=== PATIENT | male | born 1965 | race Caucasian/White ===

== ENCOUNTER 2016-03-04 19:24 | Emergency (ER) | payer OTHER, MEDICARE ==
[~2016-03-04] VITALS: Ht 177.8 cm; Wt 143.8 kg
[~2016-03-04 19:24] MED LIST: ABILIFY2 MG PO; KLOR-CON M1010 ME1 PO; LASIX20 M1 PO; NEURONTIN300 M1 PO; PRAVASTATIN SOD10 M2 PO; SEROQUEL XR400 M1 PO
--- NOTE | 2016-03-04 19:53 | ED DYSPNEA/ASTHMA COMPLAINT ---
History of Present Illness General Chief Complaint: Dyspnea (COPD, CHF, Other) Stated Complaint: DIFF BREATHING PER PT, O2 97% AT TWIST TESTER Source: patient Exam Limitations: no limitations Vital Signs & Intake/Output Vital Signs & Intake/Output Vital Signs Date Time Temp Pulse Resp B/P Pulse O2 O2 Flow FiO2 Ox Delivery Rate 03/049 98.2 99 20 128/61 96 Room Air 03/043 97.3 103 24 172/72 96 Room Air 03/049 95 Room Air 03/04 1938 98.9 112 22 136/90 96 Room Air ED Intake and Output 03/05 0000 03/04 1200 Intake Total Output Total 500 Balance -500 Output, Urine 500 Patient 317 lb Weight Allergies Coded Allergies: Iodinated Contrast Media - Oral and (IODINATED CONTRAST MEDIA - IV DYE) ( ANAPHYLAXIS 03/04/16) Reconcile Medications Albuterol Sulfate (Ventolin Hfa) 90 MCG HFA.AER.AD 2 PUF INH Q4H PRN COPD ( Reported) Albuterol Sulfate (Ventolin Hfa) 90 MCG HFA.AER.AD 2 PUF INH Q4-6 PRN PRN ASTHMA/COPD INCLUDE WITH SPACER Aripiprazole (Abilify) 15 MG TABLET 1 TAB PO DAILY MENTAL HEALTH (Reported) Benzonatate (Tessalon Perle) 100 MG CAPSULE 1-2 CAP PO TID PRN COUGH Clonazepam 0.5 MG TABLET 1 TAB PO 4 TIMES/DAY PRN ANXIETY (Reported) Furosemide (Lasix) 20 MG TABLET 20 MG PO D HEART (Reported) Furosemide 20 MG TABLET 1 TAB PO DAILY DIURETIC (Reported) Gabapentin (Neurontin) 300 MG CAPSULE 300 MG PO TID MENTAL HEALTH (Reported) Gabapentin 300 MG CAPSULE 1 CAP PO 4 TIMES/DAY MENTAL HEALTH (Reported) Levofloxacin (Levaquin) 500 MG TABLET 1 TAB PO DAILY BRONCHITIS Lisinopril 20 MG TABLET 1 TAB PO DAILY BP (Reported) Potassium Chloride (Klor-Con M10) 10 MEQ TAB.ER.PRT 20 MEQ PO BID HEART ( Reported) Potassium Chloride 20 MEQ TABLET.ER 1 TAB PO BID SUPPLEMENT (Reported) Pravastatin Sodium 40 MG TABLET 1 TAB PO QPM CHOLESTEROL (Reported) Prednisone 50 MG TABLET 1 TAB PO DAILY BRONCHITIS, COPD Quetiapine Fumarate (Seroquel XR) 300 MG TAB.ER.24H 1 TAB PO QHS MENTAL HEALTH (Reported) Quetiapine Fumarate (Seroquel) 50 MG TABLET 1 TAB PO BID PRN AGITATION ( Reported) Tamsulosin HCl 0.4 MG CAP.ER.24H 1 CAP PO DAILY URINARY (Reported) Triage Note: PT TO ED FOR NON-PRODUCTIVE COUGH AND URINARY RETENTION FOR 1 DAY, REPORTS SINCE LAST MONDAY HE HAS HAD A COLD AND IT HAS JUST BECOME PROGRESSIVELY WORSE. DENIES FEVER, NVD. Triage Nurses Notes Reviewed? yes Onset: Gradual Duration: week(s):, getting worse Timing: recent history Severity: moderate Activities at Onset: none Prior Episodes/Possible Cause: occasional episodes Modifying Factors: Improves With: rest. Associated Symptoms: cough, wheezing HPI: 50 yo gentleman, h/o 1/2 ppd smoker, h/o copd, presents with 11 days of cough productive of increased phlegm, wheezing, shortness of breath. He also notes that he is having urinary retention. "I haven't been able to pee since this evening." He is otherwise well. Past History Travel History Traveled to [place] past 21 day No Medical History Any Pertinent Medical History? see below for history Neurological: NONE EENT: NONE Cardiovascular: hypertension, hyperlipidemia Respiratory: NONE Gastrointestinal: NONE Hepatic: NONE Musculoskeletal: NONE Psychiatric: bipolar disease Endocrine: NONE Surgical History Surgical History: non-contributory Psychosocial History Who do you live with Family What is your primary language Samoan Tobacco Use: Current Daily Use Daily Tobacco Use Amount/Type: => 5 Cigarettes daily ETOH Use: denies use Illicit Drug Use: denies illicit drug use Family History Hx Contributory? No Review of Systems Review of Systems Constitutional: Reports: no symptoms. EENTM: Reports: no symptoms. Respiratory: Reports: no symptoms. Cardiovascular: Reports: no symptoms. GI: Reports: no symptoms. Genitourinary: Reports: no symptoms. Musculoskeletal: Reports: no symptoms. Skin: Reports: no symptoms. Neurological/Psychological: Reports: no symptoms. Hematologic/Endocrine: Reports: no symptoms. Immunologic/Allergic: Reports: no symptoms. All Other Systems: Reviewed and Negative Physical Exam Physical Exam General Appearance: well developed/nourished, mild distress Head: atraumatic, normal appearance Eyes: Bilateral: normal appearance, PERRL, EOMI. Ears, Nose, Throat: normal pharynx, normal ENT inspection, hearing grossly normal Neck: normal inspection, supple, full range of motion Respiratory: normal breath sounds, rhonchi, wheezing Cardiovascular: regular rate/rhythm Gastrointestinal: normal bowel sounds, soft, non-tender Extremities: normal inspection, normal capillary refill, normal range of motion, no edema Neurologic/Psych: no motor/sensory deficits, awake, alert, oriented x 3 Skin: intact, normal color, warm/dry Core Measures ACS in differential dx? No Severe Sepsis Present: No Septic Shock Present: No Progress Differential Diagnosis: asthma, bronchitis, CHF, COPD, musculoskeletal pain Plan of Care: Orders Procedure Date/time Status Yadav, Insertion/Removal/Asses 03/04 1952 Active CULTURE,URINE 03/04 1952 Active URINALYSIS 03/04 1952 Complete TROPONIN LEVEL 03/04 1939 Complete COMPREHENSIVE METABOLIC PANEL 03/04 1939 Complete CBC WITHOUT DIFFERENTIAL 03/04 1939 Complete EKG 03/04 1939 Active Laboratory Tests 03/04/162115: Urinalysis LIGHT H, Urine Color YEL, Urine Clarity CLEAR, Urine pH 7.0, Ur Specific [place] 1.020, Urine Protein NEG, Urine Ketones NEG, Urine Nitrite NEG, Urine Bilirubin NEG, Urine Urobilinogen 0.2, Ur Leukocyte Esterase NEG, Ur Microscopic SEDIMENT EXAMINED, Urine RBC 1-3, Ur Epithelial Cells RARE, Urine Hemoglobin TRACE-INTACT H, Urine Glucose NEG 03/04/16 2014: Anion Gap 12, Estimated GFR > 60, BUN/Creatinine Ratio 20.0, Glucose 148 H, Calcium 9.5, Total Bilirubin 0.4, AST 22, ALT 28, Alkaline Phosphatase 78, Troponin I < 0.01, Total Protein 7.1, Albumin 3.9, Globulin 3.2, Albumin/ Globulin Ratio 1.2, CBC w Diff NO MAN DIFF REQ, RBC 5.03, MCV 90.8, MCH 30.7, RDW 13.8, MPV 8.4, Gran % 50.2, Lymphocytes % 38.6, Monocytes % 7.3, Eosinophils % 3.1, Basophils % 0.8, Absolute Granulocytes 6.2, Absolute Lymphocytes 4.7 H, Absolute Monocytes 0.9 H, Absolute Eosinophils 0.4, Absolute Basophils 0.1, PUBS MCHC 33.8 Microbiology 03/04 2115 URINE ROUT: Urine Culture - RECD Diagnostic Imaging: Viewed by Me: Radiology Read. Discussed w/RAD: Radiology Read. CXR Impression: no acute abnormality, no infiltrates, normal size heart, normal mediastinum Initial ED EKG: normal axis, normal intervals, normal p-waves, normal QRS complex, normal sinus rhythm Comments: PATIENT: MATT HALE PRESENT AGE: 50 PATIENT ACCOUNT NO: [id number] : 66 LOCATION: [facility] ORDERING PHYSICIAN: RADHA JO DO SERVICE DATE: 03/04/16 EXAM TYPE: RAD - XRY-CHEST XRAY, PA AND LATERAL EXAMINATION: XR CHEST CLINICAL INFORMATION: Cough. COMPARISON: None. TECHNIQUE: PA and lateral views of the chest were obtained. FINDINGS: No significant abnormality is noted involving the heart, lungs, mediastinum, bony thorax, or soft tissues. IMPRESSION: Unremarkable examination. DICTATED BY: DAVID FRANCISCO MD DATE/TIME DICTATED:03/04/162125 CAREER DEVELOPMENT CONSULTANT:DOMINIC DATE/TIME TRANSCRIBED:03/04/162125 CONFIDENTIAL, DO NOT COPY WITHOUT APPROPRIATE AUTHORIZATION. <Electronically signed in Other Vendor System> SIGNED BY: DAVID FRANCISCO MD 03/04/162129 Departure Departure Disposition: HOME OR SELF CARE Condition: Stable Clinical Impression Primary Impression: COPD exacerbation Secondary Impressions: Urinary retention Referrals: UNKNOWN Departure Forms: Customer Survey General Discharge Information Prescriptions: Current Visit Scripts Levofloxacin (Levaquin) 1 TAB PO DAILY #10 TAB Prednisone 1 TAB PO DAILY #4 TAB Albuterol Sulfate (Ventolin Hfa) 2 PUF INH Q4-6 PRN PRN ASTHMA/COPD #1 INHAL Ref 3 INCLUDE WITH SPACER Benzonatate (Tessalon Perle) 1-2 CAP PO TID PRN COUGH #30 CAP Comments pt is feeling well after supportive measures... Yadav placed and drained 1000cc 's. He would like to go home. Rx for steroids and abx called in. Pt will follow up with pmd and with urology. Close follow up encouraged. Critical Care Note Critical Care Note Critical Care Time: non-applicable
[2016-03-04] MEDS ORDERED: ABILIFY15 M1 PO (20:02)
[2016-03-04] MEDS ORDERED: PRAVASTATIN SOD40 M2 PO (20:03)
[2016-03-04] MEDS ORDERED: SEROQUEL XR300 M1 PO (20:03)
[2016-03-04] MEDS ORDERED: SEROQUEL50 M1 PO (20:03)
[2016-03-04] MEDS ORDERED: LISINOPRIL20 M1 PO (20:04)
[2016-03-04] MEDS ORDERED: FUROSEMIDE20 M1 PO (20:04)
[2016-03-04] MEDS ORDERED: TAMSULOSIN HCL0.4 M1 PO (20:04)
[2016-03-04] MEDS ORDERED: CLONAZEPAM0.5 M2 PO (20:05)
[2016-03-04] MEDS ORDERED: GABAPENTIN300 M2 PO (20:05)
[2016-03-04] MEDS ORDERED: POTASSIUM CHLO20 ME4 PO (20:06)
[2016-03-04] MEDS ORDERED: VENTOLIN HFA18 GM INH ×2 (20:06→22:25)
[2016-03-04 20:22] LABS: ABSOLUTE BASOPHIL COUNT 0.1 /CUMM (0.0-0.2); ABSOLUTE EOSINOPHIL COUNT 0.4 /CUMM (0.0-0.7); ABSOLUTE GRANULOCYTE CT 6.2 /CUMM (1.4-6.5); ABSOLUTE LYMPH COUNT 4.7 /CUMM (1.2-3.4); ABSOLUTE MONOCYTE COUNT 0.9 /CUMM (0.10-0.60); BASOPHIL % 0.8 % (0.0-2.0); EOSINOPHIL % 3.1 % (0-5); GRANULOCYTE % 50.2 % (42.2-75.2); HEMATOCRIT 45.7 % (42-52); MEAN CORPUSCULAR HGB 30.7 PG (27.0-31.0); MEAN CORPUSCULAR HGB CONC 33.8 G/DL (33.0-37.0); MEAN CORPUSCULAR VOLUME 90.8 FL (80.0-94.0); MEAN PLATELET VOLUME 8.4 FL (7.4-10.4); PLATELET COUNT 214 /CUMM (130-400); RBC DISTRIBUTION WIDTH 13.8 % (11.5-14.5); RED BLOOD CELL CT 5.03 /CUMM (4.70-6.10); WHITE BLOOD CELL COUNT 12.3 /CUMM (4.8-10.8)
--- NOTE | 2016-03-04 21:30 | RADIOLOGY REPORT ---
EXAMINATION: XR CHEST CLINICAL INFORMATION: Cough. COMPARISON: None. TECHNIQUE: PA and lateral views of the chest were obtained. FINDINGS: No significant abnormality is noted involving the heart, lungs, mediastinum, bony thorax, or soft tissues. IMPRESSION: Unremarkable examination.
[2016-03-04] MEDS ORDERED: TESSALON PERLE100 M1 PO (22:25)
[2016-03-04] MEDS ORDERED: PREDNISONE50 M1 PO (22:25)
[2016-03-04] MEDS ORDERED: LEVAQUIN500 M1 PO (22:25)
[2016-03-04 22:59] VITALS: BP 128/61
[2016-03-05] MEDS ORDERED: MEDROL4 M2 PO (23:54)
[2016-03-05] MEDS ORDERED: AMOX-CLAV 875-1 EACH PO (23:54)
[2016-03-05] MEDS ORDERED: TESSALON PERLE100 M1 PO (23:55)
== END 2016-03-04 23:00 ==
LOC: ERH 19:24
PROVIDERS: Emergency Medicine
DX: J44.1 Chronic obstructive pulmonary disease with (acute) exacerbation (principal); R33.9 Retention of urine, unspecified
CPT/HCPCS: 1263; 81001; 87086; 93005; 93010; 96374; J2930; J3490

== ENCOUNTER 2016-03-05 12:38 | Inpatient (IN) | payer OTHER, MEDICARE ==
[~2016-03-05] VITALS: Ht 177.8 cm; Wt 141.5 kg
[~2016-03-05 12:38] MED LIST changes: +ABILIFY15 M1 PO; +CLONAZEPAM0.5 M2 PO; +FUROSEMIDE20 M1 PO; +GABAPENTIN300 M2 PO; +LEVAQUIN500 M1 PO; +LISINOPRIL20 M1 PO; +POTASSIUM CHLO20 ME4 PO; +PRAVASTATIN SOD40 M2 PO; +PREDNISONE50 M1 PO; +SEROQUEL XR300 M1 PO; +SEROQUEL50 M1 PO; +TAMSULOSIN HCL0.4 M1 PO; +TESSALON PERLE100 M1 PO; +VENTOLIN HFA18 GM INH
--- NOTE | 2016-03-05 12:44 | NUR ---
PT BIBA FROM HOME C/O SOB AND LOW URINARY OUTPUT SINCE YESTERDAY. PT WAS SEEN HERE YESTERDAY AND HAD A LIM PLACED FOR SAME. PT STATES ONLY 135 CC OUTPUT SINCE LAST NIGHT. PT STATES CHEST TIGHTNESS AND STATES "I FEEL LIKE IM SLOWLY DROWNING"
--- NOTE | 2016-03-05 12:46 | NUR ---
PER EMS, LOW O2 SATS AT HOME. STATES 90% WHILE ON 2LNC
--- NOTE | 2016-03-05 12:56 | ED DYSPNEA/ASTHMA COMPLAINT ---
History of Present Illness General Chief Complaint: General Adult Stated Complaint: BIBA SOB; URINARY RETENTION Source: patient, old records Exam Limitations: no limitations Vital Signs & Intake/Output Vital Signs & Intake/Output Vital Signs Date Time Temp Pulse Resp B/P Pulse O2 O2 Flow FiO2 Ox Delivery Rate 03/05 1611 97.5 104 20 162/91 96 Nasal 2.0L Cannula 03/05 1310 98 Nasal 2.0L Cannula 03/05 1250 97 Nasal 2.5L Cannula 03/05 1243 98.9 126 24 135/81 97 Nasal 2.5L Cannula Allergies Coded Allergies: Iodinated Contrast Media - Oral and (IODINATED CONTRAST MEDIA - IV DYE) ( ANAPHYLAXIS 03/04/16) Reconcile Medications Albuterol Sulfate (Ventolin Hfa) 90 MCG HFA.AER.AD 2 PUF INH Q4H PRN COPD ( Reported) Albuterol Sulfate (Ventolin Hfa) 90 MCG HFA.AER.AD 2 PUF INH Q4-6 PRN PRN ASTHMA/COPD INCLUDE WITH SPACER Aripiprazole (Abilify) 15 MG TABLET 1 TAB PO DAILY MENTAL HEALTH (Reported) Benzonatate (Tessalon Perle) 100 MG CAPSULE 1-2 CAP PO TID PRN COUGH Clonazepam 0.5 MG TABLET 1 TAB PO 4 TIMES/DAY PRN ANXIETY (Reported) Furosemide 20 MG TABLET 1 TAB PO DAILY DIURETIC (Reported) Gabapentin 300 MG CAPSULE 1 CAP PO 4 TIMES/DAY MENTAL HEALTH (Reported) Levofloxacin (Levaquin) 500 MG TABLET 1 TAB PO DAILY BRONCHITIS Lisinopril 20 MG TABLET 1 TAB PO DAILY BP (Reported) Potassium Chloride 20 MEQ TABLET.ER 1 TAB PO BID SUPPLEMENT (Reported) Pravastatin Sodium 40 MG TABLET 1 TAB PO QPM CHOLESTEROL (Reported) Prednisone 50 MG TABLET 1 TAB PO DAILY BRONCHITIS, COPD Quetiapine Fumarate (Seroquel XR) 300 MG TAB.ER.24H 1 TAB PO QHS MENTAL HEALTH (Reported) Quetiapine Fumarate (Seroquel) 50 MG TABLET 1 TAB PO BID PRN AGITATION ( Reported) Tamsulosin HCl 0.4 MG CAP.ER.24H 1 CAP PO DAILY URINARY (Reported) Triage Note: PT BIBA FROM HOME C/O SOB AND LOW URINARY OUTPUT SINCE YESTERDAY. PT WAS SEEN HERE YESTERDAY AND HAD A LIM PLACED FOR SAME. PT STATES ONLY 135 CC OUTPUT SINCE LAST NIGHT. PT STATES CHEST TIGHTNESS AND STATES "I FEEL LIKE IM SLOWLY DROWNING" Triage Nurses Notes Reviewed? yes Onset: Abrupt Duration: day(s): (2) Timing: recent history Severity: severe Activities at Onset: none Modifying Factors: Worsens With: movement. Associated Symptoms: cough, decreased urinary output HPI: This is a 50 year old male with history of COPD who presents to the ER with worseing shortness of breath, cough and tightness. He was here yesterday and prescribed steroids antibiotics, albuterol and tessalon pearles. He reports that he has been feeling worse. He states he is short of breath with any exertion. He is trying to cough but has a lot of pain in his chest when he coughs. No fever or chills. Denies any sick contacts. He also reports that the Lim catheter was placed yesterday is not draining properly. Lim was placed secondary to urinary retention. Past History Travel History Traveled to [place] past 21 day No Medical History Any Pertinent Medical History? see below for history Neurological: NONE EENT: NONE Cardiovascular: hypertension, hyperlipidemia Respiratory: COPD Gastrointestinal: NONE Hepatic: NONE Musculoskeletal: NONE Psychiatric: bipolar disease Endocrine: diabetes Surgical History Surgical History: non-contributory (HERNIA REPAIR), appendectomy Psychosocial History Who do you live with Family What is your primary language Sami Tobacco Use: Current Daily Use Daily Tobacco Use Amount/Type: => 5 Cigarettes daily ETOH Use: denies use Illicit Drug Use: denies illicit drug use Family History Hx Contributory? No Review of Systems Review of Systems Constitutional: Reports: malaise, weakness. Denies: chills, fever. Respiratory: Reports: cough, short of breath. Denies: sputum production. Cardiovascular: Reports: chest pain. Denies: palpitations, peripheral edema, syncope. GI: Denies: abdominal pain, nausea, vomiting. Genitourinary: Reports: see HPI (Lim NOT DRAINING). Hematologic/Endocrine: Denies: bruising, bleeding, polyuria, polydipsia. Physical Exam Physical Exam General Appearance: well developed/nourished, alert, awake, anxious, moderate distress, obese Head: atraumatic, normal appearance Eyes: Bilateral: normal appearance, PERRL, EOMI. Ears, Nose, Throat: normal pharynx, normal ENT inspection, hearing grossly normal Neck: normal inspection, supple, full range of motion Respiratory: accessory muscle use, wheezing, respiratory distress Cardiovascular: tachycardia Peripheral Pulses: 2+ radial (R), 2+ radial (L) Gastrointestinal: soft, non-tender, OBESE Extremities: normal inspection, normal capillary refill, normal range of motion, no edema Neurologic/Psych: no motor/sensory deficits, awake, alert, oriented x 3, ANXIOUS Skin: intact, normal color, warm/dry Core Measures ACS in differential dx? No Severe Sepsis Present: No Septic Shock Present: No Progress Differential Diagnosis: asthma, COPD, pulmonary embolism, pneumonia, pneumothorax Plan of Care: Orders Procedure Date/time Status Heart Healthy Diet 03/06 B Active Admit to inpatient 03/05 1602 Active Vital Signs 03/05 1602 Active Code Status 03/05 1602 Active Add-on Test (ER Only) 03/05 1517 Active RAPID VIRAL INFLUENZA A 03/05 1355 Complete URINALYSIS 03/05 1354 Active TROPONIN LEVEL 03/05 1334 Complete COMPREHENSIVE METABOLIC PANEL 03/05 1334 Complete THYROID STIMULATING HORMONE 03/05 1300 Complete PARTIAL THROMBOPLASTIN TIME 03/05 1300 Complete PROTHROMBIN TIME 03/05 1300 Complete FREE T4 03/05 1300 Complete D-DIMER 03/05 1300 Complete RT ED ORDERS 03/05 1258 Active CBC WITHOUT DIFFERENTIAL 03/05 1258 Complete EKG 03/05 1246 Active Current Medications Sig/Emely Start time Last Medication Dose Stop Time Status Admin Albuterol Sulfate 3 ML ONCE ONE 03/05 1630 UNVr (Proventil) 03/05 1631 Ipratropium [place] 2.5 ML ONCE ONE 03/05 1630 UNVr (Atrovent) 03/05 1631 Laboratory Tests 03/05/16 1334: Anion Gap 17 H, Estimated GFR > 60, BUN/Creatinine Ratio 23.3, Glucose 269 H, Calcium 9.8, Total Bilirubin 0.4, AST 16 L, ALT 25, Alkaline Phosphatase 88, Troponin I < 0.01, Total Protein 7.1, Albumin 4.0, Globulin 3.1, Albumin/ Globulin Ratio 1.3, TSH 0.105 L, Free T4 0.85, PT 11.1, INR 1.06, APTT 29, D- Dimer < 200, CBC w Diff MAN DIFF ORDERED, RBC 5.04, MCV 91.2, MCH 30.6, RDW 14.1 , MPV 8.6, Gran % 79.5 H, Lymphocytes % 13.1 L, Monocytes % 7.0, Eosinophils % 0.1, Basophils % 0.3, Absolute Granulocytes 14.5 H, Absolute Lymphocytes 2.4, Absolute Monocytes 1.3 H, Absolute Eosinophils 0, Absolute Basophils 0.1, Platelet Estimate ADEQUATE, Normocytic RBCs VERIFIED, Normochromic RBCs VERIFIED , PUBS MCHC 33.6 03/05/16 1258: Troponin I Cancelled EKG, phototypesetting equipment monitor. IV steroids, Atrovent nebulizer. Chest x-ray just done yesterday read as normal. And denies any improvement after IV steroids and Atrovent. IV Toradol given for pain control. D-dimer is negative. Patient ambulated and became increasingly short of breath although oxygen saturation maintained at 96%. His heart rate went up to 114 and states that he feels worse. IV azithromycin, repeat DuoNeb ordered. Discussed with hospitalist for admission. (HERACLIO MARCUS,CLYDE) Initial ED EKG: SINUS TACHYCARDIA Departure Departure Time of Disposition: 1603 Disposition: STILL A PATIENT Condition: Stable Clinical Impression Primary Impression: COPD exacerbation Secondary Impressions: Urinary retention Referrals: PATIENT HAS NO PRIMARY CARE DR Departure Forms: Customer Survey General Discharge Information Admission Note Spoke With: LENNY MARCUS,KOKO Documentation of Exam: Documentation of any treatments & extenuating circumstances including Concerns Regarding Discharge (functional status, medication knowledge or non-compliance, living conditions, etc.) that warrant an admission rather than observation: [trc /nebs, iv sterids, iv abx, smoke cessation counselling, consider pulmonary consult, urology consult for any lim issues] Critical Care Note Critical Care Note Critical Care Time: non-applicable
--- NOTE | 2016-03-05 13:11 | NUR ---
IV ESTABLISHED. NORMAL SALINE INFUSING. SOLUMEDROL ADMINISTERED. NEB TX IN PROGRESS.
--- NOTE | 2016-03-05 13:37 | NUR ---
BLOOD DRAWN AND SENT TO LAB. LAV,SST,2 BLUE
[2016-03-05 13:46] LABS: ABSOLUTE BASOPHIL COUNT 0.1 /CUMM (0.0-0.2); ABSOLUTE EOSINOPHIL COUNT 0 /CUMM (0.0-0.7); ABSOLUTE GRANULOCYTE CT 14.5 /CUMM (1.4-6.5); ABSOLUTE LYMPH COUNT 2.4 /CUMM (1.2-3.4); ABSOLUTE MONOCYTE COUNT 1.3 /CUMM (0.10-0.60); BASOPHIL % 0.3 % (0.0-2.0); EOSINOPHIL % 0.1 % (0-5); HEMATOCRIT 45.9 % (42-52); MEAN CORPUSCULAR HGB 30.6 PG (27.0-31.0); MEAN CORPUSCULAR HGB CONC 33.6 G/DL (33.0-37.0); MEAN CORPUSCULAR VOLUME 91.2 FL (80.0-94.0); MEAN PLATELET VOLUME 8.6 FL (7.4-10.4); PLATELET COUNT 228 /CUMM (130-400); RBC DISTRIBUTION WIDTH 14.1 % (11.5-14.5); RED BLOOD CELL CT 5.04 /CUMM (4.70-6.10); WHITE BLOOD CELL COUNT 18.2 /CUMM (4.8-10.8)
[2016-03-05 13:51] LABS: GRANULOCYTE % 79.5 % (42.2-75.2)
[2016-03-05 14:10] LABS: PT 11.1 SEC (9.4-12.5); PTT 29 SEC (25-37)
--- NOTE | 2016-03-05 15:58 | NUR ---
PT REQUESTING PAIN MEDICINE "EVERY MUSCLE IN MY BODY ACHES AND WHEN I SNEEZE IT HURTS AND I CAN'T YAWN AND I REALLY WANT YAWN"
--- NOTE | 2016-03-05 16:45 | Admission Certification ---
Admission Certification Certification Statement - As attending physician, I certify that at the time of - admission, based on clinical presentation, severity of - symptoms, need for further diagnostic testing and - therapeutic interventions, and risk of adverse outcomes - without in-hospital treatment, in my clinical assessment, - this patient requires an acute hospital stay for a minimum - of two nights or longer. I have also considered psychsocial - factors such as support system, advanced age, financial - issues, cognitive issues, and failed out-patient treatments, - past re-admission history, safety of patient, and lack of - compliance as applicable. Specific rationale supporting this admission is: COPD exacerbation
--- NOTE | 2016-03-05 16:49 | PN- Att Addend ---
Attending Addendum Attending Brief Note Patient seen and examined in the emergency room. Plan of care discussed with the medical team and the patient. Available lab work and radiology test reports were reviewed. Patient was seen in the emergency room yesterday for difficulty breathing. He was given a prescription prednisone which she did not fill due to lack of money. He returns today with the difficulty breathing. His visibility. He also reports a chest tightness with the difficulty breathing. He also reports increased coughing without any sputum production. Denies any recent fever or chills. He does report URI type symptoms. Patient has never been admitted to this hospital before. Please see resident note for past medical history social history allergy medication and family history. Vital Signs Date Time Temp Pulse Resp B/P Pulse O2 O2 Flow FiO2 Ox Delivery Rate 03/05 1611 97.5 104 20 162/91 96 Nasal 2.0L Cannula 03/05 1310 98 Nasal 2.0L Cannula 03/05 1250 97 Nasal 2.5L Cannula 03/05 1243 98.9 126 24 135/81 97 Nasal 2.5L Cannula Intake & Output 03/05 1600 03/05 0800 03/05 0000 Intake Total 0 Output Total Balance 0 Intake, Oral 0 Patient 312 lb Weight Exam: General: Patient is a obese male who is awake alert oriented with mild respiratory distress. He appears anxious CVS: S1 plus S2 without any murmur or gallops Chest: Few scattered crepitation without any wheeze. There is no respiratory distress. Abdomen: Soft nontender, bowel sound present, no guarding or rebound OCCUPATIONAL THERAPY DIRECTOR: Awake alert oriented without any focal neuro deficit and follows command appropriately Extremities: Bilateral 2+ leg edema; no clubbing or cyanosis noted Laboratory Tests 03/05 03/05 1334 1258 Chemistry Sodium (137 - 145 mmol/L) 138 Potassium (3.5 - 5.1 mmol/L) 4.4 Chloride (98 - 107 mmol/L) 102 Carbon Dioxide (22 - 30 mmol/L) 20 L Anion Gap (5 - 16) 17 H BUN (9 - 20 mg/dL) 21 H Creatinine (0.7 - 1.2 mg/dL) 0.9 Estimated GFR (>60 ml/min) > 60 BUN/Creatinine Ratio (7 - 25 %) 23.3 Glucose (65 - 99 mg/dL) 269 H Calcium (8.4 - 10.2 mg/dL) 9.8 Total Bilirubin (0.2 - 1.3 mg/dL) 0.4 AST (17 - 59 U/L) 16 L ALT (21 - 72 U/L) 25 Alkaline Phosphatase (< 127 U/L) 88 Troponin I (<0.11 ng/ml) < 0.01 Cancelled Total Protein (6.3 - 8.2 g/dL) 7.1 Albumin (3.5 - 5.0 g/dL) 4.0 Globulin (1.9 - 4.2 gm/dL) 3.1 Albumin/Globulin Ratio (1.1 - 2.2 %) 1.3 TSH (0.270 - 4.200 uIU/mL) 0.105 L Free T4 (0.64 - 1.79 ng/dL) 0.85 Coagulation PT (9.4 - 12.5 SEC) 11.1 INR (0.90 - 1.17) 1.06 APTT (25 - 37 SEC) 29 D-Dimer (70 - 232 ng/ml) < 200 Hematology CBC w Diff MAN DIFF ORDERED WBC (4.8 - 10.8 /CUMM) 18.2 H RBC (4.70 - 6.10 /CUMM) 5.04 Hgb (14.0 - 18.0 G/DL) 15.4 Hct (42 - 52 %) 45.9 MCV (80.0 - 94.0 FL) 91.2 MCH (27.0 - 31.0 PG) 30.6 RDW (11.5 - 14.5 %) 14.1 Plt Count (130 - 400 /CUMM) 228 MPV (7.4 - 10.4 FL) 8.6 Gran % (42.2 - 75.2 %) 79.5 H Lymphocytes % (20.5 - 51.1 %) 13.1 L Monocytes % (1.7 - 9.3 %) 7.0 Eosinophils % (0 - 5 %) 0.1 Basophils % (0.0 - 2.0 %) 0.3 Absolute Granulocytes (1.4 - 6.5 /CUMM) 14.5 H Absolute Lymphocytes (1.2 - 3.4 /CUMM) 2.4 Absolute Monocytes (0.10 - 0.60 /CUMM) 1.3 H Absolute Eosinophils (0.0 - 0.7 /CUMM) 0 Absolute Basophils (0.0 - 0.2 /CUMM) 0.1 Platelet Estimate (ADEQUATE) ADEQUATE Normocytic RBCs VERIFIED Normochromic RBCs VERIFIED PUBS MCHC (33.0 - 37.0 G/DL) 33.6 Chest x-ray done yesterday was unremarkable. Assessment and problem list * Shortness of breath likely COPD exacerbation * Hyperglycemia and diabetes * Elevated WBC count likely due to recent steroid use * Obesity * Anxiety Plan * Start Solu-Medrol 40 mg IV every 8 * Start oral Augmentin 875 mg by mouth twice a day. Note that his home medication list Levaquin which can be held at this point * Continue Abilify and Seroquel * Continue Lasix and lisinopril * Keep Yadav in for output monitoring * Check a BNP * Start insulin sliding scale
--- NOTE | 2016-03-05 18:26 | History & Physical ---
General Information and HPI MD Statement: I have seen and personally examined MATT HALE and documented this H&P. The patient is a 50 year old M who presented with a patient stated chief complaint of [cough, shortness of breath]. Source of Information: patient, family, old records Exam Limitations: no limitations History of Present Illness: 50-year-old male with past medical history of COPD, hypertension, current smoker , hyperlipidemia, bipolar disorder presents to the ED with complaints of worsening shortness of breath and cough and tightness for the last 4 days. Patient reports all his symptoms started with sore throat, cough, with productive phlegm and sputum, greenish in color. He also reports chest pain due to consistent coughing for all the studies. Denies fever, chills, sick contacts. He is up-to-date with his influenza and pneumonia shots. History of intubation in the past. Denies syncope, palpitations, nausea, vomiting, abdominal pain. He was seen on 03/04/2016 for similar symptoms and urinary retention. Yadav was placed which drained about 1000 mL. Allergies/Medications Allergies: Coded Allergies: Iodinated Contrast Media - Oral and (IODINATED CONTRAST MEDIA - IV DYE) ( ANAPHYLAXIS 03/04/16) Home Med list Albuterol Sulfate (Ventolin Hfa) 90 MCG HFA.AER.AD 2 PUF INH Q4H PRN COPD ( Reported) Albuterol Sulfate (Ventolin Hfa) 90 MCG HFA.AER.AD 2 PUF INH Q4-6 PRN PRN ASTHMA/COPD INCLUDE WITH SPACER Amoxicillin/Clavulanate Potass (Amox-Clav 875-125 MG Tablet) 875 MG-125 MG TABLET 875 MG PO Q12 cough Aripiprazole (Abilify) 15 MG TABLET 1 TAB PO DAILY MENTAL HEALTH (Reported) Benzonatate (Tessalon Perle) 100 MG CAPSULE 1 CAP PO TID cough Clonazepam 0.5 MG TABLET 1 TAB PO 4 TIMES/DAY PRN ANXIETY (Reported) Furosemide 20 MG TABLET 1 TAB PO DAILY DIURETIC (Reported) Gabapentin 300 MG CAPSULE 1 CAP PO 4 TIMES/DAY MENTAL HEALTH (Reported) Lisinopril 20 MG TABLET 1 TAB PO DAILY BP (Reported) Methylprednisolone. (Medrol) 4 MG TAB.DS.PK 1 DP PO AD copd exc 6 on day 1 then reduce by one tablet daily until gone Potassium Chloride 20 MEQ TABLET.ER 1 TAB PO BID SUPPLEMENT (Reported) Pravastatin Sodium 40 MG TABLET 1 TAB PO QPM CHOLESTEROL (Reported) Prednisone 50 MG TABLET 1 TAB PO DAILY BRONCHITIS, COPD Quetiapine Fumarate (Seroquel XR) 300 MG TAB.ER.24H 1 TAB PO QHS MENTAL HEALTH (Reported) Quetiapine Fumarate (Seroquel) 50 MG TABLET 1 TAB PO BID PRN AGITATION ( Reported) Tamsulosin HCl 0.4 MG CAP.ER.24H 1 CAP PO DAILY URINARY (Reported) Past History Travel History Traveled to [place] past 21 day No Medical History Neurological: NONE EENT: NONE Cardiovascular: hypertension, hyperlipidemia Respiratory: COPD Gastrointestinal: NONE Hepatic: NONE Musculoskeletal: NONE Psychiatric: bipolar disease Endocrine: diabetes Surgical History Surgical History: non-contributory (HERNIA REPAIR), appendectomy Past Family/Social History Psychosocial History Smoking Status: Current Everyday Smoker ETOH Use: denies use Illicit Drug Use: denies illicit drug use Functional Ability ADLs Independent: dressing, eating, toileting, bathing. Ambulation: independent IADLs Independent: shopping, housework, finances, food prep, telephone, transportation , medication admin. 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 Exam & Diagnostic Data Last 24 Hrs of Vital Signs/I&O Vital Signs Date Time Temp Pulse Resp B/P Pulse O2 O2 Flow FiO2 Ox Delivery Rate 03/05 1943 98.2 112 20 142/69 94 Room Air Room Air 03/05 1630 94 Nasal 2.0L Cannula 03/05 1611 97.5 104 20 162/91 96 Nasal 2.0L Cannula 03/05 1310 98 Nasal 2.0L Cannula 03/05 1250 97 Nasal 2.5L Cannula 03/05 1243 98.9 126 24 135/81 97 Nasal 2.5L Cannula Intake & Output 03/05 1600 03/05 0800 03/05 0000 Intake Total 0 Output Total Balance 0 Intake, Oral 0 Patient 312 lb Weight Physical Exam General Appearance Alert, Oriented X3, Cooperative, No Acute Distress Skin No Rashes Cardiovascular Regular Rate, Normal S1, Normal S2, No Murmurs Lungs b/l decreased breath sounds noted. no audible wheeze, crackles heard. Abdomen Normal Bowel Sounds, Soft, No Tenderness Extremities No Clubbing, No Cyanosis, No Edema Last 24 Hrs of Labs/Davide: Laboratory Tests 03/05/16 1953: Urine Color YEL, Urine Clarity HAZY H, Urine pH 6.0, Ur Specific [place] 1.025, Urine Protein 30 H, Urine Ketones TRACE H, Urine Nitrite NEG, Urine Bilirubin NEG, Urine Urobilinogen 0.2, Ur Leukocyte Esterase NEG, Ur Microscopic SEDIMENT EXAMINED, Urine RBC >75 H, Urine WBC RARE, Ur Epithelial Cells RARE, Urine Hemoglobin LARGE H, Urine Glucose >=1000 H 03/05/16 1334: Anion Gap 17 H, Estimated GFR > 60, BUN/Creatinine Ratio 23.3, Glucose 269 H, Calcium 9.8, Total Bilirubin 0.4, AST 16 L, ALT 25, Alkaline Phosphatase 88, Troponin I < 0.01, Afx-H-Btyemszczvk Pept 159 H, Total Protein 7.1, Albumin 4.0 , Globulin 3.1, Albumin/Globulin Ratio 1.3, TSH 0.105 L, Free T4 0.85, PT 11.1, INR 1.06, APTT 29, D-Dimer < 200, CBC w Diff MAN DIFF ORDERED, RBC 5.04, MCV 91.2, MCH 30.6, RDW 14.1, MPV 8.6, Gran % 79.5 H, Lymphocytes % 13.1 L, Monocytes % 7.0, Eosinophils % 0.1, Basophils % 0.3, Absolute Granulocytes 14.5 H, Absolute Lymphocytes 2.4, Absolute Monocytes 1.3 H, Absolute Eosinophils 0, Absolute Basophils 0.1, Platelet Estimate ADEQUATE, Normocytic RBCs VERIFIED, Normochromic RBCs VERIFIED, PUBS MCHC 33.6 03/05/16 1258: Troponin I Cancelled Diagnostic Data CXR Results Unremarkable Assessment/Plan Assessment: Assessment and plan 1. Acute hypoxic respiratory failure secondary to COPD exacerbation: We'll admit patient in general medical floor, start him on IV Solu-Medrol 40 mg every 8, by mouth antibiotic as there is no evidence of infiltrate in the chest x-ray, but has significant leukocytosis. Off note patient has been afebrile since admission. We will continue him on TRC nebulizes. Patient does have a commercial lines insurance agent as an outpatient in [place]. He is not on long-acting beta agonist/steroids. We will clarify with his pharmacy in a.m. Patient also gives a history of blood sugars being uncontrolled while he is on steroids. We will start him on a NovoLog sliding scale. 2. Leukocytosis: Source for infection unclear. Urine was cultured in the ED. We will also obtain sputum culture 2. Hyperglycemia: No document a history of diabetes mellitus but claims history in May shows that he was on Januvia and metformin. We will continue to monitor his blood sugars while he is on NovoLog sliding scale 4. Hypertension we will continue on his home medications including lisinopril. 5. Bipolar disorder patient takes Seroquel at bedtime and as needed which we will continue. 6. Hyperlipidemia: Continue statins. 7. History of urinary retention most likely due to the bening prostatic hypertrophy: He was placed on Foleys in the ED on 03/04/16 with a total drainage of 1000 ml. We will continue Yadav irrigation and monitor output. He should follow-up with urology as an outpatient. Full CODE STATUS DVT prophylaxis with subcutaneous Lovenox Unfortunately patient's father has and he has to be discharged in a.m. We were informed by nursing. Family member will come and pick im in morning. We will have his paper work ready. As Ranked By This Provider Problem List: 1. COPD exacerbation 2. Urinary retention Core Measures/Miscellaneous Acute Coronary Syndrome ACS Diagnosis: No Cerebrovascular Accident CVA/TIA Diagnosis: No Congestive Heart Failure CHF Diagnosis: No Venous Thromboembolism VTE Risk Factors: Age > 40 VTE Prophylaxis Ordered Inpt: Pharm- Lovenox No Mech VTE prophylaxis d/t: No contraindications No VTE Pharm Prophylaxis d/t: No contraindications VTE Diagnosis: No VTE Type: NONE VTE Confirmed by (Test): NONE Severe Sepsis Severe Sepsis Present: No Septic Shock Septic Shock Present: No Miscellaneous Documentation Attending Case Discussed With: LENNY MARCUS,KOKO Primary Care Physician: BEBETO ARMENDARIZ MD Patient sees these Specialists pulm Level of Patient Care: General Medicine
--- NOTE | 2016-03-05 18:50 | NUR ---
PT HAS BED ASSIGNMENT 229-1. RN NOTIFIED.
--- NOTE | 2016-03-05 19:44 | NUR ---
PT SITTING ON EDGE OF BED, OFFERS NO COMPLAINTS AT THIS TIME. INFORMED WAITING PERFORMED. PT REUSING TO CHANGE INTO GOWN AT THIS TIME, STATES "I'LL CHANGE WHEN I GET UPSTAIRS."
--- NOTE | 2016-03-05 19:56 | NUR ---
URINE TRIO SENT. HOUSE STAFF PAGED PER REQUEST OF PT REGARDING NEED FOR DISCHARGE DUE TO EXTENUATING FAMILY CIRCUMSTANCES.
--- NOTE | 2016-03-05 20:29 | NUR ---
MOD MADE AWARE OF PT FAMILY CIRCUMSTANCES AND WISHES FOR DISCHARGE IN THE MORNING.
--- NOTE | 2016-03-05 20:29 | NUR ---
REPORT GIVEN TO ABRAHAM FAGAN. DISTRIBUT[facility] CALLED FOR PT TRANSPORT.
--- NOTE | 2016-03-05 20:38 | NUR ---
PT ACCIDENTLY TOOK OUT IV, BLEEDING CONTROLLED AND IV PLACED IN R HAND WITH NO INCIDENT.
[2016-03-05] MEDS ORDERED: AMOX-CLAV 875-1 EACH PO (23:54)
[2016-03-05] MEDS ORDERED: MEDROL4 M2 PO (23:54)
[2016-03-05] MEDS ORDERED: TESSALON PERLE100 M1 PO (23:55)
--- NOTE | 2016-03-05 23:58 | Patient Discharge Instructions ---
Discharge Instructions General Discharge Information You were seen/treated for: copd exacerbation Special Instructions: 1. Follow up with PCP in a week 2. Follow up with Pulmnology 3. You will be discharged on a Yadav please follow-up with your urologist within 1 week of discharge Diet Recommended Diet: Diabetic Activity Full Activity/No Limits: Yes Acute Coronary Syndrome Inclusion Criteria At DC or during hospital stay patient has or had the following: ACS DIAGNOSIS No Discharge Core Measures Meds if any: Prescribed or Continued at Discharge Meds if any: NOT Prescribed or Continued at Discharge Congestive Heart Failure Inclusion Criteria At DC or during hospital stay patient has or had the following: CHF DIAGNOSIS No Discharge Core Measures Meds if any: Prescribed or Continued at Discharge Meds if any: NOT Prescribed or Continued at Discharge Cerebrovascular accident Inclusion Criteria At DC or during hospital stay patient has or had the following: CVA/TIA Diagnosis No Discharge Core Measures Meds if any: Prescribed or Continued at Discharge Meds if any: NOT Prescribed or Continued at Discharge Venous thromboembolism Inclusion Criteria VTE Diagnosis No VTE Type NONE VTE Confirmed by (Test) NONE Discharge Core Measures - Per Current guidelines, there needs to be overlap - treatment for the first 5 days of Warfarin therapy. - If discharged on Warfarin prior to 5 days of - overlap therapy, the patient will need to be - assessed for post discharge needs including - *Post discharge parental anticoagulation - *Warfarin and/or parental anticoagulation education - *Follow up date to check INR post discharge At least 5 days overlap therapy as Inpatient No Meds if any: Prescribed or Continued at Discharge Note: Overlap Therapy is Warfarin and Anticoagulant Meds if any: NOT Prescribed or Continued at Discharge
--- NOTE | 2016-03-06 02:23 | NUR ---
PT A&Ox3, DENIES PAIN AT THIS TIME. REPORTS FATHER PASSING AWAY AND MAY NEED TO LEAVE TOMORROW TO HANDLE THE ARRANGEMENTS. ORIENTED TO FLOOR. CALL NOLEN WITHIN REACH.
--- NOTE | 2016-03-06 02:30 | NUR ---
NOTE: PT REFUSED TO TAKE OFF CLOTHES FROM HOME. DENIES RASHES, OPEN AREAS ON SKIN.
[2016-03-06 06:16] VITALS: BP 116/80
--- NOTE | 2016-03-06 08:57 | PN- Housestaff ---
Subjective Follow-up For: COPD exacerbation Subjective: Seen and examined patient, is complaining of shortness of breath when we tried to taper his oxygen down to 1 L phases feelcomfortable on 2 L NC of oxygen. He has to attend his father's tomorrow morning. Denies fever, chills, chest pain, palpitations Review of Systems Constitutional: Denies: chills, diaphoresis, fever, malaise, weakness, unexplained weight loss. Cardiovascular: Denies: chest pain, edema, orthopena, palpitations, peripheral edema, syncope. Respiratory: Reports: short of breath. Denies: cough, hemoptysis, orthopnea, sputum production, stridor, wheezing. Objective Last 24 Hrs of Vital Signs/I&O Vital Signs Date Time Temp Pulse Resp B/P Pulse O2 O2 Flow FiO2 Ox Delivery Rate 03/06 0934 107 130/80 03/06 0934 107 130/80 03/06 0616 97.4 110 22 116/80 96 Nasal 2.0L Cannula 03/06 0207 97 Nasal 2.0L Cannula 03/05 1943 98.2 112 20 142/69 94 Room Air Room Air 03/05 1630 94 Nasal 2.0L Cannula 03/05 1611 97.5 104 20 162/91 96 Nasal 2.0L Cannula Intake & Output 03/06 1600 03/06 0800 03/06 0000 Intake Total 140 Output Total 1900 1450 550 Balance -1900 -1310 -550 Intake, IV 20 Intake, Oral 120 Output, Urine 1900 1450 550 Patient 312 lb Weight Physical Exam General Appearance: Alert, Oriented X3, Cooperative, Mild Distress Cardiovascular: Regular Rate, Normal S1, Normal S2 Lungs: b/l rhonchi Current Medications: Current Medications Sig/Emely Start time Last Medication Dose Route Stop Time Status Admin Albuterol Sulfate 3 ML ONCE ONE 03/05 1630 DC INH 03/05 1631 Amoxicillin/ 875 MG Q12 03/05 2200 AC 03/06 Clavulanate Potassium PO 0934 Aripiprazole 15 MG DAILY 03/06 1000 AC 03/06 PO 0934 Azithromycin 500 MG ONCE ONE 03/05 1530 DC 03/05 Sodium Chloride 250 ML IV 03/05 1629 1616 Benzonatate 100 MG TID 03/06 1107 AC 03/06 PO 1258 Clonazepam 0.5 MG Q6P PRN 03/05 1900 AC 03/06 PO 03/12 185 0949 Enoxaparin Sodium 40 MG DAILY 03/05 1840 AC 03/06 SC 0950 Furosemide 20 MG DAILY 03/06 1000 AC 03/06 IV 0941 Gabapentin 300 MG Q6 03/05 2359 AC 03/06 PO 1258 Insulin Aspart 0 TIDAC 03/06 0800 AC 03/06 SC 1258 Ipratropium [place] 2.5 ML ONCE ONE 03/05 1630 DC INH 03/05 1631 Ketorolac 30 MG ONCE ONE 03/05 1415 DC 03/05 Tromethamine IV 03/05 1416 1415 Ketorolac 0 .STK-MED ONE 03/05 1412 MN Tromethamine .ROUTE Lisinopril 20 MG DAILY 03/06 1000 AC 03/06 PO 0934 Methylprednisolone 40 MG Q8 03/05 2200 AC 03/06 IV 1258 Oxycodone HCl 5 MG Q8P PRN 03/06 1115 AC 03/06 PO 1257 Patient Medication 1 UNIT ONE NR 03/05 191 [facility] ED 03/05 1930 Patient Medication 1 UNIT ONE NR 03/05 1915 [facility] ED 03/05 1930 Patient Medication 1 UNIT ONE NR 03/05 1915 [facility] ED 03/05 1930 Patient Medication 1 UNIT ONE NR 03/05 191 [facility] ED 03/05 193 Patient Medication 1 UNIT ONE NR 03/05 1900 [facility] ED 03/05 1930 Pravastatin Sodium 40 MG 1700 03/06 1700 AC PO Quetiapine Fumarate 300 MG AT BEDTIME 03/05 2200 AC 03/05 PO 2201 Quetiapine Fumarate 100 MG BID PRN 03/05 1900 AC 03/06 PO 0949 Tamsulosin HCl 0.4 MG DAILY 03/06 1000 AC 03/06 PO 0934 Last 24 Hrs of Lab/Davide Results Last 24 Hrs of Labs/Mics: Laboratory Tests 03/05/161952: Urine Color YEL, Urine Clarity HAZY H, Urine pH 6.0, Ur Specific [place] 1.025, Urine Protein 30 H, Urine Ketones TRACE H, Urine Nitrite NEG, Urine Bilirubin NEG, Urine Urobilinogen 0.2, Ur Leukocyte Esterase NEG, Ur Microscopic SEDIMENT EXAMINED, Urine RBC >75 H, Urine WBC RARE, Ur Epithelial Cells RARE, Urine Hemoglobin LARGE H, Urine Glucose >=1000 H Assessment/Plan Assessment: 50-year-old gentleman with past medical history of COPD, hypertension, current smoker, hyperlipidemia, bipolar disorder presents to the ED with complaints of worsening shortness of breath and cough and tightness current admission for Copd exacerbation. Chest x-ray or was unremarkable. Continues to require supplemental oxygen which is new for him. Plan COPD exacerbation Continue IV steroids, TRC/nebs Continue Augmentin Patient will be ambulated to see if he requires oxygen will need to be discharged in the morning as he needs to attend his father's Spoke to case management regarding home oxygen. O2 sats needs to be measured tomorrow Hypertension Continue lisinopril, statin Mood disorder Continue Seroquel, Abilify, clonazepam, gabapentin Diabetes Monitor fingersticks Continue Levemir and insulin sliding scale Diabetic diet Patient is full code DVT prophylaxis with Lovenox Problem List: 1. COPD exacerbation 2. Mood disorder Pain Ratin Pain Location: na Pain Goal: Pain 4 or less Pain Plan: current regimen Tomorrow's Labs & Rationales: cbc to monitor leukocytosis
--- NOTE | 2016-03-06 13:21 | PN- Att Addend ---
Attending Addendum Attending Brief Note Patient seen and examined in the emergency room. Plan of care discussed with the medical team and the patient. Available lab work and radiology test reports were reviewed. Patient's father had . Patient is very upset about it and was crying. He initially wanted to leave the hospital however later on he decided to stay. Vital Signs Date Time Temp Pulse Resp B/P Pulse O2 O2 Flow FiO2 Ox Delivery Rate 03/06 0934 107 130/80 03/06 0934 107 130/80 03/06 0616 97.4 110 22 116/80 96 Nasal 2.0L Cannula 03/06 0207 97 Nasal 2.0L Cannula 03/05 1943 98.2 112 20 142/69 94 Room Air Room Air 03/05 1630 94 Nasal 2.0L Cannula 03/05 1611 97.5 104 20 162/91 96 Nasal 2.0L Cannula Intake & Output 03/06 1600 03/06 0800 03/06 0000 Intake Total 140 Output Total 1900 1450 550 Balance -1900 -1310 -550 Intake, IV 20 Intake, Oral 120 Output, Urine 1900 1450 550 Patient 312 lb Weight Exam: General: Patient is a obese male who is awake alert oriented with mild respiratory distress. He appears anxious and is visibly upset and was noted to be crying CVS: S1 plus S2 without any murmur or gallops Chest: Few scattered crepitation with expiratory prolongation and expiratory wheeze. There is no respiratory distress. Abdomen: Soft nontender, bowel sound present, no guarding or rebound DIVERSIONAL THERAPIST'S ASSISTANT: Awake alert oriented without any focal neuro deficit and follows command appropriately Extremities: Bilateral 2+ leg edema; no clubbing or cyanosis noted Laboratory Tests 03/05 03/05 195 1334 Chemistry Sodium (137 - 145 mmol/L) 138 Potassium (3.5 - 5.1 mmol/L) 4.4 Chloride (98 - 107 mmol/L) 102 Carbon Dioxide (22 - 30 mmol/L) 20 L Anion Gap (5 - 16) 17 H BUN (9 - 20 mg/dL) 21 H Creatinine (0.7 - 1.2 mg/dL) 0.9 Estimated GFR (>60 ml/min) > 60 BUN/Creatinine Ratio (7 - 25 %) 23.3 Glucose (65 - 99 mg/dL) 269 H Calcium (8.4 - 10.2 mg/dL) 9.8 Total Bilirubin (0.2 - 1.3 mg/dL) 0.4 AST (17 - 59 U/L) 16 L ALT (21 - 72 U/L) 25 Alkaline Phosphatase (< 127 U/L) 88 Troponin I (<0.11 ng/ml) < 0.01 Yjy-[id number]-Fowbqbrurya Pept (<125 pg/mL) 159 H Total Protein (6.3 - 8.2 g/dL) 7.1 Albumin (3.5 - 5.0 g/dL) 4.0 Globulin (1.9 - 4.2 gm/dL) 3.1 Albumin/Globulin Ratio (1.1 - 2.2 %) 1.3 TSH (0.270 - 4.200 uIU/mL) 0.105 L Free T4 (0.64 - 1.79 ng/dL) 0.85 Coagulation PT (9.4 - 12.5 SEC) 11.1 INR (0.90 - 1.17) 1.06 APTT (25 - 37 SEC) 29 D-Dimer (70 - 232 ng/ml) < 200 Hematology CBC w Diff MAN DIFF ORDERED WBC (4.8 - 10.8 /CUMM) 18.2 H RBC (4.70 - 6.10 /CUMM) 5.04 Hgb (14.0 - 18.0 G/DL) 15.4 Hct (42 - 52 %) 45.9 MCV (80.0 - 94.0 FL) 91.2 MCH (27.0 - 31.0 PG) 30.6 RDW (11.5 - 14.5 %) 14.1 Plt Count (130 - 400 /CUMM) 228 MPV (7.4 - 10.4 FL) 8.6 Gran % (42.2 - 75.2 %) 79.5 H Lymphocytes % (20.5 - 51.1 %) 13.1 L Monocytes % (1.7 - 9.3 %) 7.0 Eosinophils % (0 - 5 %) 0.1 Basophils % (0.0 - 2.0 %) 0.3 Absolute Granulocytes (1.4 - 6.5 /CUMM) 14.5 H Absolute Lymphocytes (1.2 - 3.4 /CUMM) 2.4 Absolute Monocytes (0.10 - 0.60 /CUMM) 1.3 H Absolute Eosinophils (0.0 - 0.7 /CUMM) 0 Absolute Basophils (0.0 - 0.2 /CUMM) 0.1 Platelet Estimate (ADEQUATE) ADEQUATE Normocytic RBCs VERIFIED Normochromic RBCs VERIFIED PUBS MCHC (33.0 - 37.0 G/DL) 33.6 Urines Urine Color (YEL,AMB,STR) YEL Urine Clarity (CLEAR) HAZY H Urine pH (5.0 - 8.0) 6.0 Ur Specific [place] (1.001 - 1.035) 1.025 Urine Protein (NEG,<30 MG/DL) 30 H Urine Ketones (NEG) TRACE H Urine Nitrite (NEG) NEG Urine Bilirubin (NEG) NEG Urine Urobilinogen (0.1 - 1.0 EU/dl) 0.2 Ur Leukocyte Esterase (NEG) NEG Ur Microscopic SEDIMENT EXAMINED Urine RBC (0 - 5 /HPF) >75 H Urine WBC (0 - 2 /HPF) RARE Ur Epithelial Cells (NONE,FEW) RARE Urine Hemoglobin (NEG) LARGE H Urine Glucose (N MG/DL) >=1000 H Chest x-ray done 03/04 was unremarkable. Assessment and problem list * Shortness of breath likely COPD exacerbation * Hyperglycemia and diabetes * Elevated WBC count likely due to recent steroid use * Obesity * Anxiety Plan * Continue Solu-Medrol 40 mg IV every 12 h * Continue oral Augmentin 875 mg by mouth twice a day. * Continue Abilify and Seroquel * Continue Lasix and lisinopril * Can LAIS Yadav * Continue insulin sliding scale
--- NOTE | 2016-03-06 15:01 | Event Note ---
Event Note Event Note: Around 3 PM nurse paged stating that patient is sweaty and very anxious and complaining of some chest tightness. Pt was found to be tachycardic other vitals were within normal range, a stat EKG was obtained which showed some nonspecific T wave changes, troponins were negative, have ordered CBC, BEP for any electrolyte abnormality. Update- he was later found to be comfortable, he was lying in bed in no acute distress, primary team will be informed about this event and need for any cardiology consultation.
[2016-03-06 15:03] VITALS: BP 136/80
[2016-03-06 15:16] VITALS: BP 122/70
--- NOTE | 2016-03-06 17:10 | NUR ---
PT HAS BEEN SLIGHTY TACHYCARDIC RANGING IN 105-108'S. PT IS HERE FOR COPD EXACERBATION. ON 2L NC. NOT PTS BASELINE. MD WANTED AMBULATING SATS ON ROOM AIR. O2 REMAINED 94% BUT PT BEGAN TO FEEL DIZZY, LIGHTHEADED AND WEAK. SAT PT DOWN AND PLACED 02 FOR COMFORT. RESPIRATORY PRESENT AT THIS TIME. CALLED MD. PT RECIEVED BREATHING TREATMENT. AFTER BREATHING TREATMENT PT COMPLAINED OF NAUSEA, DIZZINESS STILL AND WEAKNESS LIKE HE WAS FALLING. PAGED SAMEREEN TO ROOM. CHECKED BS WAS 200. VITALS SIGNS 236/80 PULSE TACHY 111-130. TROPONIN ORDERED. EKG DONE. NO FURTHER ORDERS. SPOKE TO FOLLOWING NURSE AND MD CHRISTIE ABOUT PT AND CONTINUING NAUSEA AND TACHYCARDIA.
--- NOTE | 2016-03-06 18:16 | NUR ---
PT CALLED RN INTO ROOM. PT C/O CHEST TIGHTNESS 09/05 ACCOMPANIED WITH 09/05 HEADACHE. PT STATES " I FEEL THAT MY HEART IS GOING TO EXPLODE" VITALS FOLLOWS 140/68 BP 98.1 TEMP 112 HR 96% 2L RR 14. PT FACE/NECK RED. JOB COMPOSITOR ISIDRO AWARE. CARDIAC WORKOUT DONE 2 HOURS PRIOR PER JOB COMPOSITOR AND WILL BE SEEING PT. WILL MONITOR
[2016-03-06 19:04] LABS: ABSOLUTE BASOPHIL COUNT 0 /CUMM (0.0-0.2); ABSOLUTE EOSINOPHIL COUNT 0 /CUMM (0.0-0.7); ABSOLUTE GRANULOCYTE CT 17.1 /CUMM (1.4-6.5); ABSOLUTE LYMPH COUNT 1.9 /CUMM (1.2-3.4); ABSOLUTE MONOCYTE COUNT 1.1 /CUMM (0.10-0.60); BASOPHIL % 0.2 % (0.0-2.0); EOSINOPHIL % 0.1 % (0-5); HEMATOCRIT 45.3 % (42-52); MEAN CORPUSCULAR HGB 30.5 PG (27.0-31.0); MEAN CORPUSCULAR HGB CONC 33.4 G/DL (33.0-37.0); MEAN CORPUSCULAR VOLUME 91.3 FL (80.0-94.0); MEAN PLATELET VOLUME 9.1 FL (7.4-10.4); PLATELET COUNT 239 /CUMM (130-400); RBC DISTRIBUTION WIDTH 14.1 % (11.5-14.5); RED BLOOD CELL CT 4.96 /CUMM (4.70-6.10)
[2016-03-06 19:23] LABS: WHITE BLOOD CELL COUNT 20.1 /CUMM (4.8-10.8)
[2016-03-06 22:36] VITALS: BP 108/80
[2016-03-07 06:58] VITALS: BP 110/86
[2016-03-07 09:51] LABS: ABSOLUTE BASOPHIL COUNT 0.1 /CUMM (0.0-0.2); ABSOLUTE EOSINOPHIL COUNT 0 /CUMM (0.0-0.7); ABSOLUTE LYMPH COUNT 1.9 /CUMM (1.2-3.4); ABSOLUTE MONOCYTE COUNT 0.9 /CUMM (0.10-0.60); BASOPHIL % 0.5 % (0.0-2.0); EOSINOPHIL % 0.1 % (0-5); HEMATOCRIT 44.4 % (42-52); MEAN CORPUSCULAR HGB 30.6 PG (27.0-31.0); MEAN CORPUSCULAR HGB CONC 33.5 G/DL (33.0-37.0); MEAN CORPUSCULAR VOLUME 91.2 FL (80.0-94.0); RBC DISTRIBUTION WIDTH 14.3 % (11.5-14.5); RED BLOOD CELL CT 4.87 /CUMM (4.70-6.10); WHITE BLOOD CELL COUNT 17.8 /CUMM (4.8-10.8)
[2016-03-07 10:15] LABS: ABSOLUTE GRANULOCYTE CT 14.8 /CUMM (1.4-6.5)
[2016-03-07 10:27] LABS: GRANULOCYTE % 83.5 % (42.2-75.2); PLATELET COUNT 249 /CUMM (130-400)
--- NOTE | 2016-03-07 11:15 | NUR ---
PT C/O HAVING DIFFICULTY TAKING A DEEP BREATH, STATES HE HAS SEVER CHEST/RIB/ABDOMINAL PAIN FROM COUGHING, EVEN AFTER OXYCODONE THAT WAS GIVEN AT 0945. PT STATES HE FEELS HE NEEDS TO COUGH UP SPUTUM BUT IS UNABLE TO DUE TO HIS PAIN. DR FAUSTIN NOTIFIED AND IN TO SEE PATIENT. NEW ORDERS OBTAINED. WILL CONTINUE TO MONITOR.
--- NOTE | 2016-03-07 11:18 | PN- Housestaff ---
TIFFANIEDANGELOELPIDIO DIALLO 03/07/16 1118: Subjective Follow-up For: COPD exacerbation Urinary retention Tachycardia Subjective: Seen and examined patient states that he's not feeling well, continues to feel palpitations. And sure as to the cause states that this is an issue that is been going on since the past few months and he has been dealing with it with his primary care physician. Denies shortness of breath, fever, chills, abdominal pain. Reports inability to void and feels better when a Yadav is placed. Has some dysuria when he straight cath. Review of Systems Constitutional: Denies: chills, diaphoresis, fever, malaise, weakness, unexplained weight loss. Cardiovascular: Reports: palpitations. Denies: chest pain, edema, orthopena, peripheral edema, syncope. Respiratory: Reports: cough, short of breath. Denies: hemoptysis, orthopnea, sputum production, stridor, wheezing. Genitourinary: Reports: see HPI. Objective Last 24 Hrs of Vital Signs/I&O Vital Signs Date Time Temp Pulse Resp B/P Pulse O2 O2 Flow FiO2 Ox Delivery Rate 03/07 1425 97.9 105 20 142/94 96 03/07 1231 111 162/104 03/07 0945 102 110/80 03/07 0919 97 Room Air Room Air 03/07 0658 97.7 101 20 110/86 95 03/07 0547 97.7 101 20 110/86 03/07 0140 108 93 03/07 0049 118 98 03/07 0041 114 98 03/07 0000 93 Room Air 03/06 2236 97.7 114 20 108/80 96 03/06 2000 96 Nasal 2.0L Cannula 03/06 1600 97 Nasal 2.0L Cannula 03/06 1516 98.4 122 20 122/70 96 Nasal 2.0L Cannula Intake & Output 03/07 1600 03/07 0800 03/07 0000 Intake Total 500 400 Output Total 2600 450 Balance -2100 -50 Intake, IV 0 Intake, Oral 500 400 Number 0 Bowel Movements Output, Urine 2600 450 Physical Exam General Appearance: Alert, Oriented X3, Cooperative, Mild Distress Cardiovascular: Normal S1, Normal S2 Lungs: Normal Air Movement Abdomen: Normal Bowel Sounds, Soft, distended Assessment/Plan Assessment: 50-year-old gentleman with past medical history of COPD, hypertension, current smoker, hyperlipidemia, bipolar disorder presents to the ED with complaints of worsening shortness of breath and cough and tightness current admission for Copd exacerbation. Chest x-ray or was unremarkable. Plan COPD exacerbation Continue IV steroids, TRC/nebs Continue Augmentin saturating on room air Low Well's score, will get d-dimer to rule out PE Tachycardia Will start Cardizem 40 by mouth every 6hrs Urinary Retention Patient discontinue Yadav and Ultrasound of kidney bladder pending urology consult placed Hypertension Continue lisinopril, statin Mood disorder Continue Seroquel, Abilify, clonazepam, gabapentin Diabetes Monitor fingersticks Continue Levemir and insulin sliding scale Diabetic diet Patient is full code DVT prophylaxis with Lovenox Problem List: 1. COPD exacerbation 2. Urinary retention 3. Tachycardia Pain Ratin Pain Location: na Pain Goal: Pain 4 or less Pain Plan: current regimen Tomorrow's Labs & Rationales: none required ROBERT QUEVEDO MD 03/07/16 1248: Attending MD Review Statement Attending Statement Attending MD Statement: examined this patient, discuss w/resident/PA/STONEWORK SUPERVISOR, agreed w/resident/PA/STONEWORK SUPERVISOR, reviewed EMR data (avail) Attending Assessment/Plan: 50M PMH COPD, hypertension, current smoker, hyperlipidemia, bipolar disorder admitted with shortness of breath in the setting of COPD exacerbation. Patient also with acute urinary retention with Yadav placed. Patient was breathing comfortably on CPAP this morning, removed it and described chest pressure and shortness of breath that he says is consistent with anxiety. EKG done at bedside shows NSR with no acute changes. Troponin sent and pending. Chest pain is reproducible and less likely to be cardiac in origin. D-dimer sent was negative. 1. Acute exacerbation of COPD 2. Acute urinary retention 3. Anxiety 4. Chest pain Plan - Continue Solumedrol, may taper to 12h tomorrow - Continue Augmentin - Continue Flomax and Yadav catheter, start Finasteride - Urology consult - TRC/nebulizer treatments - Continue home medications - Follow cultures - CPAP PRN - DVT PPx
[2016-03-07 14:25] VITALS: BP 142/94
--- NOTE | 2016-03-07 16:07 | NUR ---
1600 PATIENT OFF FLOOR TO CAT SCAN AND ULTRASOUND
--- NOTE | 2016-03-07 17:28 | NUR ---
PATIENT BACK ON FLOOR
--- NOTE | 2016-03-07 21:40 | ULTRASOUND REPORT ---
EXAMINATION: US RETROPERITONEAL COMPLETE (RENAL) CLINICAL INFORMATION: Urinary retention. Assess for BPH. COMPARISON: None. TECHNIQUE: Real-time imaging of the kidneys and bladder. FINDINGS: RIGHT KIDNEY: 12.7 x 7.0 x 5.8 cm (SAG x AP x TRV). The kidney is normal in size, contour, and echogenicity. Renal cortical thickness is normal. No calculi or focal parenchymal lesions. No hydronephrosis. LEFT KIDNEY: 15.5 x 5.9 x 5.2 cm (SAG x AP x TRV). The kidney is normal in size, contour, and echogenicity. Renal cortical thickness is normal. No calculi or focal parenchymal lesions. No hydronephrosis. BLADDER: Well-distended and normal. Bilateral ureteral jets were not demonstrated. Prevoid bladder volume is 535 mL. No prostatomegaly is demonstrated; the imaging was limited due to patient body habitus. IMPRESSION: 1. No hydronephrosis or hydroureter are demonstrated. 2. The urinary bladder is distended; the Yadav catheter was clamped. 3. No prostatomegaly is demonstrated.
[2016-03-07 22:15] VITALS: BP 130/80
--- NOTE | 2016-03-08 00:42 | NUR ---
ALERT AND ORIENTED X 3. VITAL SIGNS STABLE. ON ROOM AIR. PAIN IN ABDOMEN WHEN COUGHING. MEDICATION GIVEN FOR PAIN. LIM CARE GIVEN. PATIENT RESTING COMFORTABLY. WILL CONTINUE TO MONITOR
[2016-03-08 06:58] VITALS: BP 130/80
[2016-03-08] MEDS ORDERED: CARDIZEM30 M1 PO (07:24)
[2016-03-08] MEDS ORDERED: AMOX-CLAV 875-1 EACH PO (07:24)
--- NOTE | 2016-03-08 07:29 | PN- Housestaff ---
ELPIDIO RIOS 03/08/16 0729: Subjective Follow-up For: COPD exacerbation Urinary retention Tachycardia Subjective: And examined patient, feels much improved from yesterday. States that his heart rate is more controlled. And ambulated yesterday without any dramatic rise in his heart rate. Also reports that his breathing is improved Review of Systems Constitutional: Denies: chills, diaphoresis, fever, malaise, weakness, unexplained weight loss. Cardiovascular: Denies: chest pain, edema, orthopena, palpitations, peripheral edema, syncope. Respiratory: Denies: cough, hemoptysis, orthopnea, short of breath, sputum production, stridor, wheezing. Objective Last 24 Hrs of Vital Signs/I&O Vital Signs Date Time Temp Pulse Resp B/P Pulse O2 O2 Flow FiO2 Ox Delivery Rate 03/08 0811 96 Room Air 03/08 0658 97.5 96 20 130/80 96 CPAP 03/08 0642 97.5 96 20 130/80 03/08 0059 91 93 03/08 0030 98.1 88 20 136/74 03/07 2215 97.4 96 20 130/80 96 Room Air 03/07 2213 82 93 03/07 2000 91 Room Air 03/07 1801 98 140/84 03/07 1600 Room Air 03/07 1425 97.9 105 20 142/94 96 03/07 1231 111 162/104 03/07 0945 102 110/80 03/07 0919 97 Room Air Room Air Intake & Output 03/08 1600 03/08 0800 03/08 0000 Intake Total 900 Output Total 1800 1900 Balance -1800 -1000 Intake, Oral 900 Output, Urine 1800 1900 Physical Exam General Appearance: Alert, Oriented X3, Cooperative, No Acute Distress Cardiovascular: Normal S1, Normal S2 Lungs: Clear to Auscultation, Normal Air Movement Abdomen: DISTENDED Current Medications: Current Medications Sig/Emely Start time Last Medication Dose Route Stop Time Status Admin Albuterol Sulfate 3 ML TID 03/06 1600 AC 03/08 INH 0809 Amoxicillin/ 875 MG Q12 03/05 2200 AC 03/07 Clavulanate Potassium PO 2235 Aripiprazole 15 MG DAILY 03/06 1000 AC 03/07 PO 0945 Benzonatate 100 MG TID 03/07 0815 DC 03/07 PO 0816 Benzonatate 100 MG TID 03/06 1107 AC 03/07 PO 2236 Clonazepam 0.5 MG Q6P PRN 03/05 1900 AC 03/08 PO 03/12 1859 0445 Diltiazem HCl 30 MG Q6 03/07 1200 AC 03/08 PO 0642 Enoxaparin Sodium 40 MG DAILY 03/05 1840 AC 03/07 SC 0944 Furosemide 20 MG DAILY 03/06 1000 AC 03/07 IV 0545 Gabapentin 300 MG Q6 03/05 2359 AC 03/08 PO 0639 Guaifenesin 600 MG Q12 03/07 1124 AC 03/07 PO 2235 Insulin Aspart 0 TIDAC 03/06 0800 AC 03/08 SC 0839 Ipratropium [place] 2.5 ML TID 03/06 1600 AC 03/08 INH 0809 Lisinopril 20 MG DAILY 03/06 1000 DC 03/07 PO 0945 Methylprednisolone 40 MG Q8 03/05 2200 AC 03/08 IV 0639 Nicotine 14 MG DAILY 03/07 1000 AC 03/07 TOP 0943 Oxycodone HCl 5 MG Q8P PRN 03/06 1115 DC 03/07 PO 0946 Oxycodone/ 1 TAB Q6P PRN 03/07 1130 AC 03/08 Acetaminophen PO 0445 Patient Medication 1 ED .STK-MED ONE 03/07 1357 DC Teaching ED 03/07 1358 Polyethylene Glycol 17 GM DAILY PRN 03/07 0830 AC 03/07 PO 0943 Pravastatin Sodium 40 MG 1700 03/06 1700 AC 03/07 PO 1755 Quetiapine Fumarate 300 MG AT BEDTIME 03/05 2200 AC 03/07 PO 2235 Quetiapine Fumarate 100 MG BID PRN 03/05 1900 AC 03/08 PO 0445 Senna/Docusate Sodium 2 TAB DAILY 03/07 0830 AC 03/07 PO 0944 Tamsulosin HCl 0.4 MG DAILY 03/06 1000 AC 03/07 PO 0547 Last 24 Hrs of Lab/Davide Results Last 24 Hrs of Labs/Mics: Laboratory Tests 03/07/16 1157: Troponin I < 0.01 03/07/16 1016: D-Dimer < 200 Assessment/Plan Assessment: 50-year-old gentleman with past medical history of COPD, hypertension, current smoker, hyperlipidemia, bipolar disorder presents to the ED with complaints of worsening shortness of breath and cough and tightness current admission for Copd exacerbation. Chest x-ray or was unremarkable. Currently much improved in terms of his breathing and heart rate Plan COPD exacerbation Will discharge patient on prednisone taper Continue Augmentin for 3 more days saturating on room air D-dimer negative Tachycardia on cardiazem 30q6hr, will him on 120 Cardizem daily will need to follow-up with primary care physician and eventually cardiology referral for workup for possible Holter monitoring Urinary Retention Will be discharged on Yadav catheter Renal Ultrasound ruled out hydronephrosis or hydroureter and distended urinary bladder and no BPH demonstrated Patient will follow up with urology as outpatient Hypertension Continue lisinopril, statin Mood disorder Continue Seroquel, Abilify, clonazepam, gabapentin Diabetes Monitor fingersticks Continue Levemir and insulin sliding scale Diabetic diet Patient is full code DVT prophylaxis with Lovenox Problem List: 1. COPD exacerbation 2. Urinary retention 3. Mood disorder 4. Tachycardia Pain Ratin Pain Location: Not applicable Pain Goal: Pain 4 or less Pain Plan: Current regimen Tomorrow's Labs & Rationales: None required ROBERT QUEVEDO MD 03/08/16 1432: Attending MD Review Statement Attending Statement Attending MD Statement: examined this patient, discuss w/resident/PA/FORM BUILDER, agreed w/resident/PA/FORM BUILDER, reviewed EMR data (avail) Attending Assessment/Plan: 50M PMH COPD, hypertension, current smoker, hyperlipidemia, bipolar disorder admitted with shortness of breath in the setting of COPD exacerbation. Patient also with acute urinary retention with Yadav placed. Today patient feels much better. He is breathing comfortably and is able to walk with improved breathing. He also reports an improvement in his tachycardia and palpitations since starting Cardizem. He also informed me that he noticed mold in his bathroom and on his shower curtain recently, which may be contributing to his dyspnea. I advised him to replace his shower curtain, clean his bathroom with an anti-mold agent, and call a lead supply worker. He and his future son -in-law agreed. 1. Acute exacerbation of COPD 2. Acute urinary retention 3. Anxiety 4. Chest pain Plan - Continue Solumedrol q12h, switch to PO tomorrow - Continue Augmentin - Continue Flomax and Yadav catheter, start Finasteride - Urology follow up as outpatient - TRC/nebulizer treatments - Continue home medications - Follow cultures - CPAP PRN - DVT PPx - Anticipated discharge tomorrow
--- NOTE | 2016-03-08 08:02 | CT SCAN REPORT ---
EXAMINATION: CT CHEST WITHOUT CONTRAST CLINICAL INFORMATION: Worsening shortness of breath. COMPARISON: Chest radiograph 03/04/2016 TECHNIQUE: Multidetector volumetric CT imaging of the chest was done. Axial MIP volume rendering provided. Sagittal and coronal reformatted images were obtained. DLP: 884.74 mGy-cm. FINDINGS: FILTRATION PLANT MECHANIC: Unremarkable LUNGS: Some tiny lung nodules are seen some of which are calcified 4 mm in size. A sample of these are saved as be images as part of the patient's study. MEDIASTINUM: The mediastinum is normal. PLEURA: There is no pleural effusion. No pleural mass or thickening. AXILLA: No lymphadenopathy. UPPER ABDOMEN: Unremarkable. OSSEOUS STRUCTURES: Unremarkable. IMPRESSION: Incidentally noted tiny pulmonary densities. None of these are larger than 4 mm in size. Some are most certainly calcified granulomas. If this is patient is low risk, no further follow-up is probably necessary. If this patient is high risk, for example a smoker, a follow-up study is recommended in no sooner than 1 year's time. Various management parameters for solitary pulmonary nodules are in the literature. According to the Fleischner Society, recommendations for pulmonary nodules are as follows: Nodule size < or = to 4 mm in LOW RISK PATIENTS: No follow up needed. Nodule size < or = to 4 mm in HIGH RISK PATIENTS: Follow up CT at 12 months; if unchanged, no further follow up.
[2016-03-08] MEDS ORDERED: CARDIZEM120 M1 PO (10:57)
--- NOTE | 2016-03-08 11:11 | Discharge Summary ---
Visit Information Visit Dates Admission Date: 03/05/16 Discharge Date: 03/09/16 Hospital Course Course Attending Physician: ROBERT QUEVEDO MD Primary Care Physician: BEBETO ARMENDARIZ MD Hospital Course: 50-year-old male with past medical history of COPD, history of intubation in the past, hypertension, current smoker, hyperlipidemia, bipolar disorder presented with complaints of worsening shortness of breath and cough and tightness of 4 days duration. Cough was productive and greenish in color. He also reported chest pain due to consistent coughing. Reported experiencing urinary retention recently. Denied fever, chills, sick contacts. He is up-to-date with his influenza and pneumonia shots. Vitals on admission: Temperature 98.9, heart rate 126, respiratory 24, blood pressure 135/81, 97% on 2.5 L nasal cannula Labs pertinent for WBC of 18.2, glucose 269, proBNP 159, TSH 0.105, free T4 0.85 Yadav drained 1 L in ED He was admitted to the general medicine floor and the following issues were addressed: COPD exacerbation He received total respiratory care with nebulization, was started on IV steroids which was later tapered and upon discharge was given a prednisone taper. Course of azithromycin was given. Supplemental oxygen was tapered off. Had a low well' s score and D-dimer was negative. He used his CPAP when necessary. Was given referral to pulmonology for outpatient. CT chest showed : tiny lung nodules some of which are calcified 4 mm in size Tachycardia On admission patient's heart is 126 and probable course of his hospitalization he complained of palpitations which worsened on exertion. By mouth Cardiazem was started and patient found that this was very helpful in controlling his heart rate. Will be discharge on 120mg Cardizem daily. Was advised to follow-up with primary care physician and eventual cardiology referral for workup for possible Holter monitoring. EKG showed sinus tachycardia and troponins were negative. Urinary Retention Continued to be unable to void on his own urology was consulted. Renal Ultrasound ruled out hydronephrosis, hydroureter and distended urinary bladder and no BPH was demonstrated. Will be discharged on Yadav catheter. Patient is to follow up with urology as outpatient. Hypertension Continued lisinopril and Statin Mood disorder Continued Seroquel, Abilify, Clonazepam and Gabapentin. Diabetes Kept on Levemir and insulin sliding scale with diabetic diet. Smoking cessation Patient indicated motivation to quit. Smoking cessation counselling. He was agreeable to try the nicotine patch. DVT prophylaxis with Lovenox Complications: tachycardia urinary retention Allergies: Coded Allergies: Iodinated Contrast Media - Oral and (IODINATED CONTRAST MEDIA - IV DYE) ( ANAPHYLAXIS 03/04/16) Significant Procedures: SERVICE DATE: 03/07/16- EXAM TYPE: CAT - CT CHEST WO IV CONTRAST FINDINGS: MOLD SHAKER: Unremarkable LUNGS: Some tiny lung nodules are seen some of which are calcified 4 mm in size. A sample of these are saved as be images as part of the patient's study. MEDIASTINUM: The mediastinum is normal. PLEURA: There is no pleural effusion. No pleural mass or thickening. AXILLA: No lymphadenopathy. UPPER ABDOMEN: Unremarkable. OSSEOUS STRUCTURES: Unremarkable. IMPRESSION: Incidentally noted tiny pulmonary densities. None of these are larger than 4 mm in size. Some are most certainly calcified granulomas. If this is patient is low risk, no further follow-up is probably necessary. If this patient is high risk, for example a smoker, a follow-up study is recommended in no sooner than 1 year's time. Various management parameters for solitary pulmonary nodules are in the literature. According to the Fleischner Society, recommendations for pulmonary nodules are as follows: Nodule size < or = to 4 mm in LOW RISK PATIENTS: No follow up needed. Nodule size < or = to 4 mm in HIGH RISK PATIENTS: Follow up CT at 12 months; if unchanged, no further follow up. SERVICE DATE: 03/07/16- EXAM TYPE: US - US-RENAL/KIDNEY FINDINGS: RIGHT KIDNEY: 12.7 x 7.0 x 5.8 cm (SAG x AP x TRV). The kidney is normal in size, contour, and echogenicity. Renal cortical thickness is normal. No calculi or focal parenchymal lesions. No hydronephrosis. LEFT KIDNEY: 15.5 x 5.9 x 5.2 cm (SAG x AP x TRV). The kidney is normal in size, contour, and echogenicity. Renal cortical thickness is normal. No calculi or focal parenchymal lesions. No hydronephrosis. BLADDER: Well-distended and normal. Bilateral ureteral jets were not demonstrated. Prevoid bladder volume is 535 mL. No prostatomegaly is demonstrated; the imaging was limited due to patient body habitus. IMPRESSION: 1. No hydronephrosis or hydroureter are demonstrated. 2. The urinary bladder is distended; the Yadav catheter was clamped. 3. No prostatomegaly is demonstrated. Disposition Summary Disposition Principal Diagnosis: COPD Exacerbation Additional Diagnosis: Tachycardia Diabetes Depression Anxiety Smoking Hypertension Discharge Disposition: home or self care Discharge Instructions General Discharge Information Code Status: Full Code Patient's Diet: Diabetic diet Patient's Activity: As tolerated Follow-Up Instructions/Appts: 1. Follow up with PCP in a week 2. Follow up with Pulmnology 3. You will be discharged on a Yadav please follow-up with your urologist within 1 week of discharge Medications at Discharge Discharge Medications: Stop taking the following medications: Lisinopril (Lisinopril) 20 MG TABLET ORAL DAILY Qty = 30 Prednisone (Prednisone) 50 MG TABLET ORAL DAILY Qty = 4 Continue taking these medications: Aripiprazole (Abilify) 15 MG TABLET 1 Tablet ORAL DAILY Comments: Last Taken: 03/09/16 Time: 10AM Quetiapine Fumarate (Seroquel XR) 300 MG TAB.ER.24H 1 Tablet ORAL TAKE AT BEDTIME Qty = 30 Comments: Last Taken: 03/08/16 Time: 8PM Quetiapine Fumarate (Seroquel) 50 MG TABLET 1 Tablet ORAL TWICE DAILY as needed for AGITATION Qty = 60 Comments: Last Taken: 03/08/16 Time: 4PM Pravastatin Sodium (Pravastatin Sodium) 40 MG TABLET 1 Tablet ORAL Every night Qty = 90 Comments: Last Taken: 03/08/16 Time: 5PM Tamsulosin HCl (Tamsulosin HCl) 0.4 MG CAP.ER.24H 1 Capsule ORAL DAILY Qty = 90 Comments: Last Taken: 03/09/16 Time: 10AM Furosemide (Furosemide) 20 MG TABLET 1 Tablet ORAL DAILY Qty = 30 Comments: Last Taken: NOT GIVEN IN HOSPITAL Time: Clonazepam (Clonazepam) 0.5 MG TABLET 1 Tablet ORAL 4 TIMES A DAY as needed for ANXIETY Qty = 120 Comments: Last Taken: 03/09/16 Time: 6AM Gabapentin (Gabapentin) 300 MG CAPSULE 1 Capsule ORAL 4 TIMES A DAY Comments: Last Taken: 03/09/16 Time: 6AM Albuterol Sulfate (Ventolin Hfa) 90 MCG HFA.AER.AD 2 Puff Inhale through mouth Q4H as needed for COPD Qty = 18 Comments: Last Taken: NOT GIVEN IN HOSPITAL Time: Potassium Chloride (Potassium Chloride) 20 MEQ TABLET.ER 1 Tablet ORAL TWICE DAILY Qty = 60 Comments: Last Taken: NOT GIVEN IN HOSPITAL Time: Albuterol Sulfate (Ventolin Hfa) 90 MCG HFA.AER.AD 2 Puff Inhale through mouth EVERY 4-6 HOURS NEEDED as needed for ASTHMA/ COPD Qty = 1 Instructions: INCLUDE WITH SPACER Comments: Last Taken: NOT GIVEN IN HOSPITAL Time: Start taking the following new medications: Prednisone (Prednisone) 10 MG TABLET 1 Tablet ORAL DAILY Qty = 21 No Refills Instructions: On Take 03/09-03/11 6 TAB 03/12-03/14 5 TAB 03/15-03/17 4 TAB 03/18-03/20 3 TAB 03/21-03/23 2 TAB 03/24-03/25 1TAB Then Stop Comments: Last Taken: 03/09/16 Time: 10AM Amoxicillin/Clavulanate Potass (Amox-Clav 875-125 MG Tablet) 875 MG-125 MG TABLET 1 Tablet ORAL EVERY 12 HOURS Days = 2 No Refills Comments: Last Taken: 03/09/16 Time: 10AM Diltiazem HCl (Cardizem) 120 MG TABLET 1 Tablet ORAL DAILY Days = 30 No Refills Comments: Last Taken: 03/09/16 Time: 6AM Nicotine (Nicoderm Cq) 21 MG/24 HOUR PATCH.TD24 1 Patch On the skin DAILY Qty = 28 No Refills Comments: Last Taken: 03/09/16 Time: 10AM Copies To: KALA MARCUS,BEBETO Huff Attending MD Review Statement Documenting Attending: SAE MARCUS,ROBERT QUEVEDO MD,ROBERT
[2016-03-08] MEDS ORDERED: PREDNISONE10 M2 PO ×2 (11:31→11:43)
[2016-03-08 14:06] VITALS: BP 130/60
[2016-03-08 21:58] VITALS: BP 136/93
[2016-03-09 06:48] VITALS: BP 142/80
--- NOTE | 2016-03-09 07:27 | PN- Housestaff ---
Subjective Follow-up For: COPD exacerbation Urinary retention Tachycardia Subjective: Seen and examined the patient this morning sitting comfortably at side of bed. States he's feeling much better today, denies any shortness of breath. Also indicated that he is decided to quit smoking. Review of Systems Constitutional: Denies: chills, diaphoresis, fever, malaise, weakness, unexplained weight loss. Cardiovascular: Denies: chest pain, edema, orthopena, palpitations, peripheral edema, syncope. Respiratory: Denies: cough, hemoptysis, orthopnea, short of breath, sputum production, stridor, wheezing. Objective Last 24 Hrs of Vital Signs/I&O Vital Signs Date Time Temp Pulse Resp B/P Pulse O2 O2 Flow FiO2 Ox Delivery Rate 03/09 0648 9704.0 100 20 142/80 96 CPAP 03/09 0601 100 142/80 03/09 0049 88 95 03/09 0000 CPAP 03/08 2357 104 136/93 03/08 2236 92 94 03/08 2158 96.8 104 18 136/93 94 03/08 2105 98 CPAP 1.0L 03/08 1837 100 130/72 03/08 1406 97.5 100 20 130/60 95 Room Air 03/08 1332 108 128/72 03/08 0811 96 Room Air Intake & Output 03/09 1600 03/09 0800 03/09 0000 Intake Total 600 600 Output Total 1400 900 Balance -800 -300 Intake, Oral 600 600 Output, Urine 1400 900 Physical Exam General Appearance: Alert, Oriented X3, Cooperative, No Acute Distress Cardiovascular: Regular Rate, Normal S1, Normal S2 Lungs: Clear to Auscultation, Normal Air Movement Current Medications: Current Medications Sig/Emely Start time Last Medication Dose Route Stop Time Status Admin Albuterol Sulfate 3 ML TID 03/06 1600 AC 03/08 INH 2105 Amoxicillin/ 875 MG Q12 03/05 2200 AC 03/08 Clavulanate Potassium PO 204 Aripiprazole 15 MG DAILY 03/06 1000 AC 03/08 PO 0920 Benzonatate 100 MG TID 03/06 1107 AC 03/08 PO 2049 Bisacodyl 5 MG ONE ONE 03/08 1145 DC 03/08 PO 03/08 1146 1332 Clonazepam 0.5 MG Q6P PRN 03/05 1900 AC 03/09 PO 03/12 1859 0601 Diltiazem HCl 30 MG Q6 03/07 1200 AC 03/09 PO 0601 Enoxaparin Sodium 40 MG DAILY 03/05 1840 AC 03/08 SC 0920 Furosemide 20 MG DAILY 03/06 1000 DC 03/08 IV 0920 Gabapentin 300 MG Q6 03/05 2359 AC 03/09 PO 0601 Guaifenesin 600 MG Q12 03/07 1124 AC 03/08 PO 2053 Insulin Aspart 0 TIDAC 03/06 0800 AC 03/08 SC 1837 Ipratropium [place] 2.5 ML TID 03/06 1600 AC 03/08 INH 2105 Methylprednisolone 40 MG Q12 03/08 2200 DC 03/08 IV 03/09 0600 2050 Methylprednisolone 40 MG Q8 03/05 2200 DC 03/08 IV 0639 Nicotine 14 MG DAILY 03/07 1000 AC 03/08 TOP 0921 Oxycodone/ 1 TAB Q6P PRN 03/07 1130 AC 03/09 Acetaminophen PO 0601 Polyethylene Glycol 17 GM DAILY PRN 03/07 0830 AC 03/08 PO 1332 Pravastatin Sodium 40 MG 1700 03/06 1700 AC 03/08 PO 1643 Prednisone 60 MG DAILY 03/09 1000 AC PO Quetiapine Fumarate 300 MG AT BEDTIME 03/05 2200 AC 03/08 PO 2049 Quetiapine Fumarate 100 MG BID PRN 03/05 1900 AC 03/08 PO 1644 Senna/Docusate Sodium 2 TAB DAILY 03/07 0830 AC 03/08 PO 0920 Tamsulosin HCl 0.4 MG DAILY 03/06 1000 AC 03/08 PO 0919 Assessment/Plan Assessment: 50-year-old gentleman with past medical history of COPD, hypertension, current smoker, hyperlipidemia, bipolar disorder presents to the ED with complaints of worsening shortness of breath and cough and tightness current admission for Copd exacerbation. Chest x-ray or was unremarkable. Currently much improved in terms of his breathing and heart rate Plan COPD exacerbation Will discharge patient on prednisone taper Continue Augmentin for 2 more days saturating on room air D-dimer negative Given referral to pulmonology Tachycardia on cardiazem 30q6hr, will discharge him on 120 Cardizem daily will need to follow-up with primary care physician and eventually cardiology referral for workup for possible Holter monitoring Urinary Retention Will be discharged on Yadav catheter Renal Ultrasound ruled out hydronephrosis or hydroureter and distended urinary bladder and no BPH demonstrated Patient will follow up with urology as outpatient Hypertension Continue lisinopril, statin Mood disorder Continue Seroquel, Abilify, clonazepam, gabapentin Diabetes Monitor fingersticks Continue Levemir and insulin sliding scale Diabetic diet Smoking cessation Patient has indicated motivation to quit, would like to try the nicotine patch Patient is full code DVT prophylaxis with Lovenox Problem List: 1. COPD exacerbation 2. Urinary retention 3. Mood disorder Pain Ratin Pain Location: na Pain Goal: Pain 4 or less Pain Plan: current regimen Tomorrow's Labs & Rationales: none required
[2016-03-09] MEDS ORDERED: AMOX-CLAV 875-1 EACH PO (08:11)
[2016-03-09] MEDS ORDERED: NICOTINE PATCH1 EAC2 TOP (08:11)
[2016-03-09] MEDS ORDERED: NICODERM CQ1 EAC2 TOP (09:08)
[2016-03-09 12:31] VITALS: BP 140/72
== END 2016-03-09 12:45 | disposition home health service (06) | DRG 191 ==
LOC: ERH 12:38 → 2NA 16:02 → ENPENDDIS 16:02 → ERHI 16:02 → 2NA 20:56
PROVIDERS: Emergency Medicine; Internal Medicine; ADMIT Hospitalist
DX: J44.1 Chronic obstructive pulmonary disease with (acute) exacerbation (principal); Z68.41 Body mass index [BMI] 40.0-44.9, adult; E11.65 Type 2 diabetes mellitus with hyperglycemia; I10 Essential (primary) hypertension; Z72.0 Tobacco use; E66.9 Obesity, unspecified; F41.9 Anxiety disorder, unspecified; E78.5 Hyperlipidemia, unspecified; F31.9 Bipolar disorder, unspecified; N40.1 Benign prostatic hyperplasia with lower urinary tract symptoms; R33.8 Other retention of urine; Z79.84 Long term (current) use of oral hypoglycemic drugs; R00.0 Tachycardia, unspecified; I49.9 Cardiac arrhythmia, unspecified
CPT/HCPCS: 2NASP; 36415; 76775; 81001; 82436; 87086; 87804; 87804-59; 93005; 93010; 96374; 96375; J1650; J1885; J1940; J2405; J2920; J2930; J3490

== ENCOUNTER 2016-03-10 13:03 | Inpatient (IN) | payer OTHER, MEDICARE ==
[~2016-03-10] VITALS: Ht 177.8 cm; Wt 141.5 kg
[~2016-03-10 13:03] MED LIST changes: +AMOX-CLAV 875-1 EACH PO; +CARDIZEM120 M1 PO; +CARDIZEM30 M1 PO; +MEDROL4 M2 PO; +NICODERM CQ1 EAC2 TOP; +NICOTINE PATCH1 EAC2 TOP; +PREDNISONE10 M2 PO
--- NOTE | 2016-03-10 13:26 | NUR ---
PT HAS A FREQUENT HX OF TIAS IN THE PAST
--- NOTE | 2016-03-10 13:27 | NUR ---
PT TO CT SCAN ON ARRIVAL FOR HEAD CT. LABS DRAWN AND SENT. 20G IV INSERTED TO LEFT HAND
--- NOTE | 2016-03-10 13:28 | ED MVC/FALL/TRAUMA COMPLAINT ---
History of Present Illness General Chief Complaint: Fall Stated Complaint: BIBA FOR FALL Source: patient Exam Limitations: no limitations Vital Signs & Intake/Output Vital Signs & Intake/Output Vital Signs Date Time Temp Pulse Resp B/P Pulse O2 O2 Flow FiO2 Ox Delivery Rate 03/10 1557 98.5 106 20 136/78 97 Room Air 03/10 1545 96.9 107 20 131/72 97 Room Air 03/10 1318 97.5 110 20 145/82 98 Allergies Coded Allergies: Iodinated Contrast Media - Oral and (IODINATED CONTRAST MEDIA - IV DYE) ( ANAPHYLAXIS 03/04/16) Reconcile Medications Albuterol Sulfate (Ventolin Hfa) 90 MCG HFA.AER.AD 2 PUF INH Q4H PRN COPD ( Reported) Albuterol Sulfate (Ventolin Hfa) 90 MCG HFA.AER.AD 2 PUF INH Q4-6 PRN PRN ASTHMA/COPD INCLUDE WITH SPACER Amoxicillin/Clavulanate Potass (Amox-Clav 875-125 MG Tablet) 875 MG-125 MG TABLET 1 TAB PO Q12 COPD Aripiprazole (Abilify) 15 MG TABLET 1 TAB PO DAILY MENTAL HEALTH (Reported) Clonazepam 0.5 MG TABLET 1 TAB PO 4 TIMES/DAY PRN ANXIETY (Reported) Diltiazem HCl (Cardizem) 120 MG TABLET 1 TAB PO DAILY HEART RATE Furosemide 20 MG TABLET 1 TAB PO DAILY DIURETIC (Reported) Gabapentin 300 MG CAPSULE 1 CAP PO 4 TIMES/DAY MENTAL HEALTH (Reported) Nicotine (Nicoderm Cq) 21 MG/24 HOUR PATCH.TD24 1 PAT TOP DAILY smoking cessation Potassium Chloride 20 MEQ TABLET.ER 1 TAB PO BID SUPPLEMENT (Reported) Pravastatin Sodium 40 MG TABLET 1 TAB PO QPM CHOLESTEROL (Reported) Prednisone 10 MG TABLET 1 TAB PO DAILY COPD EXACERBATION On Take 03/09-03/11 6 TAB 03/12-03/14 5 TAB 03/15-03/17 4 TAB 03/18-03/20 3 TAB 03/21-03/23 2 TAB 03/24-03/25 1TAB Then Stop Quetiapine Fumarate (Seroquel XR) 300 MG TAB.ER.24H 1 TAB PO QHS MENTAL HEALTH (Reported) Quetiapine Fumarate (Seroquel) 50 MG TABLET 1 TAB PO BID PRN AGITATION ( Reported) Tamsulosin HCl 0.4 MG CAP.ER.24H 1 CAP PO DAILY URINARY (Reported) Triage Note: PT BIBA FOR SLURRED SPEECH THAT STARTED THIS AM AT 8A. PT STATES HE HAD A FALL AT HOME THIS MORNING AROUND 5A AND DOES NOT RECALL IF HE STRUCK HIS HEAD. PT DOES NOT TAKE ANY BLOOD THINNERS AND DOES NOT C/O OF HEADACHE ON ARRIVAL. PT STATES HE WAS RECENTLY ADMITTED TO THE HOSPITAL FOR A COPD EXAC. PT STATES HIS VISTING NURSE CAME OUT TO VISIT HIM THIS AM AND FAMILY MENTIONED THAT HIS SPEECH WAS OFF AND HE HAD LEFT ARM WEAKNESS. ON ARRIVAL IN ER PT HAS NO NEURO DEFICITS. PT SPEAKING IN CLEAR FULL SENTENCES ON ARRIVAL. 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 PT DENIES CHEST PAIN AND SOB ON ARRIVAL. PT C/O OF CHRONIC PAIN Triage Nurses Notes Reviewed? yes HPI: Patient presents for evaluation of left facial droop with drooling and inability to ambulate beginning last night. Past History Travel History Traveled to [place] past 21 day No Medical History Any Pertinent Medical History? see below for history Neurological: NONE EENT: NONE Cardiovascular: hypertension, hyperlipidemia Respiratory: COPD Gastrointestinal: NONE Hepatic: NONE Musculoskeletal: NONE Psychiatric: bipolar disease Endocrine: diabetes History of MRSA: No History of VRE: No History of CDIFF: No Influenza Vaccine: 12/29/15 Surgical History Surgical History: non-contributory (HERNIA REPAIR), appendectomy Psychosocial History Who do you live with Family What is your primary language Khmer Tobacco Use: Never used Family History Hx Contributory? No Review of Systems Review of Systems Constitutional: Reports: no symptoms. Eyes: Reports: no symptoms. Ears, Nose, Throat, Mouth: Reports: no symptoms. Respiratory: Reports: no symptoms. Cardiovascular: Reports: no symptoms. Gastrointestinal/Abdominal: Reports: no symptoms. Genitourinary: Reports: no symptoms. Musculoskeletal: Reports: no symptoms. Skin: Reports: no symptoms. Neurological/Psychological: Reports: see HPI. All Other Systems: Reviewed and Negative Physical Exam Physical Exam General Appearance: SEE BELOW Comments: Gen.: Well-nourished, well-developed, no acute respiratory distress. Head: Normocephalic, atraumatic. Eyes: Normal inspection bilaterally, PERRLA, EOMI Ears: Normal inspection bilaterally Nose: Normal inspection Throat/mouth : Moist mucosa Neck: Supple, full range of motion, no goiter, no carotid bruits, equal carotid pulses Heart: Regular rate and rhythm, no murmurs rubs or gallops Lungs: Clear to auscultation bilaterally with normal air entry Chest: Nontender Back: Normal range of motion Abdomen: Soft, nontender, nondistended, normal bowel sounds Extremities: Normal range of motion grossly, left upper extremity motor strength 4 out of 5, left lower extremity motor strength 4 over 5, positive left upper extremity dysmetria Neurologic: Cranial nerves grossly intact, speech is slurred Skin: warm and dry Psychiatric: Calm, cooperative, no apparent delusions or hallucinations Core Measures ACS in differential dx? No Severe Sepsis Present: No Septic Shock Present: No Progress Differential Diagnosis: tia, cva, Weston'S PALSY, HYPOGLYCEMIA Plan of Care: Orders Procedure Date/time Status Regular Diet 03/11 D Active MAGNESIUM 03/11 0600 Active BASIC ELECTROLYTES PLUS BUN&CR 03/11 0600 Active Nothing by Mouth 03/10 D Active FingerStick- Glucose 03/10 1706 Active ELECTROENCEPHALOGRAM 03/10 1706 Active Add-on Test (ER Only) 03/10 1635 Active Admit to inpatient 03/10 1543 Active ECHOCARDIOGRAM 03/10 1533 Active Pathway - chart 03/10 1530 Active House Staff 03/10 1530 Active Code Status 03/10 1530 Active Patient Data 03/10 1442 Active LIPID PANEL 03/10 1426 Complete DIRECT LDL 03/10 1426 Complete PROTHROMBIN TIME 03/10 1410 Complete Intake & Output 03/10 1358 Active Add-on Test (ER Only) 03/10 1357 Active GLYCOSYLATED HGB 03/10 1318 Active COMPREHENSIVE METABOLIC PANEL 03/10 1318 Complete CBC WITHOUT DIFFERENTIAL 03/10 1318 Complete EKG 03/10 1307 Active [id number] DOPPLER 03/10 UNK Active SWALLOW EVALUATION 03/10 UNK Active VTE Mechanical Prophylaxis 03/10 UNK Active Vital Signs 03/10 UNK Active NIH Stroke Scale 03/10 UNK Active Heat/Cold Therapy 03/10 UNK Active MRI-HEAD W/O OMI 03/10 UNK Active MRI-HEAD W/O OMI 03/10 UNK Active Current Medications Sig/Emely Start time Last Medication Dose Stop Time Status Admin Aripiprazole 15 MG DAILY 03/11 1000 AC (Abilify) Aspirin 81 MG DAILY 03/11 1000 AC (Aspirin) Diltiazem HCl 120 MG DAILY 03/11 1000 AC (Cardizem CD) Furosemide 20 MG DAILY 03/11 1000 AC (Lasix) Nicotine 14 MG DAILY 03/11 1000 AC (Nicotine Cq) Potassium Chloride 20 MEQ DAILY 03/11 1000 AC (K-Dur) Prednisone 50 MG DAILY 03/11 1000 AC Tamsulosin HCl 0.4 MG DAILY 03/11 1000 AC (Flomax) Insulin Aspart 0 TIDAC 03/11 0800 AC (NovoLOG) Atorvastatin Calcium 80 MG 1700 03/10 1700 AC (Lipitor) Albuterol Sulfate 2 PUF Q4-6 PRN PRN 03/10 1545 CAN (Ventolin) Albuterol Sulfate 2 PUF Q4H PRN 03/10 1545 AC (Ventolin) Clonazepam 0.5 MG 4 TIMES/DAY PRN 03/10 1545 AC (KlonoPIN) 03/17 154 Non-Formulary 0 SEE ADMIN CRITERIA 03/10 154 UNVr Medication (NON FORMULARY) Quetiapine Fumarate 50 MG BID PRN 03/10 1545 AC (SEROquel) Acetaminophen/ 1 TAB Q6P PRN 03/10 1530 AC Hydrocodone Bitart (Vicodin) Diphenhydramine HCl 25 MG Q6P PRN 03/10 1530 AC (Benadryl) Morphine Sulfate 2 MG Q4P PRN 03/10 1530 AC (Morphine) Prochlorperazine 10 MG Q6P PRN 03/10 1530 AC (Compazine) Laboratory Tests 03/10/16 1426: Anion Gap 13, Estimated GFR > 60, BUN/Creatinine Ratio 25.6 H, Glucose 256 H, Calcium 9.0, Total Bilirubin 0.4, AST 36, ALT 46, Alkaline Phosphatase 77, Total Protein 6.6, Albumin 3.7, Globulin 2.9, Albumin/Globulin Ratio 1.3, Triglycerides 690 H, Cholesterol 230 H, LDL Cholesterol, Calc ND, HDL Cholesterol 66 H, Cholesterol/HDL Ratio 3, PT 10.4, INR 0.99 03/10/16 1318: Hemoglobin A1c Pending, CBC w Diff MAN DIFF ORDERED, RBC 4.94, MCV 90.9, MCH 31.0, RDW 14.2, MPV 8.5, Gran % 83.1 H, Lymphocytes % 13.2 L, Monocytes % 3.2, Eosinophils % 0.3, Basophils % 0.2, Absolute Granulocytes 17.1 H, Segmented Neutrophils 77 H, Absolute Lymphocytes 2.7, Lymphocytes 21, Monocytes 2, Absolute Monocytes 0.7 H, Absolute Eosinophils 0.1, Absolute Basophils 0, Platelet Estimate ADEQUATE, Normocytic RBCs VERIFIED, Normochromic RBCs VERIFIED , PUBS MCHC 34.2 Diagnostic Imaging: Discussed w/RAD: CT Scan. Radiology Impression: NO ACUTE INTRACRANIAL ABNORMALITY, PATIENT: MATT HALE PRESENT AGE: 50 PATIENT ACCOUNT NO: [id number] : LOCATION: [facility] ORDERING PHYSICIAN: RADHA JO DO SERVICE DATE: 03/10/16 EXAM TYPE: CAT - CT HEAD WO IV CONTRAST EXAMINATION: CT HEAD WITHOUT CONTRAST CLINICAL INFORMATION: Slurred speech. Evaluate for intracranial hemorrhage. COMPARISON: None. TECHNIQUE: Contiguous axial imaging was performed from the skull base to vertex without intravenous administration of contrast. DLP: 186.89 mGy-cm. FINDINGS: Evaluation is slightly limited secondary to beam hardening artifact. There is no evidence of acute intracranial hemorrhage or territorial infarction. No abnormal mass effect or midline shift is seen. Son to white matter differentiation is well preserved. No extra-axial fluid collections are identified. The ventricles are normal in size. There is no abnormal attenuation within the brain parenchyma. The calvarium is intact. Secretions are noted within the visualized maxillary sinuses and ethmoid air cells. Paranasal sinuses and mastoid air cells are otherwise clear. Debris is noted within both external auditory canals, likely representing cerumen. IMPRESSION: No acute intracranial abnormality. No intracranial hemorrhage or mass effect. Consider further evaluation with MRI, if there is concern for acute ischemia. Mild sinus disease. DICTATED BY: HERB BARROW DO DATE/TIME DICTATED:03/10/161334 [employer] OPERATOR:DOMINIC DATE/TIME TRANSCRIBED:1334 CONFIDENTIAL, DO NOT COPY WITHOUT APPROPRIATE AUTHORIZATION. < Electronically signed in Other Vendor System> SIGNED BY: HERB BARROW DO 03/10/16 1343 Initial ED EKG: SINUS TACHYCARDIA WITH A VENTRICULAR RATE OF 112 Prior EKG: unchanged Rhythm Strip: normal sinus rhythm Comments: 03/10/2016 5:25:34 PM patient updated on test results, patient swallowed bedside swallowing test, case discussed with hospitalist and house staff. Departure Departure Disposition: STILL A PATIENT Condition: Stable Clinical Impression Primary Impression: TIA (transient ischemic attack) Qualifiers: Transient cerebral ischemia type: unspecified Qualified Code: G45.9 - Transient cerebral ischemic attack, unspecified Referrals: KALA MARCUS,BEBETO Huff (PCP/Family) Departure Forms: Customer Survey General Discharge Information Admission Note Spoke With: POONAM LOPEZ MD Documentation of Exam: Documentation of any treatments & extenuating circumstances including Concerns Regarding Discharge (functional status, medication knowledge or non-compliance, living conditions, etc.) that warrant an admission rather than observation: Patient has had focal neurologic symptoms consistent with a TIA since overnight. He has persistent left arm and left leg weakness and dysmetria of the left upper extremity. This left sided weakness will impair his ability to safely ambulate and in fact he states that he had difficulty ambulating overnight causing him to fall into the wall. I do not feel he is a good outpatient candidate at this time given this and the associated possibility of falling with additional injury. In addition the patient should be placed on a box stamper for the possibility of cardioembolic phenomenon secondary to atrial fibrillation or other dysrhythmia. He should have an MRI scan and carotid Doppler studies to address potential reversible causes of his TIA and to prevent future stroke. Antiplatelet therapy should be initiated and neurology consultation should be obtained. Physical therapy should also be considered given the patient's persistent arm and leg weakness. I feel he will require a multiple day hospitalization.
[2016-03-10 13:36] LABS: ABSOLUTE BASOPHIL COUNT 0 /CUMM (0.0-0.2); ABSOLUTE EOSINOPHIL COUNT 0.1 /CUMM (0.0-0.7); ABSOLUTE GRANULOCYTE CT 17.1 /CUMM (1.4-6.5); ABSOLUTE LYMPH COUNT 2.7 /CUMM (1.2-3.4); ABSOLUTE MONOCYTE COUNT 0.7 /CUMM (0.10-0.60); BASOPHIL % 0.2 % (0.0-2.0); EOSINOPHIL % 0.3 % (0-5); GRANULOCYTE % 83.1 % (42.2-75.2); HEMATOCRIT 44.9 % (42-52); MEAN CORPUSCULAR HGB CONC 34.2 G/DL (33.0-37.0); MEAN CORPUSCULAR VOLUME 90.9 FL (80.0-94.0); MEAN PLATELET VOLUME 8.5 FL (7.4-10.4); PLATELET COUNT 235 /CUMM (130-400); RBC DISTRIBUTION WIDTH 14.2 % (11.5-14.5); RED BLOOD CELL CT 4.94 /CUMM (4.70-6.10); WHITE BLOOD CELL COUNT 20.6 /CUMM (4.8-10.8)
--- NOTE | 2016-03-10 13:42 | NUR ---
PT BACK FROM CT SCAN
--- NOTE | 2016-03-10 13:43 | CT SCAN REPORT ---
EXAMINATION: CT HEAD WITHOUT CONTRAST CLINICAL INFORMATION: Slurred speech. Evaluate for intracranial hemorrhage. COMPARISON: None. TECHNIQUE: Contiguous axial imaging was performed from the skull base to vertex without intravenous administration of contrast. DLP: 186.89 mGy-cm. FINDINGS: Evaluation is slightly limited secondary to beam hardening artifact. There is no evidence of acute intracranial hemorrhage or territorial infarction. No abnormal mass effect or midline shift is seen. Son to white matter differentiation is well preserved. No extra-axial fluid collections are identified. The ventricles are normal in size. There is no abnormal attenuation within the brain parenchyma. The calvarium is intact. Secretions are noted within the visualized maxillary sinuses and ethmoid air cells. Paranasal sinuses and mastoid air cells are otherwise clear. Debris is noted within both external auditory canals, likely representing cerumen. IMPRESSION: No acute intracranial abnormality. No intracranial hemorrhage or mass effect. Consider further evaluation with MRI, if there is concern for acute ischemia. Mild sinus disease.
--- NOTE | 2016-03-10 14:08 | NUR ---
ASSUMED CARE OF PT WHO IS AWAKENED BY VERBAL STIMULAI. PT STATES "I JUST DON'T FELL RIGHT" WAITING FOR ADDITIONAL LAB RESULTS. WILL CTM
[2016-03-10 14:53] LABS: PT 10.4 SEC (9.4-12.5)
--- NOTE | 2016-03-10 15:04 | History & Physical ---
RUBIA MARCUS,[facility] 03/10/16 1503: General Information and HPI MD Statement: I have seen and personally examined CORY HALE and documented this H&P. The patient is a 50 year old M who presented with a patient stated chief complaint of left facial droop and fall early in the am on 03/10/2016.. Source of Information: patient, family, old records Exam Limitations: no limitations History of Present Illness: 50-year-old male with past medical history of COPD, hypertension, current smoker , hyperlipidemia, bipolar disorder who was recently Discharged from [place] for Acute hypoxic respiratory failure secondary to COPD exacerbation on 03/08/2016 seen and examined this afternoon. He was brought in by ambulance after experiencing weakness, slurred speech, and experiencing a fall in the early hours of 03/10/2016. Patient states that since he's been discharged home he has continued to feel weak and malaise. Last night at approximately 2 AM the patient woke up and needed to use the restroom. After having a bowel movement the patient reports that he felt unsteady and weak on his feet having opened the door (which gave in ) the patient lost balance and reports that he had a fall where he experienced head trauma. The patient states that he then crawled onto a chair on his hands and knees and lay there passed out until early this morning where he was found by his future son-in-law. The patient states that his son-in-law reported that he was slurring his speech and was drooling from his left hand side of his mouth while attempting to drink his morning cup of coffee. The patient was then visited by visiting nurse due to the fact that he has a chronic Hsu catheter was advised by her that given his symptoms and presentation he should come to the emergency department. In addition to the above the patient also complains of a headache. Headache is rated at a 9 out of 10 in severity. Described as a throbbing headache. Bilateral in nature. Located behind the frontal area and radiating to the back occipital area. Allergies/Medications Allergies: Coded Allergies: Iodinated Contrast Media - Oral and (IODINATED CONTRAST MEDIA - IV DYE) ( ANAPHYLAXIS 03/04/16) Compliance With Home Meds: GOOD Past History Travel History Traveled to [place] past 21 day No Medical History Neurological: NONE EENT: NONE Cardiovascular: hypertension, hyperlipidemia Respiratory: COPD Gastrointestinal: NONE Hepatic: NONE Musculoskeletal: NONE Psychiatric: bipolar disease Endocrine: diabetes History of MRSA: No History of VRE: No History of CDIFF: No Influenza Vaccine: 12/29/15 Surgical History Surgical History: non-contributory (HERNIA REPAIR), appendectomy Past Family/Social History Psychosocial History Where do you live? Home Who Do You Live With? Family, Daughter, Future son in Law, Ex Mother in Law Services at Home: Home Health Aide Primary Language: [place] Citizen Functional Ability ADLs Independent: dressing, eating, toileting, bathing. Ambulation: independent IADLs Independent: shopping, housework, finances, food prep, telephone, transportation , medication admin. Sexual History Sexually Active Yes # of partners 1 Review of Systems Review of Systems Constitutional: Reports: see HPI, malaise, weakness. Denies: chills, diaphoresis. Cardiovascular: Reports: chest pain, orthopena, palpitations, peripheral edema, syncope. Respiratory: Reports: cough, short of breath. Denies: sputum production. GI: Denies: abdominal pain, bloating, constipation, distention, bowel incontinence, melena. Genitourinary: Reports: see HPI. Musculoskeletal: Denies: back pain, gout, joint pain, joint swelling. Exam & Diagnostic Data Last 24 Hrs of Vital Signs/I&O Vital Signs Date Time Temp Pulse Resp B/P Pulse O2 O2 Flow FiO2 Ox Delivery Rate 03/10 1318 97.5 110 20 145/82 98 Physical Exam General Appearance Alert, Oriented X3, Cooperative, No Acute Distress Cardiovascular Regular Rate, Normal S1, Normal S2 Lungs Expiratory Rhonchi Bilaterally Abdomen Normal Bowel Sounds, Soft, No Tenderness, Distended Neurological Normal Speech, Normal Tone, Cranial Nerves 3-12 NL, Strenght LLE 3/ 5 LUE: 3/5 RUE: 5/5 RLE: 4/5 Last 24 Hrs of Labs/Davide: Laboratory Tests 03/10/16 1426: Anion Gap 13, Estimated GFR > 60, BUN/Creatinine Ratio 25.6 H, Glucose 256 H, Calcium 9.0, Total Bilirubin 0.4, AST 36, ALT 46, Alkaline Phosphatase 77, Total Protein 6.6, Albumin 3.7, Globulin 2.9, Albumin/Globulin Ratio 1.3, Triglycerides 690 H, Cholesterol 230 H, LDL Cholesterol, Calc ND, HDL Cholesterol 66 H, Cholesterol/HDL Ratio 3, PT 10.4, INR 0.99 01/12/17 1318: Hemoglobin A1c Pending, CBC w Diff MAN DIFF ORDERED, RBC 4.94, MCV 90.9, MCH 31.0, RDW 14.2, MPV 8.5, Gran % 83.1 H, Lymphocytes % 13.2 L, Monocytes % 3.2, Eosinophils % 0.3, Basophils % 0.2, Absolute Granulocytes 17.1 H, Segmented Neutrophils 77 H, Absolute Lymphocytes 2.7, Lymphocytes 21, Monocytes 2, Absolute Monocytes 0.7 H, Absolute Eosinophils 0.1, Absolute Basophils 0, Platelet Estimate ADEQUATE, Normocytic RBCs VERIFIED, Normochromic RBCs VERIFIED , PUBS MCHC 34.2 Diagnostic Data EKG Results Sinus tachycardia rate 112 QTC [address] changes. Other Results SERVICE DATE: 03/10/16 EXAM TYPE: CAT - CT HEAD WO IV CONTRAST EXAMINATION: CT HEAD WITHOUT CONTRAST CLINICAL INFORMATION: Slurred speech. Evaluate for intracranial hemorrhage. COMPARISON: None. TECHNIQUE: Contiguous axial imaging was performed from the skull base to vertex without intravenous administration of contrast. DLP: 186.89 mGy-cm. FINDINGS: Evaluation is slightly limited secondary to beam hardening artifact. There is no evidence of acute intracranial hemorrhage or territorial infarction. No abnormal mass effect or midline shift is seen. Son to white matter differentiation is well preserved. No extra-axial fluid collections are identified. The ventricles are normal in size. There is no abnormal attenuation within the brain parenchyma. The calvarium is intact. Secretions are noted within the visualized maxillary sinuses and ethmoid air cells. Paranasal sinuses and mastoid air cells are otherwise clear. Debris is noted within both external auditory canals, likely representing cerumen. IMPRESSION: No acute intracranial abnormality. No intracranial hemorrhage or mass effect. Consider further evaluation with MRI, if there is concern for acute ischemia. Mild sinus disease. DICTATED BY: HERB BARROW DO SERVICE DATE: 03/10/16- EXAM TYPE: MRI - MRI-HEAD W/O OMI EXAMINATION: MR BRAIN WITHOUT CONTRAST CLINICAL INFORMATION: Facial droop and drooling. COMPARISON: CT scan of the head earlier 03/10/2016. TECHNIQUE: MRI of the brain without contrast was obtained using routine sequences. Images are degraded by patient motion artifact as the patient was claustrophobic. FINDINGS: No diffusion abnormalities are identified to suggest an acute or subacute infarct. No mass effect or midline shift is seen. The ventricles are normal in size. Brain parenchymal signal is unremarkable. No extra-axial fluid collections are seen. The brainstem and cerebellum are normal. No pathologic magnetic susceptibility artifact is identified on the gradient refocused acquisition. The craniovertebral junction, marrow signal, and midline structures are normal. The major intracranial flow-voids at the level of the [place] are preserved. The dural venous sinus flow-voids are maintained. The mastoid air cells are well-aerated. There is mucoperiosteal thickening in the bilateral maxillary and ethmoid sinuses. A fluid level is noted in the left maxillary sinus. IMPRESSION: 1. There are no acute bleeds or infarcts. 2. There is paranasal sinus disease. DICTATED BY: SHERMAN MCMILLAN MD Assessment/Plan Assessment: This is a 50-year-old gentleman with past medical history of carotid ultrasound. Bipolar and recent Recent COPD exacerbation who was admitted following a fall and subjective slurring of speech in the early hours of 03/10/2016. #Syncope, likely multifactorial Admit patient to telemetry for continuous monitoring rule out any arrhythmias, which may be causing his syncope. Since episode occurred after bowel movement consider vasovagal event. Rule out TIA. Neurology consult in the a.m. EEG in a.m. Initial imaging studies of head, has not shown any acute intracranial pathology. Follow-up imaging studies: MRI and carotid ultrasound. Begin asked aspirin 81 mg. Begin high-dose atorvastatin 80 mg. U tox. #History of COPD Continue supplemental oxygen to maintain saturations above 92%. Incentive spirometer TRC nebulizer treatments Continue prednisone taper as previously instructed from discharge. #History of hypertension Continue diltiazem #History of bipolar disorder. Continue home medications. Consider psych consult for Appropriate advice on current patient medications Consider social work consult for recomendations to improve situation at home. #Headache Tylenol 650 MG Q6 hours. #Diet Regular Heart Healthy Diet #DVT prophylaxis ALPS #Code Full code As Ranked By This Provider Problem List: 1. TIA (transient ischemic attack) Qualifiers Transient cerebral ischemia type: unspecified Qualified Code: G45.9 - Transient cerebral ischemic attack, unspecified 2. Tachycardia 3. Mood disorder 4. Urinary retention 5. Panic attack as reaction to stress Core Measures/Miscellaneous Acute Coronary Syndrome ACS Diagnosis: No Cerebrovascular Accident CVA/TIA Diagnosis: No Congestive Heart Failure CHF Diagnosis: No Venous Thromboembolism VTE Risk Factors: Age > 40 VTE Prophylaxis Ordered Inpt: Mechanical (ALPS/TEDS) No Mech VTE prophylaxis d/t: No contraindications No VTE Pharm Prophylaxis d/t: No contraindications VTE Diagnosis: No VTE Type: NONE VTE Confirmed by (Test): NONE Severe Sepsis Severe Sepsis Present: No Septic Shock Septic Shock Present: No Miscellaneous Documentation Attending Case Discussed With: SMITH MARTINEZ MD Primary Care Physician: BEBETO ARMENDARIZ MD Patient sees these Specialists NA Level of Patient Care: Telemetry LEDY ADKINS MD 03/10/16 1637: Resident Review Statement Resident Statement: examined this patient, discussed with internal controls manager, agreed with internal controls manager, discussed with family, reviewed EMR data (avail), discussed with nursing , discussed with case mgmt, reviewed images, amended to note Other Findings: Cory is a 50-year-old man with medical history of COPD hypertension dyslipidemia active tobacco user bipolar disorder, recent admission to [facility] for acute hypoxic hypercarbic respiratory failure and COPD exacerbation. During the last admission he was treated for COPD exacerbation, and discharged on prednisone taper as well as Augmentin and a referral to pulmonology. It is also recommended discharge that he follow-up with primary care provider and arrange an outpatient Holter monitor. Now presents with symptoms that are concerning for TIA versus CVA. His vital signs are stable, tachycardia noted. Agree with physical examination above. Labs are unremarkable. CAT scan of the head did not show any intracranial hemorrhage or old infarcts. Suspect transient ischemic attack, he should be evaluated for cerebrovascular accident. - Problems - ?TIA versus CVA COPD HTN - Plan - Continuous cardiac monitoring Daily aspirin Carotid ultrasound Echocardiogram Check lipid panel and hemoglobin A1c Check swallow evaluation Q4 neurochecks Consider MRI brain Neurology evaluation Hold sedating medications Continue inhalers/nebs DVT prophylaxis with Alps Full code SMITH MARTINEZ MD 03/10/16 0082: General Information and HPI Allergies/Medications Home Med list Albuterol Sulfate (Ventolin Hfa) 90 MCG HFA.AER.AD 2 PUF INH Q4H PRN COPD ( Reported) Albuterol Sulfate (Ventolin Hfa) 90 MCG HFA.AER.AD 2 PUF INH Q4-6 PRN PRN ASTHMA/COPD INCLUDE WITH SPACER Aripiprazole (Abilify) 15 MG TABLET 1 TAB PO DAILY MENTAL HEALTH (Reported) Aspirin (Ecotrin*) 81 MG TABLET.DR 1 TAB PO DAILY Heart health Clonazepam 0.5 MG TABLET 1 TAB PO 4 TIMES/DAY PRN ANXIETY (Reported) Diltiazem HCl (Cardizem) 120 MG TABLET 1 TAB PO DAILY HEART RATE Furosemide 20 MG TABLET 1 TAB PO DAILY DIURETIC (Reported) Gabapentin 300 MG CAPSULE 1 CAP PO 4 TIMES/DAY MENTAL HEALTH (Reported) Nicotine (Nicoderm Cq) 21 MG/24 HOUR PATCH.TD24 1 PAT TOP DAILY smoking cessation Pravastatin Sodium 40 MG TABLET 1 TAB PO QPM CHOLESTEROL (Reported) Prednisone 10 MG TABLET 1 TAB PO DAILY COPD EXACERBATION On Take 03/09-03/11 6 TAB 03/12-03/14 5 TAB 03/15-03/17 4 TAB 03/18-03/20 3 TAB 03/21-03/23 2 TAB 03/24-03/25 1TAB Then Stop Quetiapine Fumarate (Seroquel XR) 300 MG TAB.ER.24H 1 TAB PO QHS MENTAL HEALTH (Reported) Quetiapine Fumarate (Seroquel) 50 MG TABLET 1 TAB PO BID PRN AGITATION ( Reported) Tamsulosin HCl 0.4 MG CAP.ER.24H 1 CAP PO DAILY URINARY (Reported) Attending MD Review Statement Attending Statement Attending MD Statement: examined this patient, discuss w/resident/PA/GYROSCOPE REPAIRER, agreed w/resident/PA/GYROSCOPE REPAIRER, reviewed EMR data (avail), discussed with nursing, reviewed images, amended to note Attending Assessment/Plan: The patient is a 50 yo male with h/o bipolar disorder, COPD, HTN, HL who was just discharged from [facility] on 03/08 after treament for COPD exacerbation who presented in the ED with c/o a syncopal event. States this occurred at 2 am. He had a bowel movement and felt weak and unsteady. Lost his balance fell and "passed out". Son-in-law found him and noted slurring of speachand drooping of left side of mouth with drooling. He also complained of a band like throbbing headache. Symptoms resolved prior to arrival in ED ([facility] had come out). He denied any dyspnea, fever, chills, chest pain, palpitations. Has chronic hsu catheter due to BPH. He continues on Prednisone taper prescribed from prior admission. Physical Exam: Vital Signs: T 97.5, P 110, R 20, BP 145/82, PO 98% HEENT: eyes- PERRLA, EOMI divine- sl dry mucosa, sl coating on tongue Neck: no bruits or JVD Chest: scattered rhonchi amd mild diffuse coarse expiratory wheezing Cor: RRR, nl S1, S2 w/o murm (HR 80 on my exam) Abd: BS+, soft, NT, obese Ext: Bilateral edema 1+ left/sl greater on right (chronic per patient) Neuro: nl speech, CN 3-12 intact, motor/sensory intact- sl asymmtry LE RLE 4/5; LLE 5/5 (chronic per patient) Labs/Tests- as above Impression/Plan: #Syncope- the patient describes transient loss of consciousness. This occurred after bowel movement at night. Possible etiologies include vasovagal event, TIA, seizure. Doubt arrhytmia. Suspect supratentorial component as the patient has significant anxiety and stressors. Plan: Admit to telemetry- monitor for arrhthmia q4 hr neuro checks ASA given in ED Change statin to Atorvastatin 80 mg daily. Carotid US, TTE, MRI brain, EEG. Neuro consult. Will check CTPMP- ? Clonzepam prescription (verify patient not going without and thus may have withdrawal seizure). Psychiatry evaluation in morning. #COPD- s/p recent exacerbation and discharge from [place]. Still with some wheeze, however improved per patient. Plan: Albuterol aerosol. Continue Prednisone taper. #Bipolar Disorder- probably some supratentorial component to symptoms. Plan: Continue usual medications (Ariprazole, Clonazepam, Gabapentin). Psychiatry evaluation in morning. #HTN- on Diltiazem. Plan: Continue Diltiazem.
--- NOTE | 2016-03-10 15:57 | NUR ---
REPORT RECEIVED ON PT AND RN CARE ASSUMED RE-ASSESSMENT PERFORMED, CLINICAL STATUS UNCHANGED. ALL V.S.S.
--- NOTE | 2016-03-10 16:20 | NUR ---
PT MEDICATED WITH 650 MG TYLENOL PO FOR 11/06 HEADACHE
--- NOTE | 2016-03-10 17:19 | NUR ---
PT SENT TO U/S
--- NOTE | 2016-03-10 17:51 | NUR ---
PT SENT FROM U/S TO MRI
--- NOTE | 2016-03-10 18:32 | NUR ---
PT BACK TO ROOM FROM MRI
--- NOTE | 2016-03-10 18:43 | NUR ---
PT REPORTS NO RELIEF OF 11/06 HEADACHE PT MEDICATED WITH 2 MG MORPHINE IV FOR PAIN
--- NOTE | 2016-03-10 18:46 | MRI REPORT ---
EXAMINATION: MR BRAIN WITHOUT CONTRAST CLINICAL INFORMATION: Facial droop and drooling. COMPARISON: CT scan of the head earlier 03/10/2016. TECHNIQUE: MRI of the brain without contrast was obtained using routine sequences. Images are degraded by patient motion artifact as the patient was claustrophobic. FINDINGS: No diffusion abnormalities are identified to suggest an acute or subacute infarct. No mass effect or midline shift is seen. The ventricles are normal in size. Brain parenchymal signal is unremarkable. No extra-axial fluid collections are seen. The brainstem and cerebellum are normal. No pathologic magnetic susceptibility artifact is identified on the gradient refocused acquisition. The craniovertebral junction, marrow signal, and midline structures are normal. The major intracranial flow-voids at the level of the [place] are preserved. The dural venous sinus flow-voids are maintained. The mastoid air cells are well-aerated. There is mucoperiosteal thickening in the bilateral maxillary and ethmoid sinuses. A fluid level is noted in the left maxillary sinus. IMPRESSION: 1. There are no acute bleeds or infarcts. 2. There is paranasal sinus disease.
--- NOTE | 2016-03-10 20:23 | NUR ---
PT WILL GO TO ROOM 187-1, BUT BED IS NOT CLEAN
--- NOTE | 2016-03-10 21:06 | NUR ---
PT ADMITTED TO ROOM # 187-1. ORAL REPORT GIVEN TO JIMY ROSARIO ALL V.S.S. CLINICAL STATUS UNCHANGED. PT READY FOR TRANSFER
[2016-03-10 21:51] VITALS: BP 128/78
--- NOTE | 2016-03-10 22:48 | Admission Certification ---
Admission Certification Certification Statement - As attending physician, I certify that at the time of - admission, based on clinical presentation, severity of - symptoms, need for further diagnostic testing and - therapeutic interventions, and risk of adverse outcomes - without in-hospital treatment, in my clinical assessment, - this patient requires an acute hospital stay for a minimum - of two nights or longer. I have also considered psychsocial - factors such as support system, advanced age, financial - issues, cognitive issues, and failed out-patient treatments, - past re-admission history, safety of patient, and lack of - compliance as applicable. Specific rationale supporting this admission is: The patient presented after a syncopal event at home. Noted transient slurring of speech, left facial droop/drooling, ?left arm weakness. Needs telemetry admission to evaluate for TIA, seizures. Needs Neuro consult, MRI, ASA/statin ( given), carotid US.
[2016-03-11 03:54] VITALS: BP 128/74
--- NOTE | 2016-03-11 04:21 | Event Note ---
See Addendum Event Note Event Note: * I assessed Mr. Yan around 0200 hrs. for complaints of recurrent headache. Physical exam was unremarkable and in the setting of previous negative head CT and MRI earlier in the day, normal vital signs the plan was to continue him on nocturnal CPAP and Vicodin PRN for headache * He later requested to speak directly to me and confided that there is a strong possibility his symptoms are associated with his leaving him for his best friend back in september 2015 * He denies active suicidal/homicidal ideations, anxiety, agitation or restlessness at this time * No crisis staff are nutrition assistant at thus time * Obtain psychiatry consult in the AM
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
--- NOTE | 2016-03-11 08:25 | ULTRASOUND REPORT ---
EXAMINATION: DUPLEX BILATERAL CAROTID ULTRASOUND CLINICAL INFORMATION: Stroke. COMPARISON: None. TECHNIQUE: Duplex bilateral carotid US was performed using real-time ultrasound and Doppler techniques (integrating B-mode 2D vascular images, Doppler spectral analysis and color flow Doppler imaging). These techniques were utilized to interrogate the extracranial carotid and vertebral arteries bilaterally. The degree of stenosis is based off criteria similar to NASCET. FINDINGS: No plaque is seen at the carotid bifurcations or within the internal carotid arteries. All velocities are within normal limits. ADDITIONAL FINDINGS: The vertebral arteries show antegrade flow. The external carotid arteries show no significant stenosis. IMPRESSION: No evidence of a hemodynamically significant stenosis involving the internal carotid arteries.
[2016-03-11 08:29] VITALS: BP 132/77
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
--- NOTE | 2016-03-11 14:14 | ELECTROENCEPHALOGRAM REPORT ---
Electroencephalogram Report ELECTROENCEPHALOGRAM RESULTS Date of service: 03/11/16 Ordering Provider: Jackson Saleem MD MILL CONTROL OPERATOR: SABRINA Strickland EEG NUMBER: [id number] TEST UTILIZES: 10-20 system, 21-lead 18 channel digital EEG recording PERTINENT HX/PHYSICAL/NEURO FINDINGS/CLINICAL DIA-year-old man being studied for a possible seizure MEDICATIONS: Gabapentin, prednisone, aripiprazole, aspirin, diltiazem, furosemide, tamsulosin , quetiapine, atorvastatin, albuterol INTERPRETATION: The background during brief moments of alertness reveals a well formed 10 Hz posterior alpha rhythm. Record is a drowsiness alpha becoming somewhat irregular. Low voltage beta is superimposed in the frontal regions. No sleep rhythms were detected. There are no focal, lateralized or epileptiform discharges. Hyperventilation and photic stimulation were unremarkable. IMPRESSION: Normal for a drowsy patient. No focal or epileptiform abnormalities
--- NOTE | 2016-03-11 15:25 | Patient Discharge Instructions ---
Discharge Instructions General Discharge Information Watch for these problems: Fever, nausea, vomiting, chills, weakness, increased generalized edema. Palpitations. Chest pain. Shortness of breath. If you have any adverse reactions from any of the medications prescribed please inform your primary care physician and you may be required to come back to the emergency department. Thank you for letting us be part of your care. Special Instructions: Please follow-up with your primary care physician on 03/16/2016. This is for a post hospital discharge follow-up. Diet Continue normal diet: Yes Activity Activity Self Limited: Yes (As Tolerated) Acute Coronary Syndrome Inclusion Criteria At DC or during hospital stay patient has or had the following: ACS DIAGNOSIS No Discharge Core Measures Meds if any: Prescribed or Continued at Discharge Meds if any: NOT Prescribed or Continued at Discharge Congestive Heart Failure Inclusion Criteria At DC or during hospital stay patient has or had the following: CHF DIAGNOSIS No Discharge Core Measures Meds if any: Prescribed or Continued at Discharge Meds if any: NOT Prescribed or Continued at Discharge Cerebrovascular accident Inclusion Criteria At DC or during hospital stay patient has or had the following: CVA/TIA Diagnosis No Discharge Core Measures Meds if any: Prescribed or Continued at Discharge Meds if any: NOT Prescribed or Continued at Discharge Venous thromboembolism Inclusion Criteria VTE Diagnosis No VTE Type NONE VTE Confirmed by (Test) NONE Discharge Core Measures - Per Current guidelines, there needs to be overlap - treatment for the first 5 days of Warfarin therapy. - If discharged on Warfarin prior to 5 days of - overlap therapy, the patient will need to be - assessed for post discharge needs including - *Post discharge parental anticoagulation - *Warfarin and/or parental anticoagulation education - *Follow up date to check INR post discharge At least 5 days overlap therapy as Inpatient No Meds if any: Prescribed or Continued at Discharge Note: Overlap Therapy is Warfarin and Anticoagulant Meds if any: NOT Prescribed or Continued at Discharge
[2016-03-11 15:57] VITALS: BP 122/71
--- NOTE | 2016-03-11 17:12 | Discharge Summary ---
Visit Information Visit Dates Admission Date: 03/10/16 Discharge Date: 03/11/16 Hospital Course Course Attending Physician: SMITH MARTINEZ MD Primary Care Physician: KALA MARCUS,BEBETO Huff Hospital Course: Mr Yan is a 50-year-old male with past medical history of COPD, hypertension, current smoker, hyperlipidemia, bipolar disorder who was recently Discharged from [facility] for Acute hypoxic respiratory failure secondary to COPD exacerbation on 03/08/2016 who was brought in by ambulance after experiencing weakness, slurred speech, and experiencing a fall in the early hours of 2016. He was admitted to the telemetry floor and below is a summary of the care he received. This is a 50-year-old gentleman with past medical history of carotid ultrasound. Bipolar and recent Recent COPD exacerbation who was admitted following a fall and subjective slurring of speech in the early hours of 03/10/2016. #Syncope, likely Vasovagal The patient was admitted to the telemetry service for continuous monitoring. We monitored for any arrhythmias. Source of his syncope was likely multifactorial. Imaging studies nonfocal and non-revealing in any acute pathology. An EEG done on the second of admission showed no focal or epileptiform abnormalities. The patient was started on an Atorvastatin 80 mg. Prior to discharge the patient was started on aspirin 81 mg daily. #History of COPD Since the patient was recently discharged on a prednisone taper his prednisone was continued at 50 mg. This was as per his previous instructions where he was to adhere to a prednisone taper. #History of BPH Patient does also have a chronic Yadav in place was continued on his home dose of tamsulosin 0.4 mg. #History of hypertension Patient was continued on diltiazem 120mg, blood pressures were well controlled. #History of bipolar disorder. Patient was continued on his home medications. On day 2 of admission we obtained a psychiatry inpatient consult. Psych consult recommended that psychiatry hospitalization was warranted due to recent stressors in the home environment. Many of his physical symptoms could have been attributed to depression and anxiety. #Headache At the time of admission the patient did complain of a headache. Headache was bilateral in nature. He was prescribed [id number] pain medications Tylenol as needed for relief. Patient was also given a combination of hydrocodone and acetaminophen. Allergies: Coded Allergies: Iodinated Contrast Media - Oral and (IODINATED CONTRAST MEDIA - IV DYE) ( ANAPHYLAXIS 01/06/17) Pertinent Lab Results: Patient Name: MATT YAN Location: [facility] Date of : [birth year] Unit Number: [id number] Sex: M Age: 50 Electroencephalogram Report ELECTROENCEPHALOGRAM RESULTS Date of service: 03/11/16 Ordering Provider: Jackson Saleem MD SALES NEGOTIATOR: SABRINA Strickland EEG NUMBER: [id number] TEST UTILIZES: 10-20 system, 21-lead 18 channel digital EEG recording PERTINENT HX/PHYSICAL/NEURO FINDINGS/CLINICAL DIA-year-old man being studied for a possible seizure MEDICATIONS: Gabapentin, prednisone, aripiprazole, aspirin, diltiazem, furosemide, tamsulosin , quetiapine, atorvastatin, albuterol INTERPRETATION: The background during brief moments of alertness reveals a well formed 10 Hz posterior alpha rhythm. Record is a drowsiness alpha becoming somewhat irregular. Low voltage beta is superimposed in the frontal regions. No sleep rhythms were detected. There are no focal, lateralized or epileptiform discharges. Hyperventilation and photic stimulation were unremarkable. IMPRESSION: Normal for a drowsy patient. No focal or epileptiform abnormalities DICTATED BY: MARIO WATSON MD SERVICE DATE: 03/10/16-1318 EXAM TYPE: CAT - CT HEAD WO IV CONTRAST EXAMINATION: CT HEAD WITHOUT CONTRAST CLINICAL INFORMATION: Slurred speech. Evaluate for intracranial hemorrhage. COMPARISON: None. TECHNIQUE: Contiguous axial imaging was performed from the skull base to vertex without intravenous administration of contrast. DLP: 186.89 mGy-cm. FINDINGS: Evaluation is slightly limited secondary to beam hardening artifact. There is no evidence of acute intracranial hemorrhage or territorial infarction. No abnormal mass effect or midline shift is seen. Son to white matter differentiation is well preserved. No extra-axial fluid collections are identified. The ventricles are normal in size. There is no abnormal attenuation within the brain parenchyma. The calvarium is intact. Secretions are noted within the visualized maxillary sinuses and ethmoid air cells. Paranasal sinuses and mastoid air cells are otherwise clear. Debris is noted within both external auditory canals, likely representing cerumen. IMPRESSION: No acute intracranial abnormality. No intracranial hemorrhage or mass effect. Consider further evaluation with MRI, if there is concern for acute ischemia. Mild sinus disease. DICTATED BY: HERB BARROW DO SERVICE DATE: 03/10/16- EXAM TYPE: MRI - MRI-HEAD W/O OMI EXAMINATION: MR BRAIN WITHOUT CONTRAST CLINICAL INFORMATION: Facial droop and drooling. COMPARISON: CT scan of the head earlier 03/10/2016. TECHNIQUE: MRI of the brain without contrast was obtained using routine sequences. Images are degraded by patient motion artifact as the patient was claustrophobic. FINDINGS: No diffusion abnormalities are identified to suggest an acute or subacute infarct. No mass effect or midline shift is seen. The ventricles are normal in size. Brain parenchymal signal is unremarkable. No extra-axial fluid collections are seen. The brainstem and cerebellum are normal. No pathologic magnetic susceptibility artifact is identified on the gradient refocused acquisition. The craniovertebral junction, marrow signal, and midline structures are normal. The major intracranial flow-voids at the level of the [place] of [place] are preserved. The dural venous sinus flow-voids are maintained. The mastoid air cells are well-aerated. There is mucoperiosteal thickening in the bilateral maxillary and ethmoid sinuses. A fluid level is noted in the left maxillary sinus. IMPRESSION: 1. There are no acute bleeds or infarcts. 2. There is paranasal sinus disease. DICTATED BY: SHERMAN MCMILLAN MD SERVICE DATE: 03/10/16- EXAM TYPE: US - MA-LSJPRLU-LEZUJFUAD DOPPLER EXAMINATION: DUPLEX BILATERAL CAROTID ULTRASOUND CLINICAL INFORMATION: Stroke. COMPARISON: None. TECHNIQUE: Duplex bilateral carotid US was performed using real-time ultrasound and Doppler techniques (integrating B-mode 2D vascular images, Doppler spectral analysis and color flow Doppler imaging). These techniques were utilized to interrogate the extracranial carotid and vertebral arteries bilaterally. The degree of stenosis is based off criteria similar to NASCET. FINDINGS: No plaque is seen at the carotid bifurcations or within the internal carotid arteries. All velocities are within normal limits. ADDITIONAL FINDINGS: The vertebral arteries show antegrade flow. The external carotid arteries show no significant stenosis. IMPRESSION: No evidence of a hemodynamically significant stenosis involving the internal carotid arteries. DICTATED BY: NADIA DILLON MD Disposition Summary Disposition Principal Diagnosis: Syncope Likely Vasovagal Additional Diagnosis: #History of COPD #History of BPH #History of hypertension #History of bipolar disorder. #Headache Discharge Disposition: [facility] Discharge Instructions General Discharge Information Code Status: Full Code Patient's Diet: Heart Healthy Patient's Activity: As Tolerated Follow-Up Instructions/Appts: Please follow-up with your primary care physician on 03/16/2016. This is for a post hospital discharge follow-up. Medications at Discharge Discharge Medications: Stop taking the following medications: Potassium Chloride (Potassium Chloride) 20 MEQ TABLET.ER ORAL TWICE DAILY Qty = 60 Amoxicillin/Clavulanate Potass (Amox-Clav 875-125 MG Tablet) 875 MG-125 MG TABLET ORAL EVERY 12 HOURS Days = 2 Continue taking these medications: Aripiprazole (Abilify) 15 MG TABLET 1 Tablet ORAL DAILY Comments: Last Taken: 03/11/16 Time: 10AM Quetiapine Fumarate (Seroquel XR) 300 MG TAB.ER.24H 1 Tablet ORAL TAKE AT BEDTIME Qty = 30 Comments: Last Taken: 03/10/16 Time: 11PM Quetiapine Fumarate (Seroquel) 50 MG TABLET 1 Tablet ORAL TWICE DAILY as needed for AGITATION Qty = 60 Comments: Last Taken: 03/11/16 Time: 4PM Pravastatin Sodium (Pravastatin Sodium) 40 MG TABLET 1 Tablet ORAL Every night Qty = 90 Comments: NOT GIVEN IN HOSPITAL Tamsulosin HCl (Tamsulosin HCl) 0.4 MG CAP.ER.24H 1 Capsule ORAL DAILY Qty = 90 Comments: Last Taken: 03/11/16 Time: 10AM Furosemide (Furosemide) 20 MG TABLET 1 Tablet ORAL DAILY Qty = 30 Comments: Last Taken: 03/11/16 Time: 10AM Clonazepam (Clonazepam) 0.5 MG TABLET 1 Tablet ORAL 4 TIMES A DAY as needed for ANXIETY Qty = 120 Comments: Last Taken: 03/10/16 Time: 2PM Gabapentin (Gabapentin) 300 MG CAPSULE 1 Capsule ORAL 4 TIMES A DAY Comments: Last Taken: 03/11/16 Time: 5PM Albuterol Sulfate (Ventolin Hfa) 90 MCG HFA.AER.AD 2 Puff Inhale through mouth Q4H as needed for COPD Qty = 18 Comments: NOT GIVEN IN HOSPITAL Albuterol Sulfate (Ventolin Hfa) 90 MCG HFA.AER.AD 2 Puff Inhale through mouth EVERY 4-6 HOURS NEEDED as needed for ASTHMA/ COPD Qty = 1 Instructions: INCLUDE WITH SPACER Comments: NOT GIVEN IN HOSPITAL Diltiazem HCl (Cardizem) 120 MG TABLET 1 Tablet ORAL DAILY Days = 30 Comments: Last Taken: 03/11/16 Time: 10AM Prednisone (Prednisone) 10 MG TABLET 1 Tablet ORAL DAILY Qty = 21 Instructions: On Take 03/09-03/11 6 TAB 03/12-03/14 5 TAB 03/15-03/17 4 TAB 03/18-03/20 3 TAB 03/21-03/23 2 TAB 03/24-03/25 1TAB Then Stop Comments: Last Taken: 03/11/16 Time: 10AM Nicotine (Nicoderm Cq) 21 MG/24 HOUR PATCH.TD24 1 Patch On the skin DAILY Qty = 28 Comments: Last Taken: 03/11/16 Time: 10AM Start taking the following new medications: Aspirin (Ecotrin*) 81 MG TABLET. 1 Tablet ORAL DAILY Qty = 30 No Refills Copies To: WALTER MARCUS,MARIO Oneill; KALA MARCUS,EBBETO Huff Attending MD Review Statement Documenting Attending: SMITH MARTINEZ MD Other Findings: The patient was discussed with house staff. All neurologic testing was negative. The patient has multiple stressors and bipolar disorder and majority of symptoms appear to be related to psychiatric issues. Discussed with psychiatry and agree with plan of transfer to [facility]/Psychiatry for evaluation. The patient agrees that he needs medication adjustment.
[2016-03-11] MEDS ORDERED: ASPIRIN EC81 M1 PO (17:53)
== END 2016-03-11 20:18 | DRG 312 ==
LOC: ENRESERVDT → ENRESERVTM → ERH 13:03 → 1NO 15:43 → ERHI 15:43 → 1NO 21:27
PROVIDERS: Emergency Medicine; Internal Medicine Hematology & Oncology; ADMIT Internal Medicine
DX: R55 Syncope and collapse (principal); I10 Essential (primary) hypertension; F31.9 Bipolar disorder, unspecified; J44.9 Chronic obstructive pulmonary disease, unspecified; F17.200 Nicotine dependence, unspecified, uncomplicated; N40.1 Benign prostatic hyperplasia with lower urinary tract symptoms; R33.8 Other retention of urine; R51 Headache; E78.5 Hyperlipidemia, unspecified
CPT/HCPCS: 1NP; 70551; 82436; 87086; 93005; 93010; 95816; 96374; 99233; J0780; J2405; J3490; J7512

== ENCOUNTER 2016-03-11 15:17 | Inpatient (IN) | payer OTHER, MEDICARE ==
[~2016-03-11] VITALS: Ht 175.3 cm; Wt 146.5 kg
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
[2016-03-11] MEDS ORDERED: ASPIRIN EC81 M1 PO (17:53)
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
[2016-03-11 23:36] VITALS: BP 147/87
[2016-03-12 06:31] VITALS: BP 141/92
[2016-03-12 07:35] VITALS: BP 141/92
[2016-03-12 08:30] LABS: ABSOLUTE BASOPHIL COUNT 0 /CUMM (0.0-0.2); ABSOLUTE EOSINOPHIL COUNT 0.2 /CUMM (0.0-0.7); ABSOLUTE GRANULOCYTE CT 12.2 /CUMM (1.4-6.5); ABSOLUTE LYMPH COUNT 4.2 /CUMM (1.2-3.4); BASOPHIL % 0.3 % (0.0-2.0); EOSINOPHIL % 1.3 % (0-5); GRANULOCYTE % 69.1 % (42.2-75.2); HEMATOCRIT 42.6 % (42-52); MEAN CORPUSCULAR HGB 30.7 PG (27.0-31.0); MEAN CORPUSCULAR HGB CONC 33.6 G/DL (33.0-37.0); MEAN CORPUSCULAR VOLUME 91.3 FL (80.0-94.0); MEAN PLATELET VOLUME 8.7 FL (7.4-10.4); PLATELET COUNT 227 /CUMM (130-400); RBC DISTRIBUTION WIDTH 13.6 % (11.5-14.5); RED BLOOD CELL CT 4.67 /CUMM (4.70-6.10)
[2016-03-12 09:23] LABS: WHITE BLOOD CELL COUNT 17.6 /CUMM (4.8-10.8)
[2016-03-12 11:55] VITALS: BP 148/82
--- NOTE | 2016-03-12 12:04 | CPS MD/APRN INITIAL ASSE PSYCH ---
Psychiatric Admission Logging Specialist's Note Reviewed: No Patient Seen and Examined: Yes Identifying Information: middle aged obese white man Chief Complaint: rage Reaction to Hospitalization: agreeable but frustrated History of Present Illness Onset of Illness: over ten years ago Circumstances Leading to Admission: living with his best friend/her new boyfriend Problem(s) Justifying Need for Admission: homicidal thoughts toward 's new bf Other HPI: 50 y/o man w/ hx depressive sx, dx bipolar d/o, mutliple medical problems including CDOPD, syncope, HTN, obese, BPH w/ indwelling catheter, admitted to medicine for left sided weakness and fall; w/ improvement of sx on admission. He presented overwhelmed w/ numerous social stressors and threats to kill his ex best friend, the man who was sleeping w/ his . He was seen by consult service and admitted to [facility] last night. He stated that he is enraged that he has to be here to protect the other man. Stated that he cant sleep, grinding his teeth, cant relax. Anxious visibly. Stated that his daughter is the only one he wants to speak with, that his ex is calling him frequently, he is frustrated with her calling and is unable to stop her calling. No thoughts to kill himself; stated that he doesnt want the other man to , but that he wants him to get beat up. Stated that he can make one phone call to get it done; but then went back on this, stating that he is angry and frustrated; without active plans to harm this man. No voices or other hallucinations noted; no delusions elicited. Past Psychiatric History Past Diagnosis(es)- if any: bipolar d/o Past Precipitating Factors- if any: bz and alcohol use; social stressors - Include inpatient and outpatient treatment Treatment History: Stated that he was on haldol, thorazine, lithium and that he tapered off of them w/ his psychiatrist in the last 6 months. Stated that the abilify pulled him out of the depression earlier this year. Admitted twice in 2011 for SI and AH; also in 2000 and 2005; hx violence and aggression usually precipitating admissions. Outpatient psychiatry, Dr. Raman. Hx dependent traits, separation anxiety per crisis note collateral. No suicide attempts per him. History of Suicide Attempts or Gestures none per him; however in note past suicidal thoughts Substance Abuse History: bz use d/o Allergies: Coded Allergies: Iodinated Contrast Media - Oral and (IODINATED CONTRAST MEDIA - IV DYE) ( ANAPHYLAXIS 03/04/16) Home Med List: reviewed, seroquel, gabapentin, abilify - Include any medical condition(s) that may - impact the patient's recovery/remission Past Medical History: mutliple medical problems including COPD, syncope, HTN, obese, BPH w/ indwelling catheter, admitted to medicine for left sided weakness and fall; w/ improvement of sx on admission. Stated that he has been having frequent syncopal episodes. 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 daughter is primary support Education: HS Vocation/Occupation: worked until february, for [employer] Legal: n/a Healthly Behaviors Screening Tobacco Screening Tobacco Use from ED Docu: Current Daily Use Daily Tobacco Use Amount/Type: => 5 Cigarettes daily - If tobacco counseling indicated - the following topics are required. - #1 Recognizing dangerous situations. - #2 Coping Skills. - #3 Basic information about quitting. Status of Tobacco Cessation Counseling: #1, #2 AND #3 Completed (educated on nicotine ) Cessation Med Status: Nicotine Gum Ordered Alcohol Screening - ETOH screen POS if BAL >=80 or Audit-C>= M4/F3 Audit-C Score from Diag Assess: 0 Alcohol Use Screening Results: Neg per Audit C &/or BAL - If ETOH counseling indicated - the following topics are required. - #1 Express concern about the patient's - drinking at unhealthy levels, include informing - of national norms for moderate drinking: - men <= 14 drinks/week, max 4 drinks/occasion - women <= 7 drinks/week, max 3 drinks/occasion - #2 Providing feedback, including linking alcohol to - negative physical effects (liver injury, hypertension) - negative emotional effects (relationship problems and - depression) - negative occupational consequences (reduced work - performance) - #3 Advising the patient to abstain from alcohol or - to drink below national norms for moderate drinking - (as listed above). Status of ETOH Use Counseling: N/A B/C NO ETOH Use Metabolic Screening - Screen if on a Neuroleptic Medication - Metabolic screening should include: - Blood Pressure, BMI, Glucose or Hgb A1c, & a - Lipid profile from within the past 365 days. Metabolic Screening () Not Applicable, patient not on a neuroleptic. OR () Patient on a neuroleptic(s) . Enter below results for Glucose or Hemoglobin A1C, and lipid panel if obtained during the last 365 days. BMI: 47.700 Blood Pressure: 141/92 Laboratory Results (If applicable): Exam and Plan Mental Status Examination Ambulation Status: slow Appearance: distressed and anxious Attitude towards examiner: cooperative Psychomotor activity: slow Behavior: cooperative Quality of speech: coherent Affect: intense Mood: agitated Suicidal Ideation: none Homicidal Ideation: none however still wishes harm on the 's bf Hallucinations: none Paranoid/Delusional Material: none Difficulties with thought organization: due to anxiety, difficult to focus Insight: fair Judgment: poor Orientation: x3 Cognition: intact grossly Memory Function: intact grossly Estimate of intellectual functioning: fair Assets/Strengths Patient Identified Assets/Strengths: family support Impression/Plan Impression and Plan: 50 y/o man w/ hx depressive sx, dx bipolar d/o, multiple medical problems; stated that he is enraged that his is with another man and had homicidal thoughts to this man. Stated that he cant sleep, grinding his teeth, cant relax. Anxious visibly. Plan: d/c nicotine patch, stated it doesnt help; add nicotine gum q2hrs. D/c benadryl for itching b/c he stated it makes him very anxious and somewhat activated. Continue seroquel, gabapentin at current doses. D/c seroquel PRN, stated it was not helpful agreed to start thorazine 50mg PRN anxiety/agitation; to help w/ impulsivity aggression as well. Wanted to be off of his other meds b/c noted they are not helping him; however discussed that he is already on two antipsychotics at moderate doses; that can titrate up abilify to higher dose prior to considering adding another medication (didnt want more seroquel b/c of weight gain concern). Increase abilify to 20mg daily; continue titrating up if tolerating. Medical: hospitalist to eval his hsu; WBC chronically elevated (down from 20 to 17); mild discomfort around hsu. Smoking: educated him about cutting down, he stated that patch does not help and agreed to gum; poorly motivated to quit during stressful time but has been making some steps (primarily ecig). Educated about weight loss and impact on mental health (lost 50lbs since summer) - Include all active medical diagnosis that require tx DSM 5 Diagnosis(es): Bipolar d/o by hx - Initial Tx Plan for Active Psych & Medical Conditions Treatment Plan: mileu, groups, family support, medication - Factors that would help patient function - in a less restrictive setting. Factors: Risk: significant medical problems; past psychiatric hx, hx aggression violence. Currently, violent thoughts, insomnia, anxiety as target dynamic risk factors. Education about consequences of violence and threats; increase abilify to target depressive sx, change prn to thorazine for help w/ aggression/impulsivity/ lability.
--- NOTE | 2016-03-12 12:18 | NUR ---
PT REPORTS THAT HE DOES NOT WANT TO BE IN THE HOSPITAL AND HE IS TRYING TO STAY CALM. THE DOCTOR HAS ORDERED PRN MEDS FOR HIM TO HELP. HE DENIES SUICIDAL THOUGHTS OR THOUGHTS OF SELF HARM. HE HAS BEEN COOPERATIVE WITH STAFF AND UNIT ROUTINE
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
[2016-03-12 15:43] VITALS: BP 140/78
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
--- NOTE | 2016-03-12 17:19 | NUR ---
PT PM BS 361. DR ESQUEDA HAS DECLINED TO ORDER ENDOCRINE CONSULT AT THIS TIME, BUT STATED THAT SHE WOULD ORDER A LONG ACTING INSULIN FOR BETTER BS CONTROL. PT CONFIRMED HX OF DIABETES FOR WHICH HE TAKES "SLIDING SCALE NOVOLOG" AT HOME. PT ALSO ON PREDNISONE. PT MADE AWARE OF ABOVE PLAN.
--- NOTE | 2016-03-12 17:55 | NUR ---
PT IS COMPLIANT AND COOPERATIVE. MOOD IS STABLE WITH A CONSTRICTED AFFECT. PT CAN HAVE AN IRRITABLE EDGE AT TIMES- EXPRESSES ANGER AT HAVING TO BE IN HOSPITAL. PT DENIES SI AT THIS TIME, C/O CHRONIC PAIN. PT HAS BEEN WITHDRAWN AND ISOLATIVE IN BED, PRESENT ON UNIT FOR MEALS AND VITALS. PT HAS SOME INTERACTION WITH OTHERS WHEN ON UNIT. VITALS ARE STABLE, APPETITE IS GOOD. BLOOD SUGAR IS ELEVATED- 361 AT 1630.
[2016-03-12 20:01] VITALS: BP 124/88
--- NOTE | 2016-03-12 20:47 | PN- Urology ---
Surgical Brief Attending Note Brief Attending Note: called by nursing staff requesting information on type of hsu pt has (coude or not). pt with hematuria during day, now with 75cc estimated clear yellow urine. Pt reports 10/10 pain but not clear if at penis or bladder. Recommend renal US with emphasis on bladder to see if there is retention despite hsu. If pt with retention of 300cc or more, DC hsu and re-insert new regular 18 fr hsu. Presuming pt with pain due to hsu irritation, new orders for meds (including lido gel 2% PRN) to be utilized now until ultrasound result known.
--- NOTE | 2016-03-12 23:52 | NUR ---
SPOKE WITH DR SAWANT REGARDING PT STATUS AND C/O PAIN IN PENIS, "MY WHOLE URINARY TRACT AND MY BACK RIGHT HERE." (LEFT FLANK). PT ALSO WITH BLOOD IN URINE. RECEIVED ORDER FOR UA AND UC AND TO REMOVE CATHETER, IF IT WAS DETERMINED NOT TO BE A COUDE CATHETER. IF CATHETER IS A COUDE CATHETER THEN REFERRAL FOR UROLOGY TO BE MADE APPARENTLY, NURSES CANNOT/NOT ALLOWED TO REMOVE/INSERT COUDE CATHETERS (DISCUSSED WITH KELLY NURSING SOAP MAKER AND MED NURSE EMILE MA). PT UNSURE OF WHAT TYPE OF CATHETER IN PLACE. APPARENTLY, IT WAS PLACED BY HIS UROLOGIST DR MOREAU. NO DOCUMENTATION COULD BE FOUND IN RECORD. PROFESSIONAL OPINIONS BY NURSES VARIED TO WHAT KIND OF CATH IN PLACE. CALL TO DR MOREAU SERVICE. DR ORELLANA COVERING. DR ORELLANA MADE AWARE OF PT STATUS. DR ORELLANA SAID NOT TO REMOVE CATHETER BEFORE ANOTHER RENAL ULTRASOUND IS DONE AND RESULT REVIEWED. VICODIN CHANGED TO PERCOCET FOR PAIN. LIDOCAINE GEL ORDERED FOR PAIN OF PENIS HEAD WHICH IS RED AND INFLAMED. PT AFEBRILE DURING EVENING SHIFT. PT CURRENTLY SLEEPING WITH CPAP IN PLACE. COLLECTED ( ORDERED BY DR SAWANT)
--- NOTE | 2016-03-13 06:44 | NUR ---
PATIEHNT SLEPT 1/2 OR MORE OF NIGHT; PATIENT REPORTING PAIN DUE TO LIM CATHETER; PRN LIDOCAIN GEL, AND PERCOCET GIVEN AT 0300 ALONG WITH PRN THORAZINE; PATIENT SLEPT REST OF NIGHT.
[2016-03-13 08:10] VITALS: BP 150/87
--- NOTE | 2016-03-13 10:51 | ULTRASOUND REPORT ---
EXAMINATION: US RETROPERITONEAL COMPLETE (RENAL) CLINICAL INFORMATION: Urinary retention and renal colic. Hematuria. Question clot retention. COMPARISON: March 07, 2016 TECHNIQUE: Real-time imaging of the kidneys and bladder. FINDINGS: Examination limited due to body habitus RIGHT KIDNEY: 12.6 x 7.0 x 5.5 cm (SAG x AP x TRV). The kidney is normal in size, contour, and echogenicity. Renal cortical thickness is normal. No calculi or focal parenchymal lesions. No hydronephrosis. LEFT KIDNEY: 12.2 x 6.2 x 5.1 cm (SAG x AP x TRV). The kidney is normal in size, contour, and echogenicity. Renal cortical thickness is normal. No calculi or focal parenchymal lesions. No hydronephrosis. BLADDER: Well-distended and normal. Ureteral jets were not identified. Prevoid bladder volume is 137 mL. The Yadav catheter was not able to be visualized on this study. No definite clot identified. IMPRESSION: No hydronephrosis. Real jets not identified. Limited study due to patient's body habitus with Yadav catheter not identified within the urinary bladder but also no definite bladder filling abnormality seen..
--- NOTE | 2016-03-13 11:40 | Cons- Endocrinology ---
General Information and HPI Consulting Request Date of Consult: 03/13/16 Requested By: medical team Reason for Consult: Uncontrolled diabetes Source of Information: patient, old records Exam Limitations: no limitations History of Present Illness: This 50-year-old male with a known history of COPD currently being treated with steroids, diabetes mellitus, hypertension, and bipolar disorder was admitted to the hospital following passing out at home. Apparently he was treated for a COPD exacerbation and was sent home. At home he passed out and had to crawl on the floor to get to a chair. Eventually he came back to the emergency room. The patient states he has a known history of diabetes. He was tried on metformin and Januvia but after taking these medicines he went into urinary retention. He is currently seeing Dr. Davalos and Dr. Fredis Leo because of bladder outlet obstruction felt to be secondary to an enlarged prostate. He has an indwelling Yadav catheter. He is to be scheduled for a TURP. The patient is on prednisone 50 mg once a day in the morning for his COPD. The hospital he is on Levemir 3 units twice a day as well as low-dose NovoLog sliding scale before meals. His blood sugars have been running high. Yesterday his fingerstick blood sugar before breakfast was 241, before lunch 204, before dinner 361, and at bedtime to 25. The patient states that he has lost about 50 pounds of weight since August of last year. He has a long history of bipolar disorder on medications including lithium Seroquel and Abilify. He tapered himself off a lot of these medicines which she felt helped him lose weight. At the present time he is on Thorazine. He states he is under a lot of stress because of a difficult divorce that he is going through. Allergies/Medications Allergies: Coded Allergies: Iodinated Contrast Media - Oral and (IODINATED CONTRAST MEDIA - IV DYE) ( ANAPHYLAXIS 03/04/16) Home Med List: Albuterol Sulfate (Ventolin Hfa) 90 MCG HFA.AER.AD 2 PUF INH Q4H PRN COPD ( Reported) Albuterol Sulfate (Ventolin Hfa) 90 MCG HFA.AER.AD 2 PUF INH Q4-6 PRN PRN ASTHMA/COPD INCLUDE WITH SPACER Aripiprazole (Abilify) 15 MG TABLET 1 TAB PO DAILY MENTAL HEALTH (Reported) Aspirin (Ecotrin*) 81 MG TABLET.DR 1 TAB PO DAILY Heart health Clonazepam 0.5 MG TABLET 1 TAB PO 4 TIMES/DAY PRN ANXIETY (Reported) Diltiazem HCl (Cardizem) 120 MG TABLET 1 TAB PO DAILY HEART RATE Furosemide 20 MG TABLET 1 TAB PO DAILY DIURETIC (Reported) Gabapentin 300 MG CAPSULE 1 CAP PO 4 TIMES/DAY MENTAL HEALTH (Reported) Nicotine (Nicoderm Cq) 21 MG/24 HOUR PATCH.TD24 1 PAT TOP DAILY smoking cessation Pravastatin Sodium 40 MG TABLET 1 TAB PO QPM CHOLESTEROL (Reported) Prednisone 10 MG TABLET 1 TAB PO DAILY COPD EXACERBATION On Take 03/09-03/11 6 TAB 03/12-03/14 5 TAB 03/15-03/17 4 TAB 03/18-03/20 3 TAB 03/21-03/23 2 TAB 03/24-03/25 1TAB Then Stop Quetiapine Fumarate (Seroquel XR) 300 MG TAB.ER.24H 1 TAB PO QHS MENTAL HEALTH (Reported) Quetiapine Fumarate (Seroquel) 50 MG TABLET 1 TAB PO BID PRN AGITATION ( Reported) Tamsulosin HCl 0.4 MG CAP.ER.24H 1 CAP PO DAILY URINARY (Reported) Current Medications: Current Medications Sig/Emely Start time Last Medication Dose Route Stop Time Status Admin Acetaminophen 650 MG Q6P PRN 03/11 1630 AC PO Acetaminophen/ 1 TAB Q6P PRN 03/11 1630 DC 03/12 Hydrocodone Bitart PO 1601 Albuterol Sulfate 2 PUF Q6P PRN 03/11 1615 AC 03/12 INH 1749 Aripiprazole 20 MG DAILY 03/13 1000 AC 03/13 PO 0817 Aspirin 81 MG DAILY 03/12 1000 AC 03/13 PO 0817 Atorvastatin Calcium 80 MG 1700 03/11 1700 AC 03/12 PO 1636 Chlorpromazine 50 MG Q6-PRN PRN 03/12 1115 AC 03/13 PO 0818 Clonazepam 0.5 MG FOUR TIMES A DAY 03/11 1800 AC 03/13 PO 03/18 1759 0816 Diltiazem HCl 120 MG DAILY 03/12 1000 AC 03/13 PO 0817 Gabapentin 300 MG FOUR TIMES A DAY 03/11 1800 AC 03/13 PO 0817 Insulin Aspart 0 TIDAC 03/11 1700 AC 03/13 SC 0840 Insulin Detemir 3 UNITS BID 03/12 2200 AC 03/12 SC 2137 Lidocaine 1 DEVON Q2P PRN 03/12 2030 AC 03/13 TOP 0253 Nicotine 2 MG Q2 HRS NEEDED PRN 03/12 1015 AC 03/12 PO 1433 Oxycodone/ 1 TAB Q4P PRN 03/12 2045 AC 03/13 Acetaminophen PO 0816 Phenazopyridine HCl 100 MG PC PRN 03/12 2045 AC PO Potassium Chloride 20 MEQ DAILY 03/12 1000 AC 03/13 PO 0817 Prednisone 50 MG DAILY 03/12 1000 AC 03/13 PO 0817 Prochlorperazine 5 MG Q8P PRN 03/11 1630 AC PO Quetiapine Fumarate 300 MG AT BEDTIME 03/11 2200 AC 03/12 PO 2138 Tamsulosin HCl 0.4 MG DAILY 03/12 1000 AC 03/13 PO 0817 Review of Systems Review of Systems Constitutional: Denies: chills, fever. Cardiovascular: Denies: chest pain. Respiratory: Denies: short of breath. GI: Denies: abdominal pain, nausea, vomiting. Genitourinary: Reports: pain (secondary to Yadav catheter). Musculoskeletal: Denies: muscle pain. Skin: Reports: no symptoms. Neurological/Psychological: Reports: anxiety, depressed, emotional problems. Hematologic/Endocrine: Denies: bruising. Past History Medical History Neurological: TIA EENT: sinusitis Cardiovascular: hypertension, hyperlipidemia Respiratory: COPD Gastrointestinal: NONE Hepatic: NONE Renal: benign prost hyperplasia Musculoskeletal: NONE Psychiatric: bipolar disease Endocrine: diabetes Blood Disorders: NONE Cancer(s): NONE STOCK SORTER/Reproductive: NONE Surgical History Surgical History: non-contributory (HERNIA REPAIR), appendectomy Psychosocial History Who Do You Live With? Family, Daughter, Future son in Law, Ex Mother in Law Services at Home: Home Health Aide, Nursing Primary Language: Gibraltarian Functional Ability ADLs Independent: dressing, eating, toileting, bathing. Ambulation: independent IADLs Independent: shopping, housework, finances, food prep, telephone, transportation , medication admin. Employment History Employment: Employed Profession/Employer: Currently works for [employer] Exam & Diagnostic Data Last 24 Hrs of Vital Signs/I&O Vital Signs Date Time Temp Pulse Resp B/P Pulse O2 O2 Flow FiO2 Ox Delivery Rate 03/13 819 Room Air Room Air 03/13 816 96.5 98 150/87 03/13 0810 96.5 98 150/87 03/12 2000 98.0 107 124/88 03/12 1543 104 140/78 03/12 1155 104 148/82 Intake & Output 03/13 1600 03/13 0800 03/13 0000 Intake Total Output Total Balance Patient 323 lb Weight Vital Signs Date Time Temp Pulse Resp B/P Pulse O2 O2 Flow FiO2 Ox Delivery Rate 03/13 819 Room Air Room Air 03/13 816 96.5 98 150/87 03/13 0810 96.5 98 150/87 03/12 2000 98.0 107 124/88 03/12 1543 104 140/78 03/12 1155 104 148/82 Intake & Output 03/13 0000 Intake Total Output Total Balance Patient 323 lb Weight Physical Exam General Appearance: alert, awake, comfortable, obese Head: normal appearance Eyes: Bilateral: normal appearance. Neck: normal inspection Cardiovascular: regular rate/rhythm Gastrointestinal: normal bowel sounds Extremities: swelling (both lower legs) Neurologic/Psych: awake, alert, oriented x 3, normal mood/affect Labs/Davide Results: Laboratory Tests 03/12 1929 Urines Urine Color (YEL,AMB,STR) YEL Urine Clarity (CLEAR) HAZY H Urine pH (5.0 - 8.0) 6.0 Ur Specific [place] (1.001 - 1.035) 1.025 Urine Protein (NEG,<30 MG/DL) 30 H Urine Ketones (NEG) TRACE H Urine Nitrite (NEG) NEG Urine Bilirubin (NEG) NEG Urine Urobilinogen (0.1 - 1.0 EU/dl) 0.2 Ur Leukocyte Esterase (NEG) NEG Ur Microscopic SEDIMENT EXAMINED Urine RBC (0 - 5 /HPF) >75 H Urine WBC (0 - 2 /HPF) 1-3 H Urine Hemoglobin (NEG) LARGE H Urine Glucose (N MG/DL) >=1000 H Assessment/Plan Assessment/Plan This 50-year-old male with a known history of type 2 diabetes associated with morbid obesity presently has uncontrolled diabetes which is being aggravated by steroid therapy. He is on a single dose of prednisone 50 mg each a.m. I would recommend increasing his NovoLog sliding scale to counteract the effects of the prednisone during the day. The usual pattern we see with the single dose of prednisone in the morning is for sugars to get high late in the day and to be much more normal by the next morning. I will also adjust his Levemir. The patient's breathing seems to be much improved. He should undergo a further prednisone taper which has been ordered.. He needs to be seen in pulmonary consult. While the prednisone is being tapered we may need to adjust his insulin further. While in the hospital the patient should also be seen by urology. Apparently a TURP was planned than perhaps this can be accomplished in the near future so that he can have the Yadav catheter removed safely. Consult Acknowledgment - Thank you for your consult request.
[2016-03-13 12:04] VITALS: BP 154/49
--- NOTE | 2016-03-13 14:30 | NUR ---
PT IS COMPLIANT AND COOPERATIVE. MOOD IS STABLE WITH A CONSTRICTED AFFECT. PT DENIES SI AT THIS TIME, C/O PAIN D/T CATHETER. PT HAS BEEN MOSTLY ISOLATIVE AND WITHDRAWN IN ROOM, SLEEPING MUCH OF DAY. PT PRESENT MORE ON UNIT AFTER LUNCH. PT HAS SOME INTERACTION WITH PEERS AND STAFF. PT HAS REFUSED GROUPS TODAY. BLOOD SUGAR IS ELEVATED- 207 @0800 AND 305 @1200. VITALS ARE STABLE, APPETITE IS GOOD.
--- NOTE | 2016-03-13 15:48 | CP SOUTH PROGRESS NOTE PSYCH ---
Psych (Inpt) Progress Note Progress Note Include the following elements, when applicable: Involvement in the active treatment of the patient with behavioral observations of the patient and the patient's response to the treatment. Review of the ongoing treatment process in the context of the treatment plan. Indication of how multi-disciplinary staff members are carrying out the treatment plan. Plans for future interventions and recommendations for revision of the treatment plan. Liaison with other physicians/providers. Progress Note: Stated that thorazine has been more helpful to calm him down; feels that clonazepam and seroquel are no longer helpful b/c he has been on them for so long. Feels less edgy and anxious when he takes thorazine prn. Visibly less anxious (though still quite intense) compared to yesterday. MSE: middle aged man, obese, better related and less anxiou than yesterday. Hsu bag visible, draining. Mood less depressed, affect more full. Thought process concrete. No evidence of suicidal thoughts. No evidence of internal preoccupation or voices. Thought content w/o evidence of any gross delusions or other abnormalities. Insight fair, judgment fair. A: 50 y/o man w/ hx depressive sx, dx bipolar d/o, multiple medical problems including COPD, syncope, HTN, obese, BPH w/ indwelling catheter; admitted overwhelmed, angry and tense, wanting to kill the man who was sleeping w/ his . Improving and less tense, anxious today. Plan: Cross taper from seroquel to thorazine stated that it is more helpful for him w / impulsivity and aggression; did not want to try higher dose of either of his current antipsychotics to max them out prior to starting another antipsychotic; is visibly calmer today. Lower to seroquel 200mg at night time, start thorazine 50mg twice daily. See how he tolerates day time dose of thorazine and continue lowering seroquel. Reviewed usg bladder, wnl. Reviewed brief note from urology rec to remove and change his hsu, however patient is more comfortable today and less pain. Contact urology tmr to monitor. Endocrine saw patient, reviewed recs. Follow up w/ clay mixer tmr about pulm consult.
[2016-03-13 16:04] VITALS: BP 144/83
[2016-03-13 19:46] VITALS: BP 154/84
--- NOTE | 2016-03-13 20:47 | NUR ---
PT HAS BEEN CALM, COOPERATIVE WITH STAFF AND PEERS, AND COMPLIANT WITH UNIT RULES THROUGHOUT SHIFT. PT HAS BEEN IN [place] FOR THE MAJORITY OF SHIFT, SOCIALIZING WELL WITH OTHERS. PT BLOOD GLUCOSE LEVELS WERE 292 AT 1630 AND LATER 248 BEFORE BED. PT MOOD IS STABLE, AFFECT IS EUTHYMIC TO FULL RANGE, APPETITE IS NORMAL, AND COMMUNICATION IS NORMAL. PT DENIES SI AT THIS TIME.
--- NOTE | 2016-03-13 21:40 | NUR ---
Pt is out in the community mood is stable affect is full range, compliant and cooperative with the staff, catheter is still in place monitored and cheked from time to time. Pt vital signs are stable appetite is good. Will continue to monitor the pt overnight.
[2016-03-14 07:33] VITALS: BP 134/80
[2016-03-14 12:36] VITALS: BP 124/75
--- NOTE | 2016-03-14 14:16 | NUR ---
PT IS OUT IN COMMUNITY INTERACTING WELL WITH STAFF AND PEERS. PT FEELS VERY TIRED TODAY AND IS "EMBARRASSED FOR FALLING ASLEEP IN FRONT OF OTHERS." PT IS ACTIVE IN GROUPS. PT MOOD IS STABLE WITH A FLAT AFFECT. PT EXPRESSED SOME HI TOWARDS HIS SOON TO BE EX-'S NEW BOYFRIEND. STAFF MADE AWARE. PT EXPRESSED HE HAS A LOT OF ANGER AND IS TRYING TO LEARN TO CONTROL IT. PT IS COOPEARTIVE WITH STAFF AND WILLING TO WORK ON ANGER ISSUES USING COPING SKILLS. PT DENIES SI
--- NOTE | 2016-03-14 15:25 | SOCIAL WORKER PROG NOTE PSYCH ---
Social Work Progress Note Progress Note SW met with patient today for the first time since admission. Patient met with myself and Anjel Stephens APRN together. Patient reported depression and anxiety, depression 7 out of 10 and anxiety "very high". Patient did present with depressed mood and affect congruent to mood. Patient was open about sharing about recent marital discord which has led to homicidal thoughts towards his wifes current partner. Patient denies any current plan or intent to hurt this specific individual. He reports feeling very upset but appears logical and is able to recognize the consequences if he were to act on hurting him. Patient appears to have multiple stressors in his life at present including: Medical issues, supporting his 5 month pregant daughter and her boyfriend and his 's mother. Patient appears to be managing the stressors to the best of his ability but reports desire for med adjustments at this time. Patient expressed his desire to be detoxed off of klonopin due to not feeling any benefits from it. He reports feeling the Thorazine is helping him monitor his current symptoms and is aware he may take it every 6 hours as needed in addition to its scheduled time.
[2016-03-14 15:38] VITALS: BP 145/91
--- NOTE | 2016-03-14 16:10 | CP SOUTH PROGRESS NOTE PSYCH ---
Psych (Inpt) Progress Note Progress Note Progress Note: I discussed this patient's progress to date, current mental status, treatment process in the context of the treatment plan, and discharge planning with staff/ team in the daily morning inpatient team meeting. I also met with the patient myself in individual session. A total of 25 minutes was spent with the patient with more than 50% spent in counseling and/or coordination of care. SUBJECTIVE: "I'm doing good. I have to be here because I've had bad, angry feelings. I don't want to go to usp." OBJECTIVE: Current Medications Sig/Emely Start time Last Medication Dose Route Stop Time Status Admin Acetaminophen 650 MG .STK-MED ONE 03/14 0755 DC PO 03/14 0756 Acetaminophen 650 MG Q6P PRN 03/11 1630 AC 03/14 PO 0800 Albuterol Sulfate 2 PUF Q6P PRN 03/11 1615 AC 03/12 INH 1749 Aripiprazole 20 MG DAILY 03/13 1000 DC 03/14 PO 0934 Aspirin 81 MG DAILY 03/12 1000 AC 03/14 PO 0934 Atorvastatin Calcium 80 MG 1700 03/11 1700 AC 03/13 PO 1718 Chlorpromazine 50 MG Q4 HRS NEEDED PRN 03/14 1645 UNVr PO Chlorpromazine 50 MG BID 03/13 1545 AC 03/14 PO 0757 Chlorpromazine 50 MG Q6-PRN PRN 03/12 1115 DC 03/14 PO 1323 Clonazepam 0.5 MG 0800,1300,2200 03/15 0800 AC PO 03/21 2159 Clonazepam 0.5 MG FOUR TIMES A DAY 03/11 1800 AC 03/14 PO 03/14 2300 1508 Diltiazem HCl 120 MG DAILY 03/12 1000 AC 03/14 PO 0934 Furosemide 20 MG DAILY 03/14 1126 AC 03/14 PO 1323 Gabapentin 300 MG FOUR TIMES A DAY 03/11 1800 AC 03/14 PO 1508 Insulin Aspart 0 TIDAC/HS 03/13 1200 AC 03/14 SC 1233 Insulin Detemir 10 UNITS BID 03/13 2200 AC 03/14 SC 0938 Lidocaine 1 DEVON Q2P PRN 03/12 2030 AC 03/13 TOP 2023 Nicotine 2 MG Q2 HRS NEEDED PRN 03/12 1015 AC 03/14 PO 0802 Oxycodone/ 1 TAB Q4P PRN 03/12 2044 AC 03/14 Acetaminophen PO 1232 Phenazopyridine HCl 100 MG PC PRN 03/12 2044 AC 03/14 PO 0538 Potassium Chloride 20 MEQ DAILY 03/12 1000 AC 03/14 PO 0934 Prednisone 10 MG DAILY 03/21 1000 AC PO 03/22 220 Prednisone 20 MG DAILY 03/19 1000 AC PO 03/20 220 Prednisone 30 MG DAILY 03/17 1000 AC PO 03/18 2200 Prednisone 40 MG DAILY 03/15 1000 AC PO 03/16 2200 Prednisone 50 MG DAILY 03/12 1000 DC 03/14 PO 0757 Prochlorperazine 5 MG Q8P PRN 03/11 1630 AC PO Quetiapine Fumarate 200 MG AT BEDTIME 03/13 2199 DC 03/13 PO 2130 Tamsulosin HCl 0.4 MG DAILY 03/12 1000 AC 03/14 PO 0934 Laboratory Tests 03/14 1439 Chemistry Sodium (137 - 145 mmol/L) 133 L Potassium (3.5 - 5.1 mmol/L) 4.9 Chloride (98 - 107 mmol/L) 96 L Carbon Dioxide (22 - 30 mmol/L) 29 Anion Gap (5 - 16) 8 BUN (9 - 20 mg/dL) 25 H Creatinine (0.7 - 1.2 mg/dL) 0.9 Estimated GFR (>60 ml/min) > 60 BUN/Creatinine Ratio (7 - 25 %) 27.8 H Vital Signs Date Time Temp Pulse Resp B/P Pulse O2 O2 Flow FiO2 Ox Delivery Rate 03/14 1538 104 145/91 03/14 1236 82 124/75 03/14 0934 92 134/80 03/14 0733 97.5 92 134/80 03/13 1946 95.1 108 154/84 03/13 1604 100 144/83 ASSESSMENT: Today I met the patient along with social services specialist Renetta Cutler Patient reports that he feels agitated, but that the Thorazine is helping with anxiety, anger and irritability. States that he does not feel homicidal, but "just angry." He discussed his life situation, including his pending divorce from his , all of which causes him a combination of sadness and anger. States that he harbors feelings of anger towards his 's boyfriend, however states that he will control himself because he does not want to go to [facility]. He lives in a small apartment along with his 20-year-old daughter who is , her unemployed boyfriend who is on Suboxone, and his [id number]. States that they all get along well. Patient had been seen on the medical floor after suspected TIA. Today no left- sided unilateral deficits noted, no pronator drift. Patient speaks in a clear logical fashion. Depression:7/10; Anxiety:9/10 (with 10 the worst.) Denies suicidal ideation, auditory hallucinations, visual hallucinations, paranoid ideation. Reports homicidal ideation directed toward his 's boyfriend, however has no intent or plan to harm this person. Speech is well articulated, goal-directed, average in rate, volume and tone. The patient understands the risks/benefits/side effects of the medication and is agreeable to continue taking them. Patient has had a number of medical consults and testing: Prednisone to be tapered down every 2 days; renal ultrasound done, please see Dr. Larson's note for more information; Marlon Presley MD has been in to see the patient and has changed his sliding scale insulin; EEG done, please see Dr. Evans's note for further information; TURP scheduled; patient has an appointment scheduled for this coming Monday with urologist Dr. Davalos. Yadav catheter remains in place. PLAN: Patient reports the Klonopin is not helpful although he's been on it for at least one year. We will begin to taper down Klonopin. Patient was on multiple neuroleptics prior to arrival, Abilify and Seroquel had been discontinued. Thorazine 50mg Q4 hours, with a maximum of 4 doses in 24 hours. Continue with other current management as patient is improving. Continue to provide support and encouragement.
[2016-03-14 19:50] VITALS: BP 150/78
--- NOTE | 2016-03-14 21:46 | NUR ---
PT IS VISIBLE ON UNIT, WATCHING TV AND SOCIALIZING WITH PEERS. HAD VISIT FROM SON AND DAUGHTER THIS EVENING. VERY PLEASANT AND COOPERATIVE. ATTENDED WRAP UP MEETING AND PARTICIPATED. NO COMPLAINTS OR SI REPORTED. PT HAS A STABLE MOOD AND FULL RANGE AFFECT.
[2016-03-15 00:30] VITALS: BP 155/88
--- NOTE | 2016-03-15 05:23 | NUR ---
SLEPT WELL AFTER MED WITH PERCOCET FOR SPASMS AND INSULIN GIVEN PER SLIDING SCALE FOR BS 309.
[2016-03-15 07:53] VITALS: BP 115/67
[2016-03-15 12:00] VITALS: BP 146/88
--- NOTE | 2016-03-15 13:45 | NUR ---
PT ATTENDED BOTH GROUPS. PT IS EXPERIENCING PAIN FROM LIM CATHETER AREA AND WAS GIVEN MEDICATION FOR SUCH. PT BRIGHTER IN THE AFTERNOON. PT FORWARD THINKING AND MAKING PHONE CALLS TO ADDRESS PSYCHOSOCIAL CIRCUMSTANCES. PT CONTINUES TO FOCUS ON MULTIPLE MEDICAL ISSUES. PT DENIES SUICIDAL IDEATION.
[2016-03-15 16:28] VITALS: BP 148/77
--- NOTE | 2016-03-15 16:30 | SOCIAL WORKER PROG NOTE PSYCH ---
Social Work Progress Note Progress Note Patient reported some frustration today and is trying to work on anger management. Patient denies any HI/SI today. He is able to identify consequences of acting on his anger and reports having too many responsibilities in his life that he does not want to disappoint. Patients daughter and boyfriend are coming in tomorrow for a family meeting at 11am. Patient reports feeling overwhelmed by his daughter and her and also feels a great amount of stress to provide for the family and currently is out of a job. Patient reports that he would like to continue treatment with [facility] and has a great amount of support from them. We discussed the possibility of IOP together at but patient is unable to afford the copays that would be part of his treatment due to his insurance. He feels comofortable staying in OP with [facility] at this time.
--- NOTE | 2016-03-15 16:31 | SOCIAL WORKER TX PLAN PSYCH ---
Treatment Plan - Please Document: - Evidence that there is ongoing collaboration between - the patient and the interdisciplinary team, - including the patient's active participation and - responsibility for engaging in the treatment regimen, - and that the treatment plan is individualized and - relevant to the patient's conditions. - Treatment plan should reflect documentation indicating - that all active therapeutic efforts are included. Strengths/Capabilities: concerned about providing for his daughter and her soon to be born baby. family support. tx motivated Physical Limitations (Interventions): COPD Patient Identified Trmt Goals: " I want to feel better in general." Discharge Plan: IOP Problem/Goals #1 Problem #1: suicidal ideation Goal (Short Term): Today I will attend 2 groups Today I will identify 2 stressors Today I will identify 2 positive supports Today I will work on recognizing 3 emotions I am feeling Goal (Fpc): Be free of suicidal thoughts/attempts Develop 3 coping skills to deal with depression Identify 3 positive support systems to call in crisis Develop a crisis plan with 3 be people Identify 2 positive traits per week about myself Identify 2 things I have to look forward to Identify 2 positive people in my life and 1 thing I appreciate about them Interventions: Learn ways to manage depressive symptoms accordingly and identify positive supports to manage life stressors and mood fluctuations. Modalities: Encourage groups, education on depression, provide CBT treatment, family meeting. DSM5/PS Stressors/Medical Prob Diagnosis' (DSM 5, Stressors, Medical): Bipolar disorder F31.9 MJ use d/o Sed/Hyp/Anxio(Benzodiazepine) use d/o F13.20; h/o cannabis use d/o F12.2 h/o ETOH use d/o F10.20 COPD, HTN, HLD, DM, BPH Conflict with former current divorce Current GAF: 20 Treatment Team - Responsibilities of members of the treatment team include: - Medication Management- MD or SCREEN PRINTING MACHINE OPERATOR - Medication Administration and Monitoring- Nurse - Group Therapy- Occupational Therapist - 1:1 Therapy,Disch Planning,family involvement-Celebrity Chef Entrepreneur Media Personality
--- NOTE | 2016-03-15 17:16 | PN- Diabetes ---
Assessment/Plan Assessment: Patient feels okay. Blood sugars are running high. He states that he is not eating a lot of snacks. Plan: Rather than increase his insulin which would cause him to gain weight, I have asked him to go back on metformin. The patient is agreeable to this. Subjective Subjective: feels about the same Objective Last 24 Hrs of Vital Signs/I&O Vital Signs Date Time Temp Pulse Resp B/P Pulse O2 O2 Flow FiO2 Ox Delivery Rate 03/15 1628 108 148/77 03/15 1200 92 146/88 03/15 0806 96.7 98 115/67 03/15 0753 96.7 98 115/67 03/15 0030 106 155/88 03/14 1950 95.7 116 150/78 Vital Signs Date Time Temp Pulse Resp B/P Pulse O2 O2 Flow FiO2 Ox Delivery Rate 03/15 1628 108 148/77 03/15 1200 92 146/88 03/15 0806 96.7 98 115/67 03/15 0753 96.7 98 115/67 03/15 0030 106 155/88 03/14 1950 95.7 116 150/78 Physical Exam General Appearance: alert, awake, obese Head: normal appearance Neck: normal inspection Respiratory: normal breath sounds Cardiovascular: regular rate/rhythm Abdomen: normal bowel sounds Extremities: normal inspection Current Medications: Current Medications Sig/Emely Start time Last Medication Dose Route Stop Time Status Admin Acetaminophen 650 MG Q6P PRN 03/11 1630 AC 03/14 PO 0800 Albuterol Sulfate 2 PUF Q6P PRN 03/11 1615 AC 03/12 INH 1749 Aspirin 81 MG DAILY 03/12 1000 AC 03/15 PO 0806 Atorvastatin Calcium 80 MG 1700 03/11 1700 AC 03/15 PO 1657 Chlorpromazine 100 MG AT BEDTIME 03/15 2200 AC PO Chlorpromazine 50 MG 0800,1300,1700 03/15 1300 AC 03/15 PO 1657 Chlorpromazine 50 MG Q4 HRS NEEDED PRN 03/15 1245 AC PO Chlorpromazine 50 MG Q4 HRS NEEDED PRN 03/14 1645 DC 03/15 PO 1059 Chlorpromazine 50 MG BID 03/13 1545 DC 03/15 PO 0804 Clonazepam 0.5 MG 0800,1300,2200 03/15 0800 AC 03/15 PO 03/21 2159 1309 Clonazepam 0.5 MG FOUR TIMES A DAY 03/11 1800 DC 03/14 PO 03/14 2300 2014 Diltiazem HCl 120 MG DAILY 03/12 1000 AC 03/15 PO 0805 Furosemide 20 MG DAILY 03/14 1126 AC 03/15 PO 0805 Gabapentin 300 MG FOUR TIMES A DAY 03/11 1800 AC 03/15 PO 1658 Insulin Aspart 0 TIDAC/HS 03/13 1200 AC 03/15 SC 1656 Insulin Detemir 10 UNITS BID 03/13 2200 AC 03/15 SC 1001 Lidocaine 1 DEVON Q2P PRN 03/12 2030 AC 03/13 TOP 2023 Nicotine 2 MG Q2 HRS NEEDED PRN 03/12 1015 AC 03/14 PO 0802 Oxycodone/ 1 TAB Q4P PRN 03/12 204 AC 03/15 Acetaminophen PO 1311 Phenazopyridine HCl 100 MG PC PRN 03/12 2045 AC 03/14 PO 1808 Potassium Chloride 20 MEQ DAILY 03/12 1000 AC 03/15 PO 0806 Prednisone 10 MG DAILY 03/21 1000 AC PO 03/22 2200 Prednisone 20 MG DAILY 03/19 1000 AC PO 03/20 2200 Prednisone 30 MG DAILY 03/17 1000 AC PO 03/18 2200 Prednisone 40 MG DAILY 03/15 1000 AC 03/15 PO 03/16 2200 0805 Prochlorperazine 5 MG Q8P PRN 03/11 1630 AC PO Tamsulosin HCl 0.4 MG DAILY 03/12 1000 AC 03/15 PO 0806
--- NOTE | 2016-03-15 19:17 | CP SOUTH PROGRESS NOTE PSYCH ---
Psych (Inpt) Progress Note Progress Note Progress Note: I discussed this patient's progress to date, current mental status, treatment process in the context of the treatment plan, and discharge planning with staff/ team in the daily morning inpatient team meeting. I also met with the patient myself in individual session. A total of 25 minutes was spent with the patient with more than 50% spent in counseling and/or coordination of care. SUBJECTIVE: "I feel very anxious, like I just had too much coffee." OBJECTIVE: Current Medications Sig/Emely Start time Last Medication Dose Route Stop Time Status Admin Acetaminophen 650 MG Q6P PRN 03/11 1630 AC 03/14 PO 0800 Albuterol Sulfate 2 PUF Q6P PRN 03/11 1615 AC 03/12 INH 1749 Aspirin 81 MG DAILY 03/12 1000 AC 03/15 PO 0806 Atorvastatin Calcium 80 MG 1700 03/11 1700 AC 03/15 PO 1657 Chlorpromazine 100 MG AT BEDTIME 03/15 2200 AC PO Chlorpromazine 50 MG 0800,1300,1700 03/15 1300 AC 03/15 PO 1657 Chlorpromazine 50 MG Q4 HRS NEEDED PRN 03/15 1245 AC PO Chlorpromazine 50 MG Q4 HRS NEEDED PRN 03/14 1645 DC 03/15 PO 1059 Chlorpromazine 50 MG BID 03/13 1545 DC 03/15 PO 0804 Clonazepam 0.5 MG 0800,1300,2200 03/15 0800 AC 03/15 PO 03/21 2159 1309 Clonazepam 0.5 MG FOUR TIMES A DAY 03/11 1800 DC 03/14 PO 03/14 2300 2014 Diltiazem HCl 120 MG DAILY 03/12 1000 AC 03/15 PO 0805 Furosemide 20 MG DAILY 03/14 1126 AC 03/15 PO 0805 Gabapentin 300 MG FOUR TIMES A DAY 03/11 1800 AC 03/15 PO 1658 Insulin Aspart 0 TIDAC/HS 03/13 1200 AC 03/15 SC 1656 Insulin Detemir 10 UNITS BID 03/13 2200 AC 03/15 SC 1001 Lidocaine 1 DEVON Q2P PRN 03/12 2030 AC 03/13 TOP 2023 Metformin HCl 1,000 MG 1/2H B/BREAKF/DINNER 03/16 0700 AC PO Nicotine 2 MG Q2 HRS NEEDED PRN 03/12 1015 AC 03/14 PO 0802 Oxycodone/ 1 TAB Q4P PRN 03/12 2044 AC 03/15 Acetaminophen PO 1311 Phenazopyridine HCl 100 MG PC PRN 03/12 2044 AC 03/14 PO 1808 Potassium Chloride 20 MEQ DAILY 03/12 1000 AC 03/15 PO 0806 Prednisone 10 MG DAILY 03/21 1000 AC PO 03/22 220 Prednisone 20 MG DAILY 03/19 1000 AC PO 03/20 220 Prednisone 30 MG DAILY 03/17 1000 AC PO 03/18 2200 Prednisone 40 MG DAILY 03/15 1000 AC 03/15 PO 03/16 2200 0805 Prochlorperazine 5 MG Q8P PRN 03/11 1630 AC PO Tamsulosin HCl 0.4 MG DAILY 03/12 1000 AC 03/15 PO 0806 Vital Signs Date Time Temp Pulse Resp B/P Pulse O2 O2 Flow FiO2 Ox Delivery Rate 03/15 1628 108 148/77 03/15 1200 92 146/88 03/15 0806 96.7 98 115/67 03/15 0753 96.7 98 115/67 03/15 0030 106 155/88 03/14 1950 95.7 116 150/78 ASSESSMENT: Patient reports exacerbations of anxiety, requesting changes to his medications. Cooperative and pleasant. Alert and oriented x 3. Has outpatient TURP scheduled for tomorrow, will have to reschedule. Has no complaint about Yadav cath, urine clear, light yellow. Patient has been seen on the unit today by Dr. Presley, new orders for metformin have been placed. Fingerstick glucose has been high. Prednisone continues to taper down. Denies respiratory distress, ambulates with steady gait. Depression: 0/10; Anxiety: 9 /10 (with 10 the worst.) Denies suicidal ideation, homicidal ideation, auditory hallucinations, visual hallucinations, paranoid ideation. Concerning his HI about his estranged 's boyfriend, he states "I'm through with that. I just had to be talked down from it." He reports poor sleep due to anxiety. His appetite is good. Speech is well articulated, goal-directed, average in rate, volume and tone. The patient understands the risks/benefits/side effects of the medication and is agreeable to continue taking them. PLAN: Thorazine 50mg TID; Thorazine 100mg QHS; Thorazine 50mg prn with a maximum of two prn doses. Continue with other current management as patient is improving. Continue to provide support and encouragement.
[2016-03-15 19:38] VITALS: BP 125/67
--- NOTE | 2016-03-15 22:42 | NUR ---
PT IS VISIBLE ON UNIT, WATCHING TV AND SOCIALIZING WITH PEERS. PLEASANT AND COOPERATIVE. ATTENDED WRAP UP MEETING AND PARTICIPATED. NO COMPLAINTS OR SI REPORTED. PT HAS A STABLE MOOD AND FULL RANGE AFFECT.
--- NOTE | 2016-03-16 04:57 | NUR ---
SLEPT WELL C-PAP IN PLACE.
[2016-03-16 07:48] VITALS: BP 145/81
--- NOTE | 2016-03-16 10:15 | NUR ---
PT IS STABLE WITH FULL RANGE OF AFFECT. MINIMALLY VISIBLE WITHIN THE COMMUNITY THIS MORNING. OOB FOR VS, MEDS, BREAKFAST. PT DID NOT ATTEND PLANNING MEETING THIS MORNING. POTENTIAL DC FOR TODAY. PT IS CURRENTLY SLEEPING. VS ARE STABLE AND PT DENIES ANY SI/HI TO THIS MHW.
--- NOTE | 2016-03-16 11:08 | NUR ---
Dr. Presley contacted and per pt can follow-up with pulmonary consult on an outpatient basis and also does not need to be on a novolog sliding scale and to only maintain metformin and levemir per current EMAR orders, Anjel Stephens updated re: the above.
[2016-03-16 12:26] VITALS: BP 138/77
[2016-03-16] MEDS ORDERED: ASPIRIN EC81 M1 PO (12:58)
[2016-03-16] MEDS ORDERED: KLONOPIN0.5 M1 PO (12:58)
[2016-03-16] MEDS ORDERED: CHLORPROMAZINE25 M2 PO (13:09)
[2016-03-16] MEDS ORDERED: KLOR-CON M2020 ME1 PO (13:20)
--- NOTE | 2016-03-16 13:25 | CP SOUTH PROGRESS NOTE PSYCH ---
Psych (Inpt) Progress Note Progress Note Progress Note: I discussed this patient's progress to date, current mental status, treatment process in the context of the treatment plan, and discharge planning with staff/ team in the daily morning inpatient team meeting. I also met with the patient myself in individual session. A total of 30 minutes was spent with the patient with more than 50% spent in counseling and/or coordination of care. SUBJECTIVE: "I'm happy with what I'm on. I think I'm doing okay." OBJECTIVE: Current Medications Sig/Emely Start time Last Medication Dose Route Stop Time Status Admin Acetaminophen 650 MG Q6P PRN 03/11 1630 AC 03/14 PO 0800 Albuterol Sulfate 2 PUF Q6P PRN 03/11 1615 AC 03/12 INH 1749 Aspirin 81 MG DAILY 03/12 1000 AC 03/16 PO 0822 Atorvastatin Calcium 80 MG 1700 03/11 1700 AC 03/15 PO 1657 Chlorpromazine 100 MG AT BEDTIME 03/15 2200 AC 03/15 PO 2226 Chlorpromazine 50 MG 0800,1300,1700 03/15 1300 AC 03/16 PO 1156 Chlorpromazine 50 MG Q4 HRS NEEDED PRN 03/15 1245 AC 03/15 PO 1904 Clonazepam 0.5 MG 0800,1300,2200 03/15 0800 AC 03/16 PO 03/21 2159 1156 Diltiazem HCl 120 MG DAILY 03/12 1000 AC 03/16 PO 0824 Furosemide 20 MG DAILY 03/14 1126 AC 03/16 PO 0827 Gabapentin 300 MG FOUR TIMES A DAY 03/11 1800 AC 03/16 PO 1156 Insulin Aspart 0 TIDAC/HS 03/13 1200 AC 03/16 SC 1158 Insulin Detemir 10 UNITS BID 03/13 2200 AC 03/16 SC 0835 Lidocaine 1 DEVON Q2P PRN 03/12 2030 AC 03/13 TOP 2023 Metformin HCl 1,000 MG 1/2H B/BREAKF/DINNER 03/16 0700 AC 03/16 PO 0821 Nicotine 2 MG Q2 HRS NEEDED PRN 03/12 1015 AC 03/14 PO 0802 Oxycodone/ 1 TAB Q4P PRN 03/12 Acetaminophen PO 223 Phenazopyridine HCl 100 MG PC PRN 03/12 2044 AC 03/15 PO 2227 Potassium Chloride 20 MEQ DAILY 03/12 1000 AC 03/16 PO 0825 Prednisone 10 MG DAILY 03/21 1000 AC PO 03/22 2199 Prednisone 20 MG DAILY 03/19 1000 AC PO 03/20 2199 Prednisone 30 MG DAILY 03/17 1000 AC PO 03/18 2199 Prednisone 40 MG DAILY 03/15 1000 AC 03/16 PO 03/16 220 0826 Prochlorperazine 5 MG Q8P PRN 03/11 1630 AC PO Tamsulosin HCl 0.4 MG DAILY 03/12 1000 AC 03/16 PO 0824 Vital Signs Date Time Temp Pulse Resp B/P Pulse O2 O2 Flow FiO2 Ox Delivery Rate 03/16 1226 98 138/77 03/16 0824 95.5 98 145/81 03/16 0748 95.5 98 145/81 03/15 1938 96.1 102 125/67 03/15 1628 108 148/77 ASSESSMENT: I met the patient twice today, once in individual session, and a second time in a family meeting with his daughter and the daughter's boyfriend. Patient reports that he is doing well, states he feels safe and ready for discharge. States that the current regime of Thorazine has helped significantly with his anxiety, he also slept well last night. "The Thorazine calms me down. " Yadav catheter remains in place, clear yellow output, patient offers no complaints. Patient will attend outpatient urology appointment this afternoon immediately after discharge. In the family meeting with his daughter, and the daughter's boyfriend, his daughter expressed her support and love for her father. They both attend [facility] , and will inquire about resources for family therapy in addition to their own individual therapy and medication management. Depression:0/10; Anxiety:4/10 (with 10 the worst.) Denies suicidal ideation, homicidal ideation, auditory hallucinations, visual hallucinations, paranoid ideation. Patient states that he no longer harbors feelings that he might physically attack his estranged 's boyfriend. He reports that he slept well last night after taking Thorazine 100 mg. States that his appetite "is a little too good." Speech is well articulated, goal-directed, average in rate, volume and tone. Patient is calm, cooperative and pleasant. Alert and oriented 3. Logical. The patient understands the risks/benefits/side effects of the medication and is agreeable to continue taking them. PLAN: Discharge today. Patient will follow-up at [facility] and his medical appointments. Continue with current management as patient is improving. Continue to provide support and encouragement.
[2016-03-16] MEDS ORDERED: METFORMIN HCL1000 M1 PO (13:26)
[2016-03-16] MEDS ORDERED: LEVEMIR FL100 UNIT/1 SC (13:31)
--- NOTE | 2016-03-16 13:32 | DISCHARGE SUMMARY REPORT-PSYCH ---
Visit Information Visit Dates/Diagnosis' Admission Date: 03/11/16 Discharge Date: 03/16/16 Reason for Admission: Admitted to medicine for left sided weakness and fall; wotj improvement of symptoms on admission. He presented overwhelmed with numerous social stressors and threats to kill his ex-bestfriend. Psy Discharge Primary Diag: Bipolar d/o. Psy Discharge Secondary Diag: TIA; BPH; HTN; COPD; DM; HYPERLIPIDEMIA; Hx of Appendectomy; hx of hernia. repair. Hospital Course Significant Lab Findings: Lab BUN 25 mg/dL H 03/14/16 1439 BUN/Creatinine Ratio 27.8 % H 03/14/16 1439 Chloride 96 mmol/L L 03/14/16 1439 Free T4 0.85 ng/dL 03/05/16 1334 Hha-S-Vltoasuqran Pept 159 pg/mL H 03/05/16 1334 Sodium 133 mmol/L L 03/14/16 1439 TSH 0.105 uIU/mL L 03/05/16 1334 Absolute Granulocytes 12.2 /CUMM H 03/12/16 0628 Absolute Lymphocytes 4.2 /CUMM H 03/12/16 0628 Absolute Monocytes 1.0 /CUMM H 03/12/16 0628 Lymphocytes 21 % 03/10/16 1318 Monocytes 2 % 03/10/16 1318 RBC 4.67 /CUMM L 03/12/16 0628 Segmented Neutrophils 77 % H 03/10/16 1318 WBC 17.6 /CUMM H 03/12/16 0628 Course Complications: Patient was admitted to [facility] from the medical floor, following an admission after he was brought in by ambulance after experiencing weakness, slurred speech , and experiencing a fall in the early hours of 03/10/2016. There had been a visiting nurse report of left sided upper extremity weakness. He was admitted to the telemetry floor. An EEG showed no focal or epileptiform abnormalities. He is currently seeing Dr. Davalos and Dr. Fredis Leo because of bladder outlet obstruction felt to be secondary to an enlarged prostate. He has an indwelling Yadav catheter. He is to be scheduled for a TURP. The patient is on prednisone taper for his COPD. Consultations: Patient was seen in the unit for medical follow up by Dr. Ramos. Please refer to her note for additional information. Patient was seen by his sweeper driver Cody Presley MD. Please refer to his notes for additional information. Patient was seen for urology consult by Dr. Larson. Please refer to his note for additional information. Allergies: Coded Allergies: Iodinated Contrast Media - Oral and (IODINATED CONTRAST MEDIA - IV DYE) ( ANAPHYLAXIS 03/04/16) Hospital Course/TX Response: The patient was monitored on the unit for safety, mood stability, anxiety and homicidal ideation. He participated in multimodal treatments on the unit. Prior to admission, he was being treated with three neuroleptic medications. As per protocol, this was tapered down to only one, in this case Thorazine. The patient reported tolerating Thorazine for clear thoughts and anxiety relief well, to good effect. He was also medicated with gabapentin for anxiety, which was also noted to have a good effect. In addition, he was continued on his home medications, and those prescribed on the medical unit, as detailed in the discharge medication summary. Today, the day of discharge, I met the patient twice, once in individual session , and a second time in a family meeting with his daughter and the daughter's boyfriend. Patient reports that he is doing well, states he feels safe and ready for discharge. States that the current regime of Thorazine has helped significantly with his anxiety, he also slept well last night. "The Thorazine calms me down." Yadav catheter remains in place, clear yellow output, patient offers no complaints. Patient will attend outpatient urology appointment this afternoon immediately after discharge. In the family meeting with his daughter, and the daughter's boyfriend, his daughter expressed her support and love for her father. She believes that he is safe and ready for discharge. Both the patient and his daughter attend [facility], and will inquire about resources for family therapy in addition to their own individual therapy and medication management. Depression:0/10; Anxiety:4/10 (with 10 the worst.) Denies suicidal ideation, homicidal ideation, auditory hallucinations, visual hallucinations, paranoid ideation. Patient states that he no longer harbors thoughts of harming others. He reports that he slept well last night after taking Thorazine 100 mg. States that his appetite "is a little too good." Speech is well articulated, goal-directed, average in rate, volume and tone. Patient is calm, cooperative and pleasant. Alert and oriented 3. Logical. The patient understands the risks/benefits/side effects of the medication and is agreeable to continue taking them. Patient reports tolerating medications well, without complaint. Reports he feels safe and ready for discharge. Discharge HBIPS - Tobacco Use Treatment Offered Post DC Medications Offered: Script Given-See Med List Post DC Tobacco Treatment Plan: [facility]x Pgm Program Appt Date: 03/23/16 Program Appt Time: 1600 - EtOH/Drug Use D/O Treatment Offered Post DC Medications Offered: NA-No EtOH/Drug Use D/O Post DC EtOH/SubAbuse TX Plan: NA-No EtOH/Drug Use D/O Metabolic Screening - Screen if on a Neuroleptic Medication - Metabolic screening should include: - Blood Pressure, BMI, Glucose or Hgb A1c, & a - Lipid profile from within the past 365 days. Metabolic Screening () Not Applicable, patient not on a neuroleptic. OR ([x]) Patient on a neuroleptic(s) . Enter below results for Glucose or Hemoglobin A1C, and lipid panel if obtained during the last 365 days. BMI: 47.700 Blood Pressure: 138/77 Laboratory Results (If applicable): Lab Cholesterol 212 MG/DL H 03/11/16 0712 Cholesterol/HDL Ratio 3 % 03/11/16 0712 Glucose 256 mg/dL H 03/10/16 1426 HDL Cholesterol 66 mg/dL H 03/11/16 0712 Hemoglobin A1c 7.1 H 03/10/16 1318 LDL Cholesterol, Calc 84 mg/dL 03/11/16 0712 Triglycerides 310 mg/dL H 03/11/16 0712 Discharge Instructions General Discharge Information Discharge Medications: Discharge Medications- (Dose, route, freq, indication): HOME MEDICATION LIST START taking these NEW Home Medications: Nicotine Dose: ORAL, EVERY 2 HOURS Qty: 30 Call-In to (Nicorelief) 2 MG 2 Milligram NEEDED as needed for Refills: 0 Pharm 1 GUM smoking cessation Aspirin (Ecotrin*) Dose: ORAL, DAILY for HEART Qty: 30 Call-In to 81 MG TABLET. 81 Milligram HEALTH Refills: 0 Pharm 1 Clonazepam Dose: ORAL, 0800,1300,2200 for Qty: 42 Call-In to (Klonopin) 0.5 MG 0.5 Milligram ANXIETY Refills: 0 Pharm 1 TABLET Chlorpromazine HCl Dose: ORAL, EVERY 4 HOURS Qty: 98 Call-In to (Chlorpromazine HCl) 50 Milligram NEEDED as needed for Refills: 0 Pharm 1 25 MG TABLET ANXIETY, CLEAR THOUGHTS TAKE 2 TAB AT BEDTIME. TAKE 1 TAB IN THE MORNING. TAKE 1 TAB EVERY 4 HOURS, UP TO 4 TABLETS DAILY, NEEDED FOR ANXIETY. Metformin HCl Dose: ORAL, 1/2 HR BEFORE Qty: 28 Call-In to (Metformin HCl) 1, 1,000 BREAKFAST/DINNER for Refills: 0 Pharm 1 000 MG TABLET Milligram DIABETES Insulin Detemir Dose: Inject into fatty Qty: 1 Call-In to (Levemir Flextouch) 10 Units tissue, TWICE DAILY for Refills: 0 Pharm 1 100 UNIT/ML (3 ML) DIABETES INSULN.PEN Phenazopyridine HCl Dose: ORAL, AFTER MEALS as Qty: 42 Call-In to (Phenazopyridine 100 Milligram needed for ABDOMINAL PAIN Refills: 0 Pharm 1 HCl) 100 MG TABLET THREE TIMES DAILY BEFORE MEALS. Potassium Chloride Dose: ORAL, DAILY for Qty: 14 None to (Klor-Con M20) 20 20 supplement Refills: 0 Pharm 1 MEQ TAB.ER.PRT [place] t CONTINUE taking these Home Medications: Pravastatin Sodium Dose: ORAL, Every night for (Pravastatin Sodium) 40 1 Tablet CHOLESTEROL MG TABLET NOT GIVEN IN HOSPITAL Tamsulosin HCl Dose: ORAL, DAILY for URINARY (Tamsulosin HCl) 0.4 MG 1 Capsule Last Taken: 03/16/16 CAP.ER.24H Time: 0800 Furosemide (Furosemide) Dose: ORAL, DAILY for DIURETIC 20 MG TABLET 1 Tablet Last Taken: 03/16/16 Time: 0800 Gabapentin (Gabapentin) Dose: ORAL, 4 TIMES A DAY for 300 MG CAPSULE 1 Capsule MENTAL HEALTH Last Taken:03/16/16 Time: 0800 Albuterol Sulfate Dose: Inhale through mouth, (Ventolin Hfa) 90 MCG 2 Puff EVERY 4-6 HOURS HFA.AER.AD NEEDED as needed for ASTHMA/COPD INCLUDE WITH SPACER NOT GIVEN IN HOSPITAL Diltiazem HCl (Cardizem) Dose: ORAL, DAILY for HEART 120 MG TABLET 1 Tablet RATE Last Taken: 03/16/16 Time: 0800 Prednisone (Prednisone) Dose: ORAL, DAILY for COPD 10 MG TABLET 1 Tablet EXACERBATION On Take 03/09-03/11 6 TAB 1/14-03/14 5 TAB 03/15-03/17 4 TAB 03/18-03/20 3 TAB 03/21-03/23 2 TAB 03/24-03/25 1TAB Then Stop Last Taken: 03/16/16 Time: 0800 STOP taking these DISCONTINUED Home Medications: Aripiprazole (Abilify) 15 MG Dose: ORAL, DAILY for MENTAL HEALTH TABLET 1 Tablet Reason Stopped: Changed to different med Quetiapine Fumarate (Seroquel Dose: ORAL, TAKE AT BEDTIME for MENTAL XR) 300 MG TAB.ER.24H 1 Tablet HEALTH Reason Stopped: Changed to different med Quetiapine Fumarate (Seroquel) Dose: ORAL, TWICE DAILY as needed for 50 MG TABLET 1 Tablet AGITATION Reason Stopped: Changed to different med [facility], [address] [place] [address] Your Preferred Pharmacy [facility] [address] [place] [address] Multiple Neuroleptics: (x) Not Applicable OR Document below three failed attempts at monotherapy, or a plan to taper to monotherapy, or augmentation of Clozapine. () Patient's Diet: Consistent carbohydrate Patient's Activity: No restrictions DC Disposition: Patient returning home, where he lives with his daughter, her boyfriend, and the patient's [id number]. Recommendations: Follow up with your medical appointments, and with [facility]. Take medications as directed. Referred To: Post Discharge Referrals Provider Referral Service Date: 03/16/16 Referred To: Justin Davalos MD [address] [place], [place] [id number] Notes: [address] [place] [address] Mar 16, 2016 at 4pm Provider Referral Referred To: [Care] Notes: [address] [place] [address] Appointment with Ann Marie Carrillo on March 22, 2016 at 4pm. Appointment with Dr. Raman on March 29, 2016 at 12:30pm Provider Referral Referred To: Cody Presley MD [address] [place] [id number] Notes: [address] [place] [address] Appointment on April 05, 2016 at 2pm. Provider Referral Referred To: Elie Armendar[place] [address] Notes: Dim[place] [id number] Appointment on March 28, 2016 at 2:45pm. Copies To: [facility]; JUSTIN DAVALOS MD; ELIE AREMNDARIZ MD; ABDULAZIZ MARCUS,CODY Mckeon; VERONIKA Perkins, CODY
[2016-03-16] MEDS ORDERED: NICORELIEF2 MG PO (13:36)
[2016-03-16] MEDS ORDERED: PHENAZOPYRIDIN100 M3 PO (13:45)
--- NOTE | 2016-03-16 14:03 | NUR ---
PT IS PRESENT ON THE UNIT WITH MOOD STABLE AND IS APPROPRIATE WITH PEERS AND STAFF. INFORMATION PACKET RE: SI, BIPOLAR, ETOH, COPD, HTN, DIABETES GIVEN. PT RESOURCE GUIDE REVIEWED ALONG WITH PERTINENT NUMBERS I.E., [facility], [facility], SUICIDE HOTLINE, ETC. NO COMPLAINTS OR ISSUES REPORTED OR OBSERVED, WHEN ASKED DIRECTLY DENIES SI/HI/HALLUCINATIONS. REPORTS + UNDERSTANDING OF MEDICATION REGIMENT AND MOTIVATION FOR DISCHARGE FOLLOW-UP TREATMENT AND PLAN. PT ALSO REPORTS + AND IMPROVEMENT IN MOOD, SLEEP AND APPETITE.
--- NOTE | 2016-03-16 14:06 | SOCIAL WORKER PROG NOTE PSYCH ---
Social Work Progress Note Progress Note Patient to discharge the hospital today. Patient had family meeting this AM with his daughter and daughters significant other. Patients daughter expressed some concerns as to how her father is going to manage certain stressors/ triggers in his life. Patient reported that he is able to recognize the consequences if he were to act on any negative emotions he may be experiencing and he has no plan or intent at present to act on these feelings. Patient reports less anxiety and feeling more in control of his emotions at present. He denies any thoughts of hurting himself or others. Patients daughter reported that she feels her father has improved since admission and is in support of him returning home. Daughter is also a patient at [facility] and we suggested they look into some type of family suppor/therapy if possible while being treated at [facility]. Patient has appointment with his therapist Ann Marie Carrillo on 03/22/16 @ 4pm and Dr. Raman on 03/29/16 @12:30pm.
== END 2016-03-16 15:30 | DRG 885 ==
LOC: CP SOUTH 15:17
PROVIDERS: ADMIT Psychiatry & Neurology Psychiatry
DX: F31.9 Bipolar disorder, unspecified (principal); E11.9 Type 2 diabetes mellitus without complications; I10 Essential (primary) hypertension; N40.0 Benign prostatic hyperplasia without lower urinary tract symptoms; J44.9 Chronic obstructive pulmonary disease, unspecified; E78.5 Hyperlipidemia, unspecified; Z86.73 Personal history of transient ischemic attack (TIA), and cerebral infarction without residual deficits
CPT/HCPCS: 36415; 76775; 81001; 82436; 87086; J0401; J0780; J3230; J3490; J7512